=== PATIENT | male | born 1945 | race Caucasian/White ===

== ENCOUNTER 2016-07-16 05:24 | Inpatient (IN) | payer OTHER ==
[2016-06-21 13:25] VITALS: BMI 40.0
--- NOTE | 2016-06-21 13:57 | PAT Medication Instructions ---
Service Date Jun 21, 2016. Current Home Medication List Allopurinol (Zyloprim), 150 MG PO QAM Aspirin (Aspirin Ec), 81 MG PO QAM Aspirin Effervescent (Rossana-Jefferson), 1 TAB PO PRN Buspirone Hcl (Buspirone Hcl), 10 MG PO HS Hydrochlorothiazide (Hctz), 25 MG PO QAM Lisinopril (Zestril), 20 MG PO QAM Morphine Sulfate (Ms Contin), 30 MG PO Q8H Multivitamins/Minerals (Mvi With Minerals), 1 TAB PO QAM Oxycodone Ir (Roxicodone Ir), 5 MG PO Q6H PRN for Pain Prazosin Hcl (Prazosin), 2 MG PO HS Trazodone Hcl (Trazodone), 100 MG PO HS [Nystatin Powder], 1 DOSE TOP PRN Medication Instructions For Your Scheduled Surgery - Hold the following medications 7 days prior to surgery per surgeon's instructions: Aspirin (Aspirin Ec), 81 MG PO QAM - Hold the following medications 24 hours prior to surgery: [Nystatin Powder], 1 DOSE TOP PRN - Hold the following medications the morning of surgery: Hydrochlorothiazide (Hctz), 25 MG PO QAM Lisinopril (Zestril), 20 MG PO QAM Multivitamins/Minerals (Mvi With Minerals), 1 TAB PO QAM Aspirin Effervescent (Rossana-Jefferson), 1 TAB PO PRN - Take the following medications the morning of surgery with a sip of water OTHERWISE NOTHING TO EAT OR DRINK AFTER MIDNIGHT: Allopurinol (Zyloprim), 150 MG PO QAM Morphine Sulfate (Ms Contin), 30 MG PO Q8H (may take if needed up to 4 hours prior to surgery) Oxycodone Ir (Roxicodone Ir), 5 MG PO Q6H PRN for Pain (may take if needed up to 4 hours prior to surgery) - Take the following medications as scheduled the night before surgery: Buspirone Hcl (Buspirone Hcl), 10 MG PO HS Prazosin Hcl (Prazosin), 2 MG PO HS Trazodone Hcl (Trazodone), 100 MG PO HS Morphine Sulfate (Ms Contin), 30 MG PO Q8H Oxycodone Ir (Roxicodone Ir), 5 MG PO Q6H PRN for Pain If you have any questions please call us at [phone] or [phone] or [phone]
--- NOTE | 2016-06-21 14:38 | DIAGNOSTIC IMAGING REPORT ---
CHEST 2 VIEWS ROUTINE CLINICAL HISTORY: PAT preoperative evaluation COMPARISON STUDY: No previous studies for comparison. FINDINGS: Moderate cardiomegaly. Mild tortuosity thoracic aorta. Diaphragms smooth. Lungs are clear. IMPRESSION: No acute process. Electronically signed by: Skinny Gilbert M.D. 06/21/2016 2:37 PM Dictated Date/Time: 06/21/2016 2:36 PM
[2016-06-21 15:47] LABS: PARTIAL THROMBOPLASTIN RATIO 1.1; PROTHROMBIN TIME (PATIENT) 11.1 SECONDS (9.0-12.0)
--- NOTE | 2016-07-12 21:43 | HISTORY & PHYSICAL EXAMINATION ---
DATE OF ADMISSION: 07/16/2016 PREOPERATIVE HISTORY AND PHYSICAL SUBJECTIVE CHIEF COMPLAINT: Right knee pain. HISTORY OF PRESENT ILLNESS: The patient is a 71-year-old male who presents with right knee pain. He states that the pain has been getting progressively worse over time. He describes the pain as being aching, sharp and throbbing. It is now occurring continuously. He has tried conservative therapies such as cortisone injections, viscosupplementation, nonsteroidal anti-inflammatories and physical therapy without any relief. He would like to proceed with a right TKA. PAST MEDICAL HISTORY: Significant for hypertension, shortness of breath, GERD, and gout. PAST SURGICAL HISTORY: Left knee surgery in 1963 and tonsillectomy. SOCIAL HISTORY: Denies alcohol use, denies smoking or tobacco use. Denies IV drug use or illegal drug use. He lives in a 2-soni house. He is currently retired. FAMILY HISTORY: Noncontributory. MEDICATIONS: Multivitamin, aspirin 81 mg once a day, buspirone 10 mg once a day, prazosin 2 mg once a day, allopurinol 300 mg once a day, trazodone 50 mg at bedtime, lisinopril 20 mg once a day, hydrochlorothiazide 50 mg once a day and MS Contin 30 mg every 8 hours. ALLERGIES: No known drug allergies. REVIEW OF SYSTEMS: He denies fevers, chills, headaches, weight loss, double vision, blurry vision, sore throat, hearing loss, tremors, dizziness, numbness or tingling, tired, thirsty, hot and cold intolerance, abdominal pain, nausea, vomiting, diarrhea, heartburn, chest pain, swelling into the legs or feet, frequency, going to the bathroom, pain or burning with urination, wheezing, cough or shortness of breath, depression, thoughts to harm himself or harm others, nervousness or anxiousness. He is positive for joint pain, stiffness and swelling of the right knee. OBJECTIVE: GENERAL APPEARANCE: The patient is a 71-year-old male, who is sitting, in no acute distress. He is awake, alert and oriented x3. He is well-dressed, well-nourished. VITAL SIGNS: He is 5 foot 7 inches, 260 pounds. Blood pressure is 144/70. HEENT: Extraocular movements are intact. PERRLA. Mucosa was moist. No septal deviation. NECK: Supple, no lymphadenopathy, no JVD, no thyromegaly. HEART: Regular rate and rhythm with no murmurs or gallops. LUNGS: Clear to auscultation but distant. No wheezing or rhonchi is noticed. ABDOMEN: Soft, nontender, nondistended. Normal bowel sounds, no hepatosplenomegaly. EXTREMITIES: Paying particular attention to the right knee. He is able to extend actively to 0 degrees and actively flex to 90 degrees. He has medial joint line tenderness decreased range of motion. He has a negative Nithin's, negative valgus/varus stress test, negative anterior drawer and negative posterior drawer. IMPRESSION: Severe end-stage osteoarthritis of the right knee. PLAN: The patient is scheduled for a right TKA. The patient has failed conservative therapies including nonsteroidal anti-inflammatories, cortisone injections, Visco injections and physical therapy without relief. The patient wishes to proceed with a right TKA. Risks and benefits to surgery were discussed that were included but not limited to infection, DVT, pain, stiffness, need for revision surgeries, damage to blood vessels, damage to nerves, PE, and anesthesia risks were all discussed with the patient and he wishes to proceed. All questions were answered to his satisfaction. DVT prophylaxis will be aspirin 81 mg twice a day for 30 days MTDD
[~2016-07-16] VITALS: Ht 170.2 cm; Wt 117.8 kg
[2016-07-16] VITALS (8 sets, daily range): BP systolic 108–153; BP diastolic 55–93; PULSE 56–70; TEMP 36.4–36.9; O2SAT 95–98; Ht 170.2 cm; Wt 117.8 kg
[~2016-07-16 05:24] MED LIST: ALLO100T PO; ASPI81TA28 PO; ASPITAB71 PO; BUSP-8 PO; HYDR25TA4 PO; LISI-725 PO; METO25TA56 PO; MORP30TA23 PO; MULT-513 PO; NYSTATIN POWDER TOP; OXYC1TAB3 PO; PRAZ2CAP3 PO; TRAZ100T29 PO
[2016-07-16] MEDS ORDERED: ROPIVACAINE 5MG/ML 30 ML 150 MG, BUPIVACAINE/EPINEPHR 0.5% MPF 30 ML, KETOROLAC TROMETH... INFIL SCH ×7 (06:00)
[2016-07-16] MEDS ORDERED: GABAPENTIN 300 MG CAP PO SCH (06:00)
[2016-07-16] MEDS ORDERED: CEFAZOLIN 2000 MG/60 ML D5W 60 ML IV SCH (06:00)
[2016-07-16] MEDS ORDERED: FAMOTIDINE 20 MG TAB PO SCH (06:00)
[2016-07-16] MEDS ORDERED: METOCLOPRAMIDE HCL 10 MG TAB PO SCH (06:00)
[2016-07-16] MEDS ORDERED: ACETAMINOPHEN 500 MG TAB PO SCH (06:00)
[2016-07-16] MEDS ORDERED: DEXAMETHASONE 4 MG TAB PO SCH (06:00)
[2016-07-16] MEDS ORDERED: LACTATED RINGER'S 1000ML 1,000 ML IV SCH ×2 (06:00)
[2016-07-16] MEDS ORDERED: CeleBREX 200 MG CAP PO SCH (06:00)
[2016-07-16] MEDS ORDERED: LACTATED RINGER'S 1000ML IV SCH (06:00)
[2016-07-16] MEDS ORDERED: BUPIVACAINE 0.25% 30 ML VIAL ONE (06:16)
[2016-07-16] MEDS ORDERED: BUPIVACAINE 0.5 % 5 MG/1 ML PF 10ML VIAL ONE (06:16)
--- NOTE | 2016-07-16 06:55 | History & Physical Bridge Note ---
H&P Re-Evaluation Bridge Note: I have examined the patient, reviewed the History & Physical and in the interval since the performance of the History & Physical I have noted the following changes of clinical significance: No changes noted
[2016-07-16] MEDS ORDERED: PROPOFOL IV EMULSION 10 MG/ML 20 ML VIAL IV ONE (06:57)
[2016-07-16] MEDS ORDERED: LIDOCAINE 2% 20 MG/ML 5ML SYR ONE (06:57)
[2016-07-16] MEDS ORDERED: FENTANYL CITRATE INJ 50 MCG/1 ML 2 ML VIAL ONE (06:57)
[2016-07-16] MEDS ORDERED: MIDAZOLAM HCL 1 MG/ML 2ML VIAL ONE (06:57)
[2016-07-16] MEDS ORDERED: TRANEXAMIC ACID AMP 1,000 MG in NSS 100ML IV SCH ×2 (07:00→07:30)
[2016-07-16] MEDS ORDERED: NURSING VERBAL MED ORDER ONE (07:00)
[2016-07-16] MEDS ORDERED: BACITRACIN 50000 UNIT VIAL ONE (07:02)
[2016-07-16] MEDS ORDERED: ORTHO JOINT ANESTHETIC ONE (07:02)
[2016-07-16] MEDS ORDERED: POVIDONE-IODINE OP SOLN 30 ML BTL ONE (07:02)
[2016-07-16] MEDS ORDERED: PROMETHAZINE HCL INJ 12.5 MG in SODIUM CHLORIDE 0.9% 50ML 50 ML IV PRN (10:15)
[2016-07-16] MEDS ORDERED: ASPIRIN PO SCH (10:15)
[2016-07-16] MEDS ORDERED: MAGNESIUM HYDROXIDE SUSP 30 ML UDC PO PRN (10:15)
[2016-07-16] MEDS ORDERED: ALUMINUM/MAGNESIUM/SIMETH (MAALOX MAX) 30 ML UDC PO PRN (10:15)
[2016-07-16] MEDS ORDERED: BISACODYL 10 MG SUPP PR PRN (10:15)
[2016-07-16] MEDS ORDERED: FLUMAZENIL 0.1 MG/1 ML 10 ML VIAL IV PRN (10:15)
[2016-07-16] MEDS ORDERED: SODIUM BICARBONATE PO SCH (10:15)
[2016-07-16] MEDS ORDERED: EpHEDrine SULFATE INJ 50 MG/ML AMP IV PRN (10:15)
[2016-07-16] MEDS ORDERED: LABETALOL HCL IV 5 MG/ML 20ML IV PRN (10:15)
[2016-07-16] MEDS ORDERED: SOD PHOSPHATE/SOD BIPHOSPHATE ENEMA 132 ML BTL PR PRN (10:15)
[2016-07-16] MEDS ORDERED: ZOLPIDEM TARTRATE 5 MG TAB PO PRN (10:15)
[2016-07-16] MEDS ORDERED: ONDANSETRON INJ 2 MG/ML 2 ML VIAL IV PRN ×2 (10:15)
[2016-07-16] MEDS ORDERED: NALOXONE HCL 0.4 MG/1 ML VIAL/CARP IV PRN (10:15)
[2016-07-16] MEDS ORDERED: CITRIC ACID PO SCH (10:15)
[2016-07-16] MEDS ORDERED: ATROPINE SULFATE 0.1 MG/ML 5ML SYR IV PRN (10:15)
--- NOTE | 2016-07-16 10:47 | DIAGNOSTIC IMAGING REPORT ---
RIGHT KNEE 1 OR 2 VIEWS ROUTINE CLINICAL HISTORY: AP/LATERAL IN PACU RIGHT KNEE Right COMPARISON: None. DISCUSSION: Patient is status post total right knee replacement. There is good contact between prosthetic and underlying bone. Surgical drains are in position. Expected soft tissue postoperative change IMPRESSION: Anatomic alignment status post total right knee replacement Electronically signed by: Skinny Gilbert M.D. 07/16/2016 10:46 AM Dictated Date/Time: 07/16/2016 10:45 AM
--- NOTE | 2016-07-16 10:48 | Anesthesiology Progress Note ---
Anesthesia Post Op Note Date & Time Jul 16, 2016 at 10:48 Vital Signs Pain Intensity: 0 Vital Signs Past 12 Hours Date Time Temp Pulse Resp B/P Pulse Ox O2 Delivery O2 Flow Rate FiO2 07/16/16 10:40 70 16 148/78 100 Nasal Cannula 2 07/16/16 10:30 68 13 146/84 100 Mask 10 07/16/16 10:20 75 16 140/88 100 Mask 10 07/16/16 10:10 36.0 77 16 139/73 98 Mask 10 07/16/16 05:49 36.8 69 18 153/93 98 Room Air Notes Mental Status: alert / awake / arousable, participated in evaluation Pt Amnestic to Procedure: Yes Nausea / Vomiting: adequately controlled Pain: adequately controlled Airway Patency, RR, SpO2: stable & adequate BP & HR: stable & adequate Hydration State: stable & adequate Neuraxial Anesthesia: was administered, sensory block is resolving Anesthetic Complications: no major complications apparent
[2016-07-16] MEDS ORDERED: NYSTATIN POWDER 15GM BTL EXT PRN (11:15)
--- NOTE | 2016-07-16 12:06 | OPERATIVE REPORT ---
DATE OF OPERATION: 07/16/2016 PREOPERATIVE DIAGNOSIS: Right knee degenerative joint disease. POSTOPERATIVE DIAGNOSIS: Same. PROCEDURE: Right total knee arthroplasty. SURGEON: Dr. Gomez. APPIAN DEVELOPER: Moe Roberto PA-C, who was necessary for assistance of procedure with positioning, prepping, draping, retraction and closure. ANESTHESIA: Spinal with adductor canal block. SPECIMEN: Bone and tissue. ESTIMATED BLOOD LOSS: 20 mL. IMPLANTS: Travis \T\ Nephew Journey version 2, femur 5, tibia 5, poly 9, and patella 32 oval. DRAINS: Two Hemovac. COMPLICATIONS: None. INDICATIONS: The patient is a 71-year-old male with longstanding osteoarthritis of the right knee and bone on bone medial compartment. He is failing conservative measures including injection and anti-inflammatories. He wished to proceed with right total knee arthroplasty. Risks, benefits and alternatives to surgery including, but not limited to infection, DVT, pain, stiffness, need for urgent surgery, failure to relieve all symptoms, damage to blood vessels, damage to nerves, and risks of anesthesia were discussed with the patient and he wished to proceed. DESCRIPTION OF PROCEDURE: The patient was identified, laterality was confirmed and marked. He received a preoperative antibiotic as well as a spinal anesthetic and adductor canal block. The leg was prepped and draped in usual sterile manner with ChloraPrep. The limb was exsanguinated and tourniquet was inflated. I made a longitudinal incision in the anterior aspect of the knee, sharply incising the skin utilizing Bovie electrocautery to achieve hemostasis. I made a medial parapatellar arthrotomy. Next, I excised the anterior horns of the medial and lateral meniscus and elevated the deep MCL off the medial face of the tibia. I then pinned into place patient matched distal femoral cutting guide, made my distal femoral resection and pinned into place a size 5-in-1 cutting guide. I then made my anterior, posterior and chamfer cuts. I then pinned into place patient matched tibial cutting guide, made my tibial resection and then removed the remaining portions of the meniscus. I then positioned and pinned into place a size 5 tibia cut for the post. Posterior osteophytes were then removed off of the femur and the trial femur was placed into position. We reamed the trochlear component and placed the trochlear into position. I then placed a 9 poly, had good range of motion, good soft tissue balancing with a 9. I then prepared the patella with freehand cut, sized and drilled for a size 32 oval. Wound was thoroughly irrigated. Trial components were removed. Deep tissues were anesthetized with an ortho mix solution and then with Simplex HV with gent cement, cemented the definitive components. This was a size 5 femur, tibia 5, poly 9, and patella 32 oval. A Betadine soak was performed. The arthrotomy was then closed with interrupted #1 Vicryl suture after deep drain was placed. Subcutaneous tissue was closed with interrupted 2-0 Vicryl suture and skin with ksenia. Sterile dressing was applied and tourniquet was released. All needle and sponge counts were correct at the end of the procedure. The patient was transferred to the PACU in stable condition without apparent complication. I attest to the content of the Intraoperative Record and any orders documented therein. Any exceptio ns are noted below.
[2016-07-16] MEDS: D5W AND 1/2NSS + 20MEQ KCL 1,000 ML IV SCH ×2 (12:21→21:50)
[2016-07-16] MEDS: FERROUS GLUCONATE 324 MG TAB PO SCH ×2 (12:21→18:05)
[2016-07-16] MEDS: ACETAMINOPHEN 500 MG TAB PO SCH ×2 (13:51→21:52)
[2016-07-16] MEDS: OXYCODONE HCL IR 5 MG TAB (IMMEDIATE RELEASE) PO PRN ×3 (14:21→22:02)
[2016-07-16] MEDS: CEFAZOLIN IV 2,000 MG in DEXTROSE 5% 50ML 50 ML IV SCH ×2 (16:13→23:46)
[2016-07-16] MEDS: METOPROLOL TARTRATE 25 MG TAB PO SCH (21:00)
[2016-07-16] MEDS: TRAZODONE HCL 100 MG TAB PO SCH (21:50)
[2016-07-16] MEDS: SENNA 8.6 MG TAB PO SCH (21:51)
[2016-07-16] MEDS: OXYCODONE HCL 10 MG TABCR (OXYCONTIN) PO SCH (21:51)
[2016-07-16] MEDS: CeleBREX 200 MG CAP PO SCH (21:52)
[2016-07-16] MEDS: ASPIRIN 81 MG ECTAB PO SCH (21:52)
[2016-07-16] MEDS: DOCUSATE SODIUM 100 MG CAP PO SCH (21:53)
[2016-07-16] MEDS: PRAZOSIN HCL 1 MG CAP PO SCH (21:54)
[2016-07-17] VITALS (8 sets, daily range): BP systolic 101–153; BP diastolic 62–81; PULSE 55–82; TEMP 36.4–36.9; O2SAT 87–100
[2016-07-17] MEDS: ACETAMINOPHEN 500 MG TAB PO SCH ×3 (05:39→21:14)
[2016-07-17 05:49] LABS: HEMATOCRIT 32.9 % (42-52); MEAN CELL VOLUME 88.9 fL (80-100); MEAN CORPUSCULAR HEMOGLOBIN 30.3 pg (25-34); MEAN PLATELET VOLUME 9.1 fL (7.4-10.4); PLATELET COUNT 179 K/uL (130-400); WHITE BLOOD COUNT 11.29 K/uL (4.8-10.8)
[2016-07-17 05:57] LABS: INR 1.1 (0.9-1.1); PROTHROMBIN TIME (PATIENT) 11.6 SECONDS (9.0-12.0)
[2016-07-17 06:20] LABS: BUN/CREATININE RATIO 27.5 (10-20); CREATININE 1.8 mg/dl (0.60-1.40); POTASSIUM 4.8 mmol/L (3.5-5.1)
[2016-07-17] MEDS: OXYCODONE HCL IR 5 MG TAB (IMMEDIATE RELEASE) PO PRN ×3 (07:22→21:12)
[2016-07-17] MEDS: D5W AND 1/2NSS + 20MEQ KCL 1,000 ML IV SCH (07:23)
[2016-07-17] MEDS: OXYCODONE HCL 10 MG TABCR (OXYCONTIN) PO SCH ×2 (08:38→21:10)
[2016-07-17] MEDS: METOPROLOL TARTRATE 25 MG TAB PO SCH ×2 (08:39→21:00)
[2016-07-17] MEDS: FERROUS GLUCONATE 324 MG TAB PO SCH ×3 (08:39→15:56)
[2016-07-17] MEDS: LISINOPRIL 20 MG TAB PO SCH (08:39)
[2016-07-17] MEDS: MULTIVITAMIN TAB PO SCH (08:39)
[2016-07-17] MEDS: PANTOprazole SOD 40 MG TAB PO SCH (08:39)
[2016-07-17] MEDS: CeleBREX 200 MG CAP PO SCH ×2 (08:40→21:11)
[2016-07-17] MEDS: DOCUSATE SODIUM 100 MG CAP PO SCH ×2 (08:40→21:00)
[2016-07-17] MEDS: HYDROCHLOROTHIAZIDE 25 MG TAB PO SCH (08:40)
[2016-07-17] MEDS: ALLOPURINOL 100 MG TAB PO SCH (08:40)
[2016-07-17] MEDS: ASPIRIN 81 MG ECTAB PO SCH ×2 (08:40→21:10)
--- NOTE | 2016-07-17 10:12 | Orthopedic Progress Note ---
Orthopedic Progress Note Date of Service Jul 17, 2016. Subjective Post OP Day: 1 Reports: feeling well, pain controlled w PO medications, Denies: SOB, calf pain , chest pain, light headedness, nausea / vomiting Additional Notes: Would like to go home today if therapy goes well. Objective calves soft nontender, N/V intact, capillary refill less than 2 sec., dressing C /D/I, A&O x3, toes mobile, hemovac drainage (75 cc today.) Date Time Temp Pulse Resp B/P Pulse Ox O2 Delivery O2 Flow Rate FiO2 07/17/16 07:33 36.4 69 19 128/81 97 Room Air 07/17/16 07:20 Room Air 07/17/16 06:00 73 07/17/16 03:05 36.4 55 15 153/75 98 Room Air 07/16/16 23:35 Room Air 07/16/16 23:11 36.4 60 16 108/55 98 Room Air 07/16/16 20:22 36.7 70 16 133/80 97 Room Air 07/16/16 16:00 Nasal Cannula 2.0 07/16/16 15:30 36.4 61 16 139/81 95 Nasal Cannula 2.0 07/16/16 13:08 36.9 70 17 132/70 97 Nasal Cannula 2.0 07/16/16 12:06 36.6 56 20 132/77 98 Nasal Cannula 2.0 07/16/16 11:42 36.6 68 18 123/77 97 Nasal Cannula 2.0 07/16/16 11:10 98 Nasal Cannula 2.0 07/16/16 11:10 Nasal Cannula 07/16/16 11:10 36.6 69 18 121/68 98 Nasal Cannula 2.0 07/16/16 11:01 60 17 112/79 98 Nasal Cannula 2 07/16/16 10:50 36.7 66 16 146/80 98 Nasal Cannula 2 07/16/16 10:40 70 16 148/78 100 Nasal Cannula 2 07/16/16 10:30 68 13 146/84 100 Mask 10 07/16/16 10:20 75 16 140/88 100 Mask 10 Laboratory Results 24 Hours: Test 07/17/16 05:30 07/17/16 05:35 Hematocrit 32.9 % Hemoglobin 11.2 g/dL Prothromb Time International Ratio 1.1 Prothrombin Time 11.6 SECONDS Assessment & Plan Assessment: POD #1 s/p right TKA Plan: PT/OT Plan for d/c today after therapy. Inhouse Planning Pain Management: Celebrex, Oxycontin, PO Tylenol, Oxy IR DVT Prophylaxis: TEDs, ASA Discharge Planning Discharge Planning: home with home health Pain Management: Celebrex, Oxycontin, PO Tylenol, Oxy IR DVT Prophylaxis: TEDs, ASA
[2016-07-17] MEDS ORDERED: RXC5 PO (10:15)
[2016-07-17] MEDS ORDERED: ACET-1138 PO (10:15)
[2016-07-17] MEDS ORDERED: OXYSR10 PO (10:15)
[2016-07-17] MEDS ORDERED: ONDA8TAB6 PO (10:15)
[2016-07-17] MEDS ORDERED: ASPEC81 PO (10:15)
[2016-07-17] MEDS ORDERED: CLB200 PO (10:15)
--- NOTE | 2016-07-17 10:17 | Discharge Instructions ---
Discharge Instructions Date of Service Jul 17, 2016. Admission Reason for Admission: Right Knee Osteoarthritis Discharge Discharge Diagnosis / Problem: right knee osteoarthritis Discharge Goals Goal(s): Decrease discomfort, Improve function Activity Recommendations Activity Limitations: as noted below Lifting Limitations: until after follow-up appointment Exercise/Sports Limitations: until after follow-up appointment May Resume Sexual Activity: when tolerated Shower/Bathe: keep incision dry (Keep Silverlon dressing in place for 7 days.) Driving or Machine Use: When cleared by Dr. Gomez's clinic. Weightbearing Status: Right weightbearing (as tolerated) . Instructions / Follow-Up Instructions / Follow-Up ACTIVITY RECOMMENDATIONS: SELF CARE INSTRUCTIONS AFTER TOTAL KNEE REPLACEMENT A. You may need to continue a physical therapy program after discharge from the hospital. There are several options available to you. Your doctor will assist you in selecting the best one for you. 1. An out-patient facility 3 times a week for therapy. 2. Home therapy for 1 to 2 weeks with outpatient therapy to follow. 3. Continue working on all exercises taught by physical therapy three times a day for 20 minutes on non-therapy days. Your goals should be to increase the bending of your knee to 90 degrees and beyond and to fully straighten your knee. Ice and elevate knee after exercise. B. Weight as tolerated with a walker or as instructed by your physician. C. It is okay to shower if minimal to no drainage from incision. No Baths. Do not soak wound. D. Make walking a part of your daily routine. Be up as much as comfortable with rest periods throughout the day. Rest with leg elevation is very important. Use the ice wrap frequently for the first 3-4 weeks. E. There are no restrictions on activities. You may ride in a car, shop, participate in chief medical director and all social activities. F. Wear the long elastic stockings (STALIN hose) 20 hours a day for one month after surgery. They can be removed several times a day for laundering and when showering. G. Silverlon- This is a large adhesive bandage that contains silver ions. This helps your incision heal by fighting off bacteria and protecting it from the outside environment. You are permitted to shower with this dressing. This will remain on your incision for 7 days and then should be removed. Some visible blood or drainage through the dressing window is normal. If there is significant drainage or leaking noted before the 7 days notify your doctor's office immediately. Once removed, keep incision clean and dry. If there is any drainage or redness noted, please call your surgeon. SPECIAL CARE INSTRUCTIONS: VERY IMPORTANT TO READ AND REVIEW A. Take Coumadin, Xarelto, Aspirin or Lovenox (blood thinning medications) as directed by your doctor. If on Coumadin, have a pro-time (blood test) drawn according to your doctor's instructions. This will tell the doctor how well the Coumadin is thinning your blood. B. There are a few signs you need to watch for after you are home. Call [facility] if you notice any of the followin. Increased severe knee pain. Some pain is expected especially when you exercise. 2. Increased swelling in your leg or knee; pain or swelling of the calf muscle in either lower leg. 3. Any redness or fluid drainage from the incision. 4. Shortness of breath or chest pain. 5. A Temperature of 101 degrees F or greater. C. Please call [facility] at if you have any concerns or questions about your operation or recovery. The doctor or his nurse will return your call promptly. D. You must take antibiotics before dental work, bladder, bowel or other surgery. Your doctor will provide you with a permanent care to carry describing this precaution. FOLLOW UP VISIT: If appointment is not already scheduled: Please call [facility] to make a follow-up appointment for one month after your surgery at . Current Hospital Diet Patient's current hospital diet: Regular Diet Discharge Diet Recommended Diet: Regular Diet Procedures Procedures Performed: Right Total Knee Arthroplasty Cemented Pending Studies Studies pending at discharge: no Medical Emergencies . Who to Call and When: Medical Emergencies: If at any time you feel your situation is an emergency, please call [phone] immediately. . Non-Emergent Contact Non-Emergency issues call your: Surgeon Call Non-Emergent contact if: temperature is above 101, your pain is not controlled, your pain is worsening, wound has increased drainage, wound has increased redness, wound has increased pain . "Provider Documentation" section prepared by Dexter Altamirano. VTE Core Measure Inpt VTE Proph given/why not?: Other Anticoagulation (Aspirin 81 mg every 12 hours for 30 days.), T.E.D. Stockings
[2016-07-17] MEDS: SENNA 8.6 MG TAB PO SCH (21:00)
[2016-07-17] MEDS: TRAZODONE HCL 100 MG TAB PO SCH (21:10)
[2016-07-17] MEDS: PRAZOSIN HCL 1 MG CAP PO SCH (21:11)
[2016-07-18] MEDS: OXYCODONE HCL IR 5 MG TAB (IMMEDIATE RELEASE) PO PRN ×2 (01:59→10:12)
[2016-07-18] MEDS: ACETAMINOPHEN 500 MG TAB PO SCH (06:36)
[2016-07-18 07:36] VITALS: BP 144/75; PULSE 65; TEMP 36.5; O2SAT 96
--- NOTE | 2016-07-18 08:20 | Orthopedic Progress Note ---
Orthopedic Progress Note Date of Service Jul 18, 2016. Subjective Post OP Day: 2 Reports: complaints (Knee is sore today but states he had a ramp put in at his house so he won't have to do the steps into the house.), feeling well, pain controlled w PO medications, Denies: SOB, calf pain, chest pain, light headedness, nausea / vomiting Objective calves soft nontender, N/V intact, capillary refill less than 2 sec., dressing C /D/I, A&O x3, toes mobile Patient resting comfortably and was asleep in bed upon my arrival. Silverlon dressing in place. Date Time Temp Pulse Resp B/P Pulse Ox O2 Delivery O2 Flow Rate FiO2 07/18/16 07:36 36.5 65 19 144/75 96 Room Air 07/17/16 23:50 Room Air 07/17/16 23:23 36.6 71 20 138/78 97 Room Air 07/17/16 21:15 71 101/62 07/17/16 15:30 Room Air 07/17/16 14:59 36.6 77 16 110/68 98 Room Air 07/17/16 13:07 82 87 07/17/16 12:30 36.9 71 17 102/64 100 Room Air 07/17/16 11:10 36.4 69 19 97 Room Air Assessment & Plan Assessment: POD #2 s/p right TKA Plan: PT/OT Plan for d/c today after therapy. Inhouse Planning Pain Management: Celebrex, Oxycontin, PO Tylenol, Oxy IR DVT Prophylaxis: Navid ASA Discharge Planning Discharge Planning: home with home health Pain Management: Celebrex, Oxycontin, PO Tylenol, Oxy IR DVT Prophylaxis: TEDs ASA
[2016-07-18] MEDS: OXYCODONE HCL 10 MG TABCR (OXYCONTIN) PO SCH (08:22)
[2016-07-18] MEDS: ALLOPURINOL 100 MG TAB PO SCH (08:23)
[2016-07-18] MEDS: FERROUS GLUCONATE 324 MG TAB PO SCH (08:23)
[2016-07-18] MEDS: CeleBREX 200 MG CAP PO SCH (08:23)
[2016-07-18] MEDS: DOCUSATE SODIUM 100 MG CAP PO SCH ×2 (08:23→08:29)
[2016-07-18] MEDS: METOPROLOL TARTRATE 25 MG TAB PO SCH (08:24)
[2016-07-18] MEDS: ASPIRIN 81 MG ECTAB PO SCH (08:24)
[2016-07-18] MEDS: PANTOprazole SOD 40 MG TAB PO SCH (08:24)
[2016-07-18] MEDS: MULTIVITAMIN TAB PO SCH (08:24)
[2016-07-18] MEDS: LISINOPRIL 20 MG TAB PO SCH (08:25)
[2016-07-18] MEDS: HYDROCHLOROTHIAZIDE 25 MG TAB PO SCH (08:25)
--- NOTE | 2016-07-21 11:34 | DISCHARGE SUMMARY ---
ADMISSION DIAGNOSIS: Right knee osteoarthritis. DISCHARGE DIAGNOSIS: Status post right total knee arthroplasty. ADMITTING PHYSICIAN: Dr. Shaan Gomez. CONSULTS: None. PROCEDURE: On 07/16/2016 the patient had a right TKA. HISTORY OF PRESENT ILLNESS: The patient is a 71-year-old male who presented with right knee pain. He states that the pain is getting progressively worse over time. He described the pain as being aching, sharp and throbbing and now occurs continuously. He has tried conservative therapies including cortisone injections, Visco injections, nonsteroidal anti-inflammatories, and physical therapy without relief. He would like to proceed with a right TKA. Postop day 1 the patient reports feeling well. Pain was controlled with p.o. medications. He denied shortness of breath, calf pain, chest pain, lightheadedness, nausea or vomiting. His Hemovac drainage was 75 mL. His plan was to be discharged after therapy. Postop day 2 the patient complained of the knee feeling sore but his pain was controlled with p.o. medications. He denied shortness of breath, calf pain, chest pain, lightheadedness, nausea or vomiting. Silverlon dressing was intact. Plan was to be discharged after physical therapy. DISCHARGE CONDITION: Stable. DISPOSITION: Home with home health. MEDICATIONS: Acetaminophen 1000 mg by mouth every 8 hours, aspirin 81 mg twice a day for 30 days, Celebrex 200 mg by mouth twice daily, Zofran 8 mg by mouth every 8 hours as needed for nausea, Oxycotin 10 mg by mouth every 12 hours , oxycodone 5-10 mg by mouth every 4 hours as needed for pain, allopurinol 150 mg by mouth daily in the morning, buspirone 10 mg by mouth at bedtime, hydrochlorothiazide 25 mg by mouth daily in the morning, lisinopril 20 mg by mouth daily in the morning, Lopressor 25 mg by mouth twice daily taking one-half tablet twice daily, prazosin 2 mg by mouth at bedtime, trazadone 100 mg by mouth at bedtime. INSTRUCTIONS: The patient is allowed to weight bear on the right lower extremity as tolerated. He is to keep the incision dry and Silverlon dressing in place for 7 days. He is to start physical therapy 3 times a week. His goal is to reach 90 degrees of flexion and be able to fully straighten his knee. He is to no soak his wound or to bathe. He is allowed to take a shower and allow water to run over his incision as long as there is no drainage. He is to wear long elastic stockings 20 hours a day for 1 month after surgery. Silverlon dressing will be in place for 7 days. He is to call [facility] if he notices increase in knee pain, any swelling or drainage from the incision site, any shortness of breath or chest pain, or fever greater than 101 degrees. He is to follow up in 12-14 days after surgery with Dr. Gomez or his physician ob gyn physician assistant. JONAH
== END 2016-07-18 12:46 | disposition home health service (06) | DRG 470 ==
LOC: ENRESERVDT → ENRESERVTM → C.ACU 05:24 → C.3E 07:00
PROVIDERS: ADMIT Orthopaedic Surgery; ATTEND Orthopaedic Surgery
PROC: 0SRC0J9 Replacement of Right Knee Joint with Synthetic Substitute, Cemented, Open Approach (ICD-10-PCS; principal; 2016-07-16 07:45)
DX: M17.11 Unilateral primary osteoarthritis, right knee (principal); I10 Essential (primary) hypertension; K21.9 Gastro-esophageal reflux disease without esophagitis; M10.9 Gout, unspecified; Z79.82 Long term (current) use of aspirin; Z79.899 Other long term (current) drug therapy

== ENCOUNTER 2016-07-26 17:10 | Inpatient (IN) | payer OTHER ==
[~2016-07-26] VITALS: Ht 170.2 cm; Wt 130.0 kg
[~2016-07-26 17:10] MED LIST changes: +ACET-1138 PO; +ASPEC81 PO; -ASPI81TA28 PO; +CLB200 PO; -MORP30TA23 PO; +ONDA8TAB6 PO; +OXYSR10 PO; +RXC5 PO
[2016-07-26 18:30] VITALS: BP 103/56; PULSE 79; TEMP 36.8; O2SAT 98; Ht 170.2 cm; Wt 130.0 kg
[2016-07-26] MEDS: PATIENT'S HEIGHT AND/OR WEIGHT NEEDED SCH ×5 (19:00→20:22)
[2016-07-26] MEDS ORDERED: MoRPHine SULFATE 4 MG/ML 1 ML CARP\\VIAL IV PRN (19:00)
[2016-07-26] MEDS ORDERED: VANCOMYCIN CONSULT ACTIVE PRN (19:00)
[2016-07-26] MEDS ORDERED: OXYCODONE HCL IR 5 MG TAB (IMMEDIATE RELEASE) PO PRN (19:00)
[2016-07-26] MEDS ORDERED: MoRPHine SULFATE 2 MG/ML CARP IV PRN (19:00)
[2016-07-26] MEDS ORDERED: VANCOMYCIN INJ 2,750 MG in SODIUM CHLORIDE 0.9% 500ML 500 ML IV ONE (19:00)
--- NOTE | 2016-07-26 20:04 | HISTORY & PHYSICAL EXAMINATION ---
DATE OF ADMISSION: 07/26/2016 CHIEF COMPLAINT: Right leg pain. HISTORY OF PRESENT ILLNESS: The patient is a 71-year-old male who about a week and a half ago underwent right total knee arthroplasty. He did well postoperatively. He was on the commode earlier today was trying to get up, tripped and had a hyperflexion type injury to the knee. He had immediate pain and inability to bear weight. He was seen and evaluated at [facility]. X-rays demonstrated a spiral oblique fracture of the right femur. He was also found to have a popliteal clot and developing cellulitis along the tibia. He was also noted to have a significantly elevated D-dimer as well as elevated BUN and creatinine. He was placed in an immobilizer and transferred to [facility] for definitive care of the fracture. Currently, complaining of right leg pain. Denies numbness, tingling. Denies loss of consciousness. PAST MEDICAL HISTORY: Hypertension, shortness of breath, GERD, gout. PAST SURGICAL HISTORY: Right total knee arthroplasty, tonsillectomy, left knee surgery in 1963. SOCIAL HISTORY: Denies smoking, alcohol or drug use. FAMILY HISTORY: Noncontributory. MEDICATIONS: Multivitamin, aspirin 81 mg p.o. every day, buspirone 10 mg p.o. every day, prazosin 2 mg every day, allopurinol 300 mg every day, trazodone 50 mg at bedtime, lisinopril 20 mg p.o. every day, hydrochlorothiazide 50 mg p.o. every day, MS Contin 30 mg p.o. q. 8 hours, oxycodone. ALLERGIES: No known drug allergies. REVIEW OF SYSTEMS: As above. PHYSICAL EXAMINATION: GENERAL APPEARANCE: Alert and oriented x3, no acute distress. Mood and affect normal subsequent. HEENT: Atraumatic. CHEST: Clear. CARDIOVASCULAR: Regular rhythm. EXTREMITIES: Right lower extremity. He has anterior incision consistent with right total knee arthroplasty. The incision itself is clean, dry and intact. There is swelling distally with some erythema from about the proximal quarter of the tibia distally along the tibia extending out laterally. The incision itself does not have a whole lot of erythema, but he does have erythema distally. He also has blistering over the foot which is serous and some ecchymoses on the region of the heel. Light touch sensation is intact, distally he is able to move the toes. IMAGING DATA: X-ray from outside facility demonstrated a spiral oblique fracture of the distal femur. There is technique artifact on multiple images, the fracture itself is not visualized well on one single image, but the prosthesis appears to be intact with no evidence of loosening. Fracture does not appear to extend to the implant. LABORATORY DATA: White blood cell count is 11, hemoglobin 9.5. BUN and creatinine significantly elevated. D-dimer significantly elevated. ASSESSMENT: Right femur fracture one and half week status post right total knee arthroplasty. PLAN: We are going to check some new x-rays of the femur as I am unsatisfied with the quality of the images that we have currently. If does demonstrate displaced fracture, he will need open reduction internal fixation, but whether this is with intramedullary nail or with plate fixation would be more dictated by better x-rays. He has evidence of a clot in the leg on ultrasound. I would not like to put him on anticoagulation, given his femur fracture. Given the need to manipulate the leg to fixate the fracture, I will be consulting vascular surgery for evaluation for possible IVC filter placement. Will also consult medicine for preoperative clearance clearly given his elevated kidney function labs. He had a dose of Rocephin in the Emergency Room and I will continue him on IV vancomycin for treatment of cellulitis of lower extremity. This is likely a combination of little bit of cellulitis as well as some erythema and swelling just from his DVT. He is to be nonweightbearing in the right lower extremity. He will be n.p.o. after midnight. I do not know whether he will be cleared for surgery tomorrow or if will be able to get an IVC filter into him tomorrow, so I do not know whether we will be able to perform the ORIF tomorrow or not. He is tentatively on the schedule for this but will be pending both medical clearance as well as the resolution of the cellulitis as well as evaluation by vascular surgery for possible IVC filter.
--- NOTE | 2016-07-26 20:12 | DIAGNOSTIC IMAGING REPORT ---
RIGHT FEMUR 2 VIEWS ROUTINE CLINICAL HISTORY: Right femur pain. History of fracture. COMPARISON: Outside study dated 07/26/2016 DISCUSSION: There are postsurgical changes of a total knee arthroplasty. There is a comminuted displaced fracture of the distal femoral diaphysis. There is 16 degrees of angulation at the fracture site. There is 4 cm of anterior displacement of the major distal fragment. IMPRESSION: Angulated displaced comminuted fracture of the right femur at the junction of the middle and distal one third.. Electronically signed by: Roel Ruiz M.D. 07/26/2016 8:11 PM Dictated Date/Time: 07/26/2016 8:09 PM
--- NOTE | 2016-07-26 20:13 | Pharmacy Progress Note ---
Pharmacy Antibiotic Consult Date of Service: Jul 26, 2016. Pharmacy Dosing Scope Pharmacy is consulted to initiate vancomycin IV dosing therapy, order appropriate labs and adjust drug dose/frequency. Subjective The patient is a 71 year old male admitted on Jul 26, 2016 at 18:43 after he fell at home. He fractured his femur. He had a right TKA earlier in July. Objective Weight (Kilograms): 117.8 Lab Results (24hrs): Laboratory Tests Test 07/26/16 19:25 07/26/16 19:34 Creatinine 4.30 mg/dl Assessment & Plan Loading dose: vancomycin 2750 mg (23 mg/kg) IV X 1 dose then: Random level has been ordered for: . I believe that his JOHN may resolve overnight so I will order a random level tomorrow morning. Goal peak level estimate: between 35 - 40 mcg/mL. Goal trough level estimate: between 15 - 20 mcg/mL (indication: joint infection ). Pharmacy will continue to follow and will adjust dose/frequency as necessary. Thank you
[2016-07-26] MEDS: D5W AND 1/2NSS 1,000 ML IV SCH (20:49)
[2016-07-26] MEDS: OXYCODONE HCL 10 MG TABCR (OXYCONTIN) PO SCH (20:53)
[2016-07-26 21:00] LABS: BASO % 0.1 %; BASO ABS # 0.01 K/uL (0-0.2); EOS % 0.1 %; HEMATOCRIT 24.7 % (42-52); IG% 0.3 %; LYMPH % 10.1 %; LYMPH ABS # 0.78 K/uL (1.2-3.4); MEAN CELL VOLUME 89.5 fL (80-100); MEAN CORPUSCULAR HEMOGLOBIN 30.8 pg (25-34); MEAN CORPUSCULAR HGB CONC 34.4 g/dl (32-36); MEAN PLATELET VOLUME 8.3 fL (7.4-10.4); MONO % 7.4 %; PLATELET COUNT 232 K/uL (130-400); RED BLOOD COUNT 2.76 M/uL (4.7-6.1); WHITE BLOOD COUNT 7.72 K/uL (4.8-10.8)
[2016-07-26] MEDS ORDERED: TAMS0.4C38 PO (21:14)
[2016-07-26 21:30] LABS: BUN/CREATININE RATIO 28.1 (10-20); CALCIUM 7.7 mg/dl (8.5-10.1); CREATININE 4.2 mg/dl (0.60-1.40); MAGNESIUM 2.6 mg/dl (1.8-2.4); POTASSIUM 4.9 mmol/L (3.5-5.1)
[2016-07-26 21:36] LABS: COMPLETE YES
--- NOTE | 2016-07-26 22:12 | Medical Consult ---
Consultation Date of Consultation: Jul 26, 2016. Attending Physician: Shaan Gomez M.D. Reason for Consultation: Medical management History of Present Illness Patient seen and examined. 71 year old male with PMHx of HTN, GERD, and gout is seen in consultation for medical management at the request of Dr. Gomez. Patient had a RTKA on 07/16. Since then he was doing fairly well and discharged home with home PT and nursing care. 2 days ago patient began developing erythema , edema, and blisters to the RLLE. He went to [facility] ED yesterday and was apparently told this was a normal finding and discharged home. Today the patient was in the bathroom and when he stood up from the commode he fell onto his right side. He denies being able to get up and laid there until his home nurse arrived about a half hour later. He reported immediate pain to the RLLE. He denies any chest pain, lightheadedness, dizziness prior to the fall. He reports over the last few days he has had chills but denies fevers. He denies URI symptoms, chest pain, palpitations, nausea, vomiting, diarrhea, dysuria. He reports poor po intake. He reports significant tylenol use. He reports daily dilshad seltzer for GERD which contains aspirin. He takes Celebrex, otherwise he denies any additional NSAID use. Today patient was transported to [facility] by EMS. In the ED patient was hypotensive, he had leukocytosis, lactate was normal. He was diagnosed with cellulitis and received Rocephin. Patient also had a right femur fracture. Lab work also revealed, an elevated Ddimer, K+ of 5.8, and crea of 4.8. Doppler US showed right acute popliteal DVT. Patient received IVFs, pain control, and rocephin and was transferred to [facility] for further care. Past Medical/Surgical History Medical Problems: (1) GERD (gastroesophageal reflux disease) Status: Chronic (2) Gout Status: Chronic (3) HTN (hypertension) Status: Chronic Surgical Problems: (1) History of tonsillectomy Status: Chronic (2) History of total knee arthroplasty Status: Chronic Social History Smoking Status: Never Smoker Alcohol Use: none Housing Status: lives with family Occupation Status: retired Allergies Coded Allergies: No Known Allergies (Unverified , 06/21/16) Current Inpatient Medications Current Inpatient Medications Medications (Trade) Dose Ordered Sig/Dwight Route Start Time Stop Time Status Last Admin Dose Admin Oxycodone HCl (Roxicodone Immediate Rel Tab) 5 mg Q4H PRN PO 07/26/16 19:00 08/09/16 18:59 Oxycodone HCl (Oxycontin Tab) 10 mg Q12 PO 07/26/16 21:00 08/09/16 20:59 07/26/16 20:53 10 MG Ondansetron HCl 4 mg 4 mg Q4H PRN IV 07/26/16 19:00 08/25/16 18:59 Dextrose/Sodium Chloride (D5W And 1/2nss) 1,000 ml @ 75 mls/hr [id number] IV 07/26/16 19:00 08/25/16 18:59 07/26/16 20:49 75 MLS/HR Vancomycin HCl (Consult) 1 ea UD PRN N/A 07/26/16 19:00 08/25/16 18:59 Hydromorphone HCl (Dilaudid Inj) 1 mg Q3H PRN IV 07/26/16 22:00 08/09/16 21:59 UNV Allopurinol (Zyloprim Tab) 150 mg QAM PO 07/27/16 09:00 08/26/16 08:59 UNV Metoprolol Tartrate (Lopressor Tab) 12.5 mg BID PO 07/27/16 09:00 08/26/16 08:59 UNV Tamsulosin HCl (Flomax Cap) 0.4 mg DAILY PO 07/27/16 09:00 08/26/16 08:59 UNV Trazodone HCl (Desyrel Tab) 100 mg HS PO 07/27/16 21:00 08/26/16 20:59 UNV Non-Formulary Medication (Buspirone Hcl ) 10 mg HS PO 07/27/16 21:00 08/26/16 20:59 UNV Non-Formulary Medication (Prazosin Hcl (Prazosin)) 2 mg HS PO 07/27/16 21:00 08/26/16 20:59 UNV Review of Systems See above for pertinent positives & negatives. A total of 10 systems reviewed and were otherwise negative. Physical Exam Date Time Temp Pulse Resp B/P Pulse Ox O2 Delivery O2 Flow Rate FiO2 07/26/16 18:30 Room Air 07/26/16 18:30 36.8 79 16 103/56 Room Air 07/26/16 18:30 36.8 79 16 103/56 98 Room Air General- awake; alert; NAD Eyes- EOMI; no scleral icterus Neck- no stridor; trachea midline Lungs- CTA bilaterally anteriorly Heart- RRR; no m/r/g Abdomen- soft; NT; obese; nBS Extremities- RLE in immobilizer; 2+ edema of RLE; trace edema of LLE Neuro- no focal deficits Skin- erythema of RLE from foot to below the knee; ksenia c/d/i; minimal serous drainage from surgical sight . General Appearance: + pertinent finding (Pleasant WD/WN 71 year old male lying inbed in NAD with family at bedside ) Head: normocephalic, atraumatic Eyes: PERRL, EOMI, sclerae normal ENT: hearing grossly normal, pharynx normal Neck: supple, no JVD Respiratory/Chest: chest non-tender, lungs clear, normal breath sounds, no respiratory distress, no accessory muscle use Cardiovascular: regular rate, rhythm, no gallop, no JVD, no murmur, normal peripheral pulses Abdomen/GI: normal bowel sounds, non tender, soft Extremities/Musculoskelatal: + pertinent finding (Immobiler to right leg removed revealing, erythema to RLLE, with scattered blistering, RTKA incission without drainage or signs of infection, pulse intact, +1 pedal edema) Neurologic/Psych: alert, oriented x 3, + pertinent finding (no focal deficits on gross exam ) Skin: normal color Lymphatic: no adenopathy Laboratory Results Last 24 Hours Test 07/26/16 19:25 07/26/16 20:50 07/26/16 21:51 Creatinine 4.30 mg/dl 4.20 mg/dl Estimated GFR () 15.1 15.5 Estimated GFR (Non- 13.0 13.4 White Blood Count 7.72 K/uL Red Blood Count 2.76 M/uL Hemoglobin 8.5 g/dL Hematocrit 24.7 % Mean Corpuscular Volume 89.5 fL Mean Corpuscular Hemoglobin 30.8 pg Mean Corpuscular Hemoglobin Concent 34.4 g/dl Platelet Count 232 K/uL Mean Platelet Volume 8.3 fL Neutrophils (%) (Auto) 82.0 % Lymphocytes (%) (Auto) 10.1 % Monocytes (%) (Auto) 7.4 % Eosinophils (%) (Auto) 0.1 % Basophils (%) (Auto) 0.1 % Neutrophils # (Auto) 6.33 K/uL Lymphocytes # (Auto) 0.78 K/uL Monocytes # (Auto) 0.57 K/uL Eosinophils # (Auto) 0.01 K/uL Basophils # (Auto) 0.01 K/uL RDW Standard Deviation 49.7 fL RDW Coefficient of Variation 15.0 % Immature Granulocyte % (Auto) 0.3 % Immature Granulocyte # (Auto) 0.02 K/uL Red Blood Cell Morphology Unremarkable Sodium Level 144 mmol/L Potassium Level 4.9 mmol/L Chloride Level 113 mmol/L Carbon Dioxide Level 20 mmol/L Anion Gap 11.0 mmol/L Blood Urea Nitrogen 118 mg/dl Est Creatinine Clear Calc Drug Dose 20.1 ml/min BUN/Creatinine Ratio 28.1 Random Glucose 118 mg/dl Calcium Level 7.7 mg/dl Magnesium Level 2.6 mg/dl Total Bilirubin 0.4 mg/dl Direct Bilirubin 0.2 mg/dl Aspartate Amino Transf (AST/SGOT) 10 U/L Alanine Aminotransferase (ALT/SGPT) 10 U/L Alkaline Phosphatase 74 U/L Total Protein 5.3 gm/dl Albumin 2.3 gm/dl Assessment & Plan RIGHT FEMUR FRACTURE -transfer to tele for closer monitoring with significant comorbidities - ARF, acute DVT, cellulitis, anemia -Change morphine to Dilaudid for better renal clearance -obtain outpatient records - had preop clearance for surgery on 07/16 -additional management per ortho ACUTE RIGHT POPLITEAL DVT -per ortho can not have anticoagulation at this time -vascular surgery consulted for IVC filter -will monitor in tele ACUTE RENAL FAILURE -? cause, possibly multifactorial from recent surgery, NSAID use, poor po intake , infection, and other etiologies -4.3 today, was 1.8 9 days ago, obtain outpatient labs -gentle IVF hydration -hold NSAIDs, Diuretics -avoid other nephrotoxins as able -follow PRP HYPERKALEMIA -resolved, currently 4.9 -continue IVF hydration -repeat in AM HYPERMAGNESEMIA -repeat in AM RLE CELLULITIS -leukocytosis resolved, afebrile -blood cultures obtained at [facility] -continue Vancomycin, pharmacy consulted for dosing ANEMIA -hgb 8.5, possibly secondary to acute blood loss from recent TKA -no signs of active bleeding -check anemia profile -check blood type -cbc in AM HTN -soft BPs -monitor in tele -continue BB with parameters -hold HCTZ, Lisinopril for JOHN GOUT -continue allopurinol RECENT RTKA -management per ortho CODE STATUS: FULL CODE DISPO:per ortho Patient seen in collaboration with Dr. Del Rio Thank you for this consultation. We will follow the patient with you during their hospital stay. You can reach a member of the [facility] Hospitalist Team 29/11 via pager @ [phone]. I have seen, examined and discussed this patient with Pastora Das and I agree with the above note. Medicine consulted for medical comanagement. Vitals stable. See above for PE. Labs, imaging reviewed. JOHN: Likely multifactorial as outlined above. Hydration with IVF's. Check urinalysis. Hold HCTZ and lisinopril. Cellulitis: Blood cultures pending from [facility]. Agree with Vancomycin. Acute DVT: Anticoagulation contraindicated per Ortho. Vascular surgery consult for IVF filter. HTN: Continue metoprolol. Hold HCTZ and lisinopril as noted above. Anemia: Possibly from recent TKA. Check anemia labs. Agree with remainder of plan as outlined above.
[2016-07-26 22:20] VITALS: BP 103/56; PULSE 79; TEMP 36.8; O2SAT 98
[2016-07-26 22:30] VITALS: BP 113/55; PULSE 79; TEMP 36.8; O2SAT 97
[2016-07-26 23:59] VITALS: BP 115/48; PULSE 80; TEMP 36.6; O2SAT 96
[2016-07-27] VITALS (15 sets, daily range): BP systolic 100–155; BP diastolic 49–72; PULSE 65–96; TEMP 36.6–37.7; O2SAT 94–99
[2016-07-27 00:17] LABS: MANUAL MICROSCOPIC REQUIRED? NO; URINE APPEARANCE CLEAR (CLEAR); URINE BILIRUBIN NEG (NEG); URINE COLOR YELLOW; URINE NITRITE NEG (NEG); URINE SPECIFIC GRAVITY 1.025 (1.000-1.030); UROBILINOGEN NEG (NEG)
[2016-07-27 00:29] LABS: REVIEW REQ? NO
[2016-07-27 05:35] LABS: HEMATOCRIT 22.6 % (42-52); MEAN CORPUSCULAR HEMOGLOBIN 30.3 pg (25-34); MEAN CORPUSCULAR HGB CONC 33.6 g/dl (32-36); MEAN PLATELET VOLUME 8.4 fL (7.4-10.4); PLATELET COUNT 227 K/uL (130-400); RED BLOOD COUNT 2.51 M/uL (4.7-6.1); WHITE BLOOD COUNT 6.44 K/uL (4.8-10.8)
[2016-07-27 06:12] LABS: BUN/CREATININE RATIO 29.7 (10-20); CALCIUM 7.7 mg/dl (8.5-10.1); CREATININE 3.7 mg/dl (0.60-1.40); MAGNESIUM 2.9 mg/dl (1.8-2.4); POTASSIUM 4.6 mmol/L (3.5-5.1)
[2016-07-27 06:19] LABS: ESTIMATED AVERAGE GLUCOSE 117 mg/dl; HA1C FLAG Normal (Normal)
[2016-07-27] MEDS: HYDROmorphone INJ 1 MG/ML SYR IV PRN ×4 (06:33→17:18)
--- NOTE | 2016-07-27 06:52 | Surgery Consultation ---
Consultation Date of Service Jul 27, 2016. Chief Complaint Acute DVT right leg with femur fracture History of Present Illness The patient is a 71 year old male who was recovering from a total knee replacement when he feel and fractured his femur. He was found to have an acute DVT of his right popliteal vein and can not be anticoagulated. Consulted for filter placement Vitals Vital Signs Past 12 Hours Date Time Temp Pulse Resp B/P Pulse Ox O2 Delivery O2 Flow Rate FiO2 07/27/16 04:00 Room Air 07/27/16 04:00 37.4 80 15 113/49 95 Room Air 07/26/16 23:59 36.6 80 20 115/48 96 Room Air 07/26/16 23:59 Room Air 07/26/16 22:30 36.8 79 22 113/55 97 Room Air 07/26/16 22:20 36.8 79 16 98 Allergies Coded Allergies: No Known Allergies (Unverified , 06/21/16) Home Medications Scheduled Acetaminophen (Tylenol Extra Strength), 1,000 MG PO Q8H Allopurinol (Zyloprim), 150 MG PO QAM Aspirin (Aspirin EC Low Dose), 81 MG PO BID Aspirin Effervescent ([place]), 1 TAB PO PRN Buspirone Hcl (Buspirone Hcl), 10 MG PO HS Celecoxib (Celebrex), 200 MG PO BID Hydrochlorothiazide (Hctz), 25 MG PO QAM Lisinopril (Zestril), 20 MG PO QAM Metoprolol Tartrate (Lopressor) (Lopressor), 12.5 MG PO BID Multivitamins/Minerals (Mvi With Minerals), 1 TAB PO QAM Oxycodone HCl (Oxycontin), 10 MG PO Q12 Prazosin Hcl (Prazosin), 2 MG PO HS Tamsulosin Hcl (Flomax), 1 CAP PO DAILY Trazodone Hcl (Trazodone), 100 MG PO HS [Nystatin Powder], 1 DOSE TOP PRN Scheduled PRN Ondansetron Hcl (Zofran), 8 MG PO Q8 PRN for Nausea Oxycodone HCl (Oxycodone HCl), 5-10 MG PO Q4H PRN for Pain Oxycodone Ir (Roxicodone Ir), 5 MG PO Q6H PRN for Pain Problem List Medical Problems: (1) GERD (gastroesophageal reflux disease) (2) Gout (3) HTN (hypertension) (4) Right knee DJD Surgical Problems: (1) History of tonsillectomy (2) History of total knee arthroplasty Surgical / Medical History Hx Cardiac Surgery: No Hx Abdominal Surgery: No Hx Cancer Surgery: No Hx Thoracic Surgery: No Hx Orthopedic: Yes (left knee 1964 right knee July 2016) Hx Urinary Tract Surgery: No HX Other Surgery: Yes Past Medical/Surgical History: Hypertension, Reflux Social History Smoking Status: Never Smoker Hx Tobacco Use In Past Year?: No Hx Alcohol Use - Type & Amnt: No Hx Substance Use -Type & Amnt: No Review of Systems Constitutional: No chills, No diaphoresis, No fatigue, No fever, No malaise, No problem reported, No sweats, No weakness, No weight gain, No weight loss Respiratory: No OWEN, No PND, No cough, No cyanosis, No dyspnea, No hemoptysis, No orthopnea, No problem reported, No short of breath, No sputum production, No stridor, No wheezing Cardiovascular: No chest pain, No chest pressure, No chest tightness, No cyanosis, No diaphoresis, No edema, No intermittent claudication, No lightheadedness, No mumur, No orthopnea, No palpitations, No paroxysmal nocturnal dyspnea, No problem reported, No syncope Gastrointestinal: No abdominal pain, No anorexia, No appetite changes, No belching, No constipation, No diarrhea, No dysphagia, No flatulence, No food intolerance, No heartburn, No hematemesis, No hematochezia, No hemorrhoids, No indigestion, No nausea, No problem reported, No rectal bleeding, No stool changes, No vomiting Genitourinary - Male: No difficulty urinating, No hematuria, No impotence, No penile discharge, No penile itching, No problem reported, No rash, No testicular pain, No testicular swelling Musculoskeletal: + joint pain, No back pain, No gout, No joint swelling, No muscle pain, No muscle stiffness, No muscle weakness, No neck pain, No problem reported Neurologic: No LOC, No dizziness, No headache, No lethargy, No memory loss, No numbness, No paresthesia, No pre-existing deficit, No problem reported, No seizures, No tics, No tingling, No tremors, No vertigo, No weakness Psychiatric: No alcohol abuse, No anxiety, No auditory hallucinations, No depression, No drug abuse, No homicidal ideation, No mood changes, No problem reported, No suicidal ideation, No visual hallucinations Physical Exam Constitutional: General Apperance: heathly-appearing, well-nourished, well-developed Level of Distress: mild distress Ambulation: limited ambulation Psychiatric: Mental Status: active & alert, normal mood, normal affect Orientation: oriented except where noted, to time, to place, to person Memory: recent memory normal, remote memory normal ENMT: normal ENT inspection Neck: supple Lungs: Auscultation: breath sounds normal Cardiovascular: Heart Auscultation: RRR Peripheral Pulses: Radial Pulse: normal on the left, normal on the right Femoral Pulse: normal on the left, normal on the right Abdomen: Inspection & Palpation: soft Musculoskeletal: pertinent finding (fracture femur) Extremities: Upper Right: no cyanosis, no edema, no varicosities, no palpable cord, no clubbing, no ulcers, no mottling Upper Left: no cyanosis, no edema, no palpable cord, no clubbing, no ulcers , no mottling Lower Right: pertinent finding (fracture femur, recent total knee) Lower Left: no cyanosis, no edema, no varicosities, no palpable cord, no clubbing, no ulcers, no mottling Neurologic: Cranial Nerves: grossly intact Sensation: grossly intact Assessment and Plan Imp: Acute DVT Fracture right femur Plan: Would place IVC filter being the patient can not be anticoagulated due to his fracture and planned surgery today. We will place a removable filter and remove it in about 3 to 4 months from now. I have discussed the risks options and benefits of the procedure with the patient. The patient understands the risks options and benefits and agrees to the procedure. This will be done this am. Thank you very much for letting me participate in the care of this patient.
[2016-07-27] MEDS ORDERED: MIDAZOLAM HCL 1 MG/ML 2ML VIAL ONE (07:20)
[2016-07-27] MEDS ORDERED: FENTANYL CITRATE INJ 50 MCG/1 ML 2 ML VIAL ONE (07:20)
--- NOTE | 2016-07-27 07:28 | Procedure Note ---
Pre-Mod Sedation Assessment General Date of Moderate Sedation: Jul 27, 2016. Vital Signs: Vital Signs Past 12 Hours Date Time Temp Pulse Resp B/P Pulse Ox O2 Delivery O2 Flow Rate FiO2 07/27/16 07:08 37.1 79 16 106/51 97 07/27/16 04:00 Room Air 07/27/16 04:00 37.4 80 15 113/49 95 Room Air 07/26/16 23:59 36.6 80 20 115/48 96 Room Air 07/26/16 23:59 Room Air 07/26/16 22:30 36.8 79 22 113/55 97 Room Air 07/26/16 22:20 36.8 79 16 98 Pre-Sedation Airway Assessment Oral Cavity: Dentures Smoking Status: Never Smoker Mallampati Classification: Class I ASA Classification: Class II Notes The planned sedation has been discussed with the patient and consent obtained. I have identified the patient, determined the appropriateness of sedation and have assessed the patient immediately prior to the procedure. All medicine(s) and interventions are by my order.
[2016-07-27] MEDS ORDERED: FENTANYL CITRATE INJ 50 MCG/1 ML 2 ML VIAL IV ONE (07:48)
[2016-07-27] MEDS ORDERED: LIDOCAINE HCL 1% 20 ML VIAL INFIL ONE (08:00)
[2016-07-27] MEDS ORDERED: IODIXANOL (VISIPAQUE) 270 MG/ML 50ML IV ONE (08:00)
--- NOTE | 2016-07-27 08:10 | [facility] Post Operative Brief Note ---
Immediate Operative Summary Operative Date Jul 27, 2016. Pre-Operative Diagnosis Acute DVT Fracture right femur Post-Operative Diagnosis Same Procedure(s) Performed Insertion of Vena Cava Filter, Right Jugular Approach Ultrasound Localiation of Righ Internal Jugular Vein Insertion of Central Venous Catheter Fluoroscopy for Postioning Surgeon Edith Airways Control Specialist Surgeon(s) Frankie Estimated Blood Loss 3 Findings filter upright in IVC, no cava clot Specimens None Anesthesia Local Complication(s) None Disposition
--- NOTE | 2016-07-27 08:38 | DIAGNOSTIC IMAGING REPORT ---
DATE OF PROCEDURE: 07/27/2016 PREOPERATIVE DIAGNOSES: 1. Lower extremity deep vein thrombosis. 2. Need for intravenous access. POSTOPERATIVE DIAGNOSES: Same. PROCEDURE: 1. Ultrasound-guided right internal jugular access and placement of Cook Celect inferior vena cava filter. 2. Placement of right internal jugular triple lumen catheter. SURGEON: Dr. Harry Sharma. BURLAPPER: Dr. Ulises David. ANESTHESIA: Local plus fentanyl. COMPLICATIONS: None. ESTIMATED BLOOD LOSS: 3 mL INDICATIONS: This is a 71-year-old man with lower extremity DVT. Despite anticoagulation, his DVT has progressed. He is also receiving IV antibiotics for cellulitis. Filter was indicated for prevention of pulmonary embolism. Long-term venous access also needed to be established. The patient consented to the above procedure. He understood the risks, benefits, and alternatives, and agreed to proceed. PROCEDURE IN DETAIL: The patient was brought to the endovascular suite. The right neck was prepped and draped in the normal sterile fashion. Timeout was performed and all parties agreed to correct patient and procedure to be performed. The patient was currently on scheduled antibiotics including vancomycin. At the time of the procedure, he was also receiving a unit of blood. Under ultrasound guidance, the right internal jugular vein was accessed on the first attempt. A wire was threaded down to the level of the iliac bifurcation. The 5-Italian sheath was advanced over the wire under fluoroscopic guidance. It was placed at the level of the L4 vertebrae. Venogram performed at this point located the level of the renal veins. The filter was brought onto the field. It was deployed below the level of the renal veins. It was deployed without incident and appeared to be mostly upright. At this point, the wire was reinserted. The sheath was removed. A triple lumen catheter was brought onto the field. It was advanced over the wire into the right internal jugular vein under fluoroscopic guidance. The tip of the catheter was located at the level of the cavoatrial junction. At this point, the procedure was completed. All wires were removed. The 3 ports of the catheter were flushed with heparinized saline. It was sutured in place. The patient was awakened and transferred to the recovery room in satisfactory condition. [facility]PITALNayely
[2016-07-27] MEDS: D5W AND 1/2NSS 1,000 ML IV SCH ×2 (08:43→22:03)
[2016-07-27] MEDS: METOPROLOL TARTRATE 25 MG TAB PO SCH (08:46)
[2016-07-27] MEDS: OXYCODONE HCL 10 MG TABCR (OXYCONTIN) PO SCH (08:48)
[2016-07-27] MEDS ORDERED: ALLOPURINOL 100 MG TAB PO SCH (09:00)
[2016-07-27] MEDS ORDERED: TAMSULOSIN HCL 0.4 MG CAP PO SCH (09:00)
--- NOTE | 2016-07-27 09:41 | Progress Note ---
Internal Med Progress Note Date of Service: Jul 27, 2016. Provider Documentation: SUBJECTIVE: The patient was seen and examined Complains of some pain in right leg Denies any Chest pain,palpitation,SOB OBJECTIVE: Vital Signs-as noted below Exam: General-no distress at rest Eyes-normal ENT-normal Neck-supple Lungs-Decreased breath sound bilaterally Heart-Regular,no murmur appreciated Abdomen-Benign,no masses,bowel sound present Extremities-Bilateral leg swelling Right more than the left Right leg redness with increased local temperature A few blisters at the distal end of the foot Neuro-AAOx3 Lab data as noted below. ASSESSMENT & PLAN: RIGHT FEMUR FRACTURE S/P Fall ,likely mechanical -significant comorbidities - ARF, acute DVT, cellulitis, anemia -obtain outpatient records - had preop clearance for surgery on 07/16 -Management as per Ortho -Likely surgery today ACUTE RIGHT POPLITEAL DVT -per ortho can not have anticoagulation at this time due to acute fracture and anticipated surgery -vascular surgery consulted for IVC filter -s/p IVC filter placement 07/27/16 ACUTE RENAL FAILURE on Chronic Renal Impairment -possibly multifactorial from recent surgery, NSAID use, poor po intake, infection, and other etiologies -Creatinine 4.3 on admission was 1.8 on 07/17 -gentle IVF hydration due to Edema of the legs -hold NSAIDs, Diuretics -avoid other nephrotoxins as able -Creatinine is improving RLE CELLULITIS with Blisters on foot -leukocytosis resolved, afebrile -blood cultures obtained at [place] [facility] -continue Vancomycin, pharmacy consulted for dosing HYPERKALEMIA -resolved, currently 4.9 -continue IVF hydration -repeat in AM -3.6 on 07/27/16 HYPERMAGNESEMIA Remains elevated Acute Blood Loss ANEMIA -hgb 8.5, possibly secondary to acute blood loss from recent TKA -no signs of active bleeding -check anemia profile -has low Iron -Hb dropped <8.0 -getting 1 Unit of PRBC HTN -soft BPs -continue BB with parameters -hold HCTZ, Lisinopril for JOHN GOUT -continue allopurinol RECENT RTKA -management per ortho CODE STATUS: FULL CODE DISPO:per ortho Vital Signs: Date Time Temp Pulse Resp B/P Pulse Ox O2 Delivery O2 Flow Rate FiO2 07/27/16 07:32 36.8 84 16 105/60 98 07/27/16 07:24 37.0 82 16 114/56 98 Room Air 07/27/16 07:20 37.0 82 14 114/56 98 07/27/16 07:08 37.1 79 16 106/51 97 07/27/16 04:00 Room Air 07/27/16 04:00 37.4 80 15 113/49 95 Room Air 07/26/16 23:59 36.6 80 20 115/48 96 Room Air 07/26/16 23:59 Room Air 07/26/16 22:30 36.8 79 22 113/55 97 Room Air 07/26/16 22:20 36.8 79 16 98 07/26/16 18:30 Room Air 07/26/16 18:30 36.8 79 16 103/56 Room Air 07/26/16 18:30 36.8 79 16 103/56 98 Room Air Lab Results: Results Past 24 Hours Test 07/26/16 19:25 07/26/16 20:50 07/26/16 21:51 07/26/16 22:51 Range/Units Creatinine 4.30 4.20 0.60-1.40 mg/dl Estimated GFR () 15.1 15.5 Estimated GFR (Non- 13.0 13.4 White Blood Count 7.72 4.8-10.8 K/uL Red Blood Count 2.76 4.7-6.1 M/uL Hemoglobin 8.5 14.0-18.0 g/dL Hematocrit 24.7 42-52 % Mean Corpuscular Volume 89.5 80-100 fL Mean Corpuscular Hemoglobin 30.8 25-34 pg Mean Corpuscular Hemoglobin Concent 34.4 32-36 g/dl Platelet Count 232 130-400 K/uL Mean Platelet Volume 8.3 7.4-10.4 fL Neutrophils (%) (Auto) 82.0 % Lymphocytes (%) (Auto) 10.1 % Monocytes (%) (Auto) 7.4 % Eosinophils (%) (Auto) 0.1 % Basophils (%) (Auto) 0.1 % Neutrophils # (Auto) 6.33 1.4-6.5 K/uL Lymphocytes # (Auto) 0.78 1.2-3.4 K/uL Monocytes # (Auto) 0.57 0.11-0.59 K/uL Eosinophils # (Auto) 0.01 0-0.5 K/uL Basophils # (Auto) 0.01 0-0.2 K/uL RDW Standard Deviation 49.7 36.4-46.3 fL RDW Coefficient of Variation 15.0 11.5-14.5 % Immature Granulocyte % (Auto) 0.3 % Immature Granulocyte # (Auto) 0.02 0.00-0.02 K/uL Red Blood Cell Morphology Unremarkable Sodium Level 144 136-145 mmol/L Potassium Level 4.9 3.5-5.1 mmol/L Chloride Level 113 98-107 mmol/L Carbon Dioxide Level 20 21-32 mmol/L Anion Gap 11.0 3-11 mmol/L Blood Urea Nitrogen 118 7-18 mg/dl Est Creatinine Clear Calc Drug Dose 20.1 ml/min BUN/Creatinine Ratio 28.1 10-20 Random Glucose 118 70-99 mg/dl Estimated Average Glucose 117 mg/dl Hemoglobin A1c 5.7 4.5-5.6 % Calcium Level 7.7 8.5-10.1 mg/dl Magnesium Level 2.6 1.8-2.4 mg/dl Iron Level 21 35-175 mcg/dl Total Iron Binding Capacity 156 250-450 mcg/dl Transferrin 128 200-360 mg/dl Transferrin % Saturation 12 20-50 % Ferritin 228.0 8.0-388.0 ng/ml Total Bilirubin 0.4 0.2-1 mg/dl Direct Bilirubin 0.2 0-0.2 mg/dl Aspartate Amino Transf (AST/SGOT) 10 15-37 U/L Alanine Aminotransferase (ALT/SGPT) 10 12-78 U/L Alkaline Phosphatase 74 45-117 U/L Total Protein 5.3 6.4-8.2 gm/dl Albumin 2.3 3.4-5.0 gm/dl Acetaminophen Level 5 10-30 ug/ml Absolute Reticulocyte Count 0.02 0.02-0.10 10^6/uL Percent Reticulocyte Count 0.9 0.5-2.0 % Vitamin B12 Level 365 211-911 pg/mL Folate 9.96 >5.38 ng/mL Test 07/26/16 23:45 07/27/16 05:26 Range/Units Urine Color YELLOW Urine Appearance CLEAR CLEAR Urine pH 5.0 4.5-7.5 Urine Specific [place] 1.025 1.000-1.030 Urine Protein NEG NEG Urine Glucose (UA) NEG NEG Urine Ketones NEG NEG Urine Occult Blood NEG NEG Urine Nitrite NEG NEG Urine Bilirubin NEG NEG Urine Urobilinogen NEG NEG Urine Leukocyte Esterase NEG NEG White Blood Count 6.44 4.8-10.8 K/uL Red Blood Count 2.51 4.7-6.1 M/uL Hemoglobin 7.6 14.0-18.0 g/dL Hematocrit 22.6 42-52 % Mean Corpuscular Volume 90.0 80-100 fL Mean Corpuscular Hemoglobin 30.3 25-34 pg Mean Corpuscular Hemoglobin Concent 33.6 32-36 g/dl RDW Standard Deviation 49.5 36.4-46.3 fL RDW Coefficient of Variation 15.0 11.5-14.5 % Platelet Count 227 130-400 K/uL Mean Platelet Volume 8.4 7.4-10.4 fL Sodium Level 145 136-145 mmol/L Potassium Level 4.6 3.5-5.1 mmol/L Chloride Level 114 98-107 mmol/L Carbon Dioxide Level 22 21-32 mmol/L Anion Gap 9.0 3-11 mmol/L Blood Urea Nitrogen 110 7-18 mg/dl Creatinine 3.70 0.60-1.40 mg/dl Est Creatinine Clear Calc Drug Dose 22.8 ml/min Estimated GFR () 18.1 Estimated GFR (Non- 15.6 BUN/Creatinine Ratio 29.7 10-20 Random Glucose 98 70-99 mg/dl Calcium Level 7.7 8.5-10.1 mg/dl Magnesium Level 2.9 1.8-2.4 mg/dl Random Vancomycin Level 23.6 mcg/ml Microbiology Results 07/26/16 MRSA DNA Surveillance Screen - Final, Complete Specimen Negative for MRSA by DNA Probe
[2016-07-27 12:13] LABS: HEMATOCRIT 24.4 % (42-52)
[2016-07-27] MEDS ORDERED: VANCOMYCIN INJ 1,000 MG in SODIUM CHLORIDE 0.9% 250ML 250 ML IV ONE (14:00)
--- NOTE | 2016-07-27 14:01 | Pharmacy Progress Note ---
Pharmacy Progress Note Date of Service Jul 27, 2016. Progress Note VANCOMYCIN: Pharmacy is consulted to initiate vancomycin IV dosing therapy, order appropriate labs and adjust drug dose/frequency. Patient was given a vancomycin loading dose last night, with a f/u random level this morning. Renal function is beginning to improve, but level was still slightly too high to redose this morning. Item Value Date Time Random Vancomycin Level 23.6 mcg/ml 07/27/16 0526 Will give small supplemental dose of Vancomycin 1000mg x1 this afternoon and re- check random level with AM labs tomorrow. Will re-dose when level falls within therapeutic range. Once renal function is stable and nearing baseline, will work towards placing patient on normal maintenance dosing. Thank you for engaging the clinical pharmacy consult service in the care of this patient. Please let us know if we can be of further assistance.
--- NOTE | 2016-07-27 14:43 | Orthopedic Progress Note ---
Orthopedic Progress Note Date of Service Jul 27, 2016. Subjective Additional Notes: Pt seen today and essentially no complaints at the time of the visit. He was sleeping on arrival and I spoke with his daughter about the plans for surgery. Pt awoke and was in good spirits but disappointed about his accident. States that he is ready to have the surgery done. Pt underwent IVC Filter placement this AM with Dr Sharma. Pain control seems to be adequate. Objective N/V intact, A&O x3, toes mobile Pt with Knee Immobilizer on the RLE which is left in place. Right foot swollen with mild erythema noted. Small blisters noted near the toes from swelling. Date Time Temp Pulse Resp B/P Pulse Ox O2 Delivery O2 Flow Rate FiO2 07/27/16 13:00 36.8 80 14 111/62 94 07/27/16 12:42 36.8 65 16 100/54 97 07/27/16 12:00 Room Air 07/27/16 09:30 88 14 117/70 97 07/27/16 08:30 37.0 83 16 106/59 95 07/27/16 08:00 Room Air 07/27/16 07:32 36.8 84 16 105/60 98 07/27/16 07:24 37.0 82 16 114/56 98 Room Air 07/27/16 07:20 37.0 82 14 114/56 98 07/27/16 07:08 37.1 79 16 106/51 97 07/27/16 04:00 Room Air 07/27/16 04:00 37.4 80 15 113/49 95 Room Air 07/26/16 23:59 36.6 80 20 115/48 96 Room Air 07/26/16 23:59 Room Air 07/26/16 22:30 36.8 79 22 113/55 97 Room Air 07/26/16 22:20 36.8 79 16 98 07/26/16 18:30 Room Air 07/26/16 18:30 36.8 79 16 103/56 Room Air 07/26/16 18:30 36.8 79 16 103/56 98 Room Air Laboratory Results 24 Hours: Test 07/26/16 20:50 07/27/16 05:26 07/27/16 11:54 White Blood Count 7.72 K/uL Red Blood Count 2.76 M/uL Hemoglobin 8.5 g/dL 7.6 g/dL 8.2 g/dL Hematocrit 24.7 % 22.6 % 24.4 % Mean Corpuscular Volume 89.5 fL Mean Corpuscular Hemoglobin 30.8 pg Mean Corpuscular Hemoglobin Concent 34.4 g/dl Platelet Count 232 K/uL Mean Platelet Volume 8.3 fL Neutrophils (%) (Auto) 82.0 % Lymphocytes (%) (Auto) 10.1 % Monocytes (%) (Auto) 7.4 % Eosinophils (%) (Auto) 0.1 % Basophils (%) (Auto) 0.1 % Neutrophils # (Auto) 6.33 K/uL Lymphocytes # (Auto) 0.78 K/uL Monocytes # (Auto) 0.57 K/uL Eosinophils # (Auto) 0.01 K/uL Basophils # (Auto) 0.01 K/uL Assessment & Plan Assessment: Distal Right Femur Fracture s/p R TKA ACUTE RIGHT POPLITEAL DVT - IVC filter placed ACUTE RENAL FAILURE on Chronic Renal Impairment RLE CELLULITIS with Blisters on foot HYPERKALEMIA - resolved HYPERMAGNESEMIA Acute Blood Loss ANEMIA - being transfused HTN GOUT Plan: Surgery held today (multifactorial) As per Medicine Service / Anesthesia Service Plan for ORIF vs IM Retrograde Nailing of above noted fx when cleared by the above services Inhouse Planning Pain Management: Oxycontin, Dilaudid, Oxy IR DVT Prophylaxis: TEDs, SCDs, other (IVC filter)
--- NOTE | 2016-07-27 16:55 | Orthopedic Progress Note ---
Orthopedic Progress Note Date of Service Jul 27, 2016. Objective Date Time Temp Pulse Resp B/P Pulse Ox O2 Delivery O2 Flow Rate FiO2 07/27/16 16:00 Room Air 07/27/16 16:00 36.9 96 16 119/68 95 Room Air 07/27/16 13:00 36.8 80 14 111/62 94 07/27/16 12:42 36.8 65 16 100/54 97 07/27/16 12:00 Room Air 07/27/16 09:30 88 14 117/70 97 07/27/16 08:30 37.0 83 16 106/59 95 07/27/16 08:00 Room Air 07/27/16 07:32 36.8 84 16 105/60 98 07/27/16 07:24 37.0 82 16 114/56 98 Room Air 07/27/16 07:20 37.0 82 14 114/56 98 07/27/16 07:08 37.1 79 16 106/51 97 07/27/16 04:00 Room Air 07/27/16 04:00 37.4 80 15 113/49 95 Room Air 07/26/16 23:59 36.6 80 20 115/48 96 Room Air 07/26/16 23:59 Room Air 07/26/16 22:30 36.8 79 22 113/55 97 Room Air 07/26/16 22:20 36.8 79 16 98 07/26/16 18:30 Room Air 07/26/16 18:30 36.8 79 16 103/56 Room Air 07/26/16 18:30 36.8 79 16 103/56 98 Room Air Laboratory Results 24 Hours: Test 07/26/16 20:50 07/27/16 05:26 07/27/16 11:54 White Blood Count 7.72 K/uL Red Blood Count 2.76 M/uL Hemoglobin 8.5 g/dL 7.6 g/dL 8.2 g/dL Hematocrit 24.7 % 22.6 % 24.4 % Mean Corpuscular Volume 89.5 fL Mean Corpuscular Hemoglobin 30.8 pg Mean Corpuscular Hemoglobin Concent 34.4 g/dl Platelet Count 232 K/uL Mean Platelet Volume 8.3 fL Neutrophils (%) (Auto) 82.0 % Lymphocytes (%) (Auto) 10.1 % Monocytes (%) (Auto) 7.4 % Eosinophils (%) (Auto) 0.1 % Basophils (%) (Auto) 0.1 % Neutrophils # (Auto) 6.33 K/uL Lymphocytes # (Auto) 0.78 K/uL Monocytes # (Auto) 0.57 K/uL Eosinophils # (Auto) 0.01 K/uL Basophils # (Auto) 0.01 K/uL Assessment & Plan Assessment: Distal Right Femur Fracture s/p R TKA ACUTE RIGHT POPLITEAL DVT - IVC filter placed ACUTE RENAL FAILURE on Chronic Renal Impairment RLE CELLULITIS with Blisters on foot HYPERKALEMIA - resolved HYPERMAGNESEMIA Acute Blood Loss ANEMIA - being transfused HTN GOUT Plan: Surgery held today (multifactorial) As per Medicine Service / Anesthesia Service Plan for IM Retrograde Nailing when cleared, planning for as of now. Will allow time for renal function to improve, stabilize Hgb and allow cellulitis to improve prior to surgery through TKA Inhouse Planning Pain Management: Oxycontin, Dilaudid, Oxy IR DVT Prophylaxis: TEDs, SCDs, other (IVC filter)
[2016-07-27] MEDS: ONDANSETRON INJ 2 MG/ML 2 ML VIAL IV PRN ×2 (20:00→23:34)
[2016-07-27] MEDS ORDERED: TRAZODONE HCL 100 MG TAB PO SCH (21:00)
[2016-07-27] MEDS ORDERED: PRAZOSIN HCL 1 MG CAP PO SCH (21:00)
[2016-07-27 22:38] LABS: BASO % 0.1 %; BASO ABS # 0.01 K/uL (0-0.2); COMPLETE YES; EOS % 0.3 %; HEMATOCRIT 28.2 % (42-52); IG% 0.6 %; LYMPH % 8.4 %; LYMPH ABS # 0.61 K/uL (1.2-3.4); MEAN CELL VOLUME 89.2 fL (80-100); MEAN CORPUSCULAR HEMOGLOBIN 30.1 pg (25-34); MEAN CORPUSCULAR HGB CONC 33.7 g/dl (32-36); MEAN PLATELET VOLUME 8.5 fL (7.4-10.4); MONO % 7.4 %; NEUT % 83.2 %; PLATELET COUNT 225 K/uL (130-400); RED BLOOD COUNT 3.16 M/uL (4.7-6.1); WHITE BLOOD COUNT 7.25 K/uL (4.8-10.8)
[2016-07-27 23:02] LABS: BUN/CREATININE RATIO 33.9 (10-20); CALCIUM 8.3 mg/dl (8.5-10.1); CREATININE 2.7 mg/dl (0.60-1.40); MAGNESIUM 2.5 mg/dl (1.8-2.4); POTASSIUM 4.5 mmol/L (3.5-5.1)
--- NOTE | 2016-07-27 23:02 | DIAGNOSTIC IMAGING REPORT ---
KUB HISTORY: Nausea. Vomiting. COMPARISON: None. FINDINGS: Moderately distended gas-filled stomach. An IVC filter is noted. No dilated loops of large or small bowel. No renal calculi. No ureteral calculi. No pneumoperitoneum or pneumatosis. IMPRESSION: Moderately distended gas-filled stomach. No dilated loops of large or small bowel. Electronically signed by: Kevin Lane M.D. 07/27/2016 11:01 PM Dictated Date/Time: 07/27/2016 10:59 PM
[2016-07-27 23:07] LABS: ALB/GLOB RATIO 0.7 (0.9-2)
[2016-07-28] VITALS (7 sets, daily range): BP systolic 108–138; BP diastolic 53–85; PULSE 67–78; TEMP 36.6–38.5; O2SAT 92–97
[2016-07-28] MEDS ORDERED: PANTOprazole INJ 80 MG in DEXTROSE 5% 100ML IV STA (01:21)
[2016-07-28] MEDS ORDERED: LORAZEPAM INJ 0.5 MG in SYRINGE 0.25 ML IV PRN (01:30)
[2016-07-28] MEDS ORDERED: LORAZEPAM 2 MG/ML 1 ML VIAL IV PRN (01:30)
--- NOTE | 2016-07-28 01:52 | Progress Note ---
Progress Note Date of Service Jul 28, 2016. Progress Note Patient seen ~ 01:00 Developed nausea and vomiting this evening. Experiencing some abdominal discomfort. No bowel movement since surgery. Zofran not effective. Received 2 units pRBC's earlier in the day for Hgb of 7.6. Exam: General- appears to be uncomfortable Abd- moderately distended, quiet bowel sounds, soft, no rebound or guarding Emesis- watery with probable coffee-grounds Data: Last 24 Hours Test 07/27/16 05:26 07/27/16 11:54 07/27/16 20:52 07/27/16 22:01 White Blood Count 6.44 K/uL 7.25 K/uL Red Blood Count 2.51 M/uL 3.16 M/uL Hemoglobin 7.6 g/dL 8.2 g/dL 9.5 g/dL Hematocrit 22.6 % 24.4 % 28.2 % Mean Corpuscular Volume 90.0 fL 89.2 fL Mean Corpuscular Hemoglobin 30.3 pg 30.1 pg Mean Corpuscular Hemoglobin Concent 33.6 g/dl 33.7 g/dl RDW Standard Deviation 49.5 fL 48.6 fL RDW Coefficient of Variation 15.0 % 14.7 % Platelet Count 227 K/uL 225 K/uL Mean Platelet Volume 8.4 fL 8.5 fL Sodium Level 145 mmol/L 145 mmol/L Potassium Level 4.6 mmol/L 4.5 mmol/L Chloride Level 114 mmol/L 114 mmol/L Carbon Dioxide Level 22 mmol/L 23 mmol/L Anion Gap 9.0 mmol/L 8.0 mmol/L Blood Urea Nitrogen 110 mg/dl 92 mg/dl Creatinine 3.70 mg/dl 2.70 mg/dl Est Creatinine Clear Calc Drug Dose 22.8 ml/min 32.9 ml/min Estimated GFR () 18.1 26.5 Estimated GFR (Non- 15.6 22.8 BUN/Creatinine Ratio 29.7 33.9 Random Glucose 98 mg/dl 118 mg/dl Calcium Level 7.7 mg/dl 8.3 mg/dl Magnesium Level 2.9 mg/dl 2.5 mg/dl Random Vancomycin Level 23.6 mcg/ml Bedside Glucose 109 mg/dl Neutrophils (%) (Auto) 83.2 % Lymphocytes (%) (Auto) 8.4 % Monocytes (%) (Auto) 7.4 % Eosinophils (%) (Auto) 0.3 % Basophils (%) (Auto) 0.1 % Neutrophils # (Auto) 6.03 K/uL Lymphocytes # (Auto) 0.61 K/uL Monocytes # (Auto) 0.54 K/uL Eosinophils # (Auto) 0.02 K/uL Basophils # (Auto) 0.01 K/uL Immature Granulocyte % (Auto) 0.6 % Immature Granulocyte # (Auto) 0.04 K/uL Total Bilirubin 0.7 mg/dl Aspartate Amino Transf (AST/SGOT) 13 U/L Alanine Aminotransferase (ALT/SGPT) 12 U/L Alkaline Phosphatase 76 U/L Total Protein 5.7 gm/dl Albumin 2.4 gm/dl Globulin 3.3 gm/dl Albumin/Globulin Ratio 0.7 Amylase Level 19 U/L Lipase 58 U/L KUB- moderate gaseous distention of stomach EKG @ 21:56: baseline artifact, probable sinus rhythm with PAC's vs sinus arrhythmia no apparent ST or T-wave changes A/P: Postoperative nausea / vomiting, etiology uncertain. Moderate gastric distention. Apparent UGI bleed. Ondansetron not effective. Patient a bit confused earlier this evening, so best to avoid anticholinergic meds like promethazine. Try lorazepam for nausea. NGT--> low intermittent suction. IV pantoprazole. Consult GI. Hold PO meds; change metoprolol to IV until able to resume oral meds. .
[2016-07-28] MEDS: D5W AND 1/2NSS 1,000 ML IV SCH ×2 (02:09→16:04)
[2016-07-28] MEDS ORDERED: LORAZEPAM 2 MG/ML 1 ML VIAL IV STA (02:18)
[2016-07-28] MEDS: PANTOprazole INJ 40 MG in DEXTROSE 5% 100ML IV SCH ×4 (02:21→21:03)
[2016-07-28] MEDS ORDERED: LORAZEPAM INJ 0.5 MG in SYRINGE 0.25 ML IV ONE (02:30)
[2016-07-28 06:04] LABS: HEMATOCRIT 28.2 % (42-52); MEAN CORPUSCULAR HGB CONC 33.7 g/dl (32-36); MEAN PLATELET VOLUME 8.3 fL (7.4-10.4); PLATELET COUNT 217 K/uL (130-400); RED BLOOD COUNT 3.17 M/uL (4.7-6.1); WHITE BLOOD COUNT 8.79 K/uL (4.8-10.8)
[2016-07-28 06:35] LABS: BUN/CREATININE RATIO 29.5 (10-20); CALCIUM 8.1 mg/dl (8.5-10.1); CREATININE 2.5 mg/dl (0.60-1.40); MAGNESIUM 2.5 mg/dl (1.8-2.4); PHOSPHORUS 3.1 mg/dl (2.5-4.9); POTASSIUM 4.1 mmol/L (3.5-5.1)
--- NOTE | 2016-07-28 06:56 | Orthopedic Progress Note ---
Orthopedic Progress Note Date of Service Jul 28, 2016. Subjective Additional Notes: Patient was seen bedside. He was sleeping at time of examination. NG tube was inserted. Restraints were on. Talked with RN, states he was combative overnight. He was attempting to pull out his NG tube as well as his central line dressing. 600mL of coffee ground fluid was pulled out of NG tube since 1 am Objective incision C/D/I Patient was sleeping in no acute distress at time of examination. There were blisters noted on the right lower extremity at the distal end of the metatarsals. No visible grimace while attempting to remove brace to view the extremity. Mild erythema of the right knee joint. NG tube pulled off 600mL of coffee ground fluid. Date Time Temp Pulse Resp B/P Pulse Ox O2 Delivery O2 Flow Rate FiO2 07/28/16 04:00 Room Air 07/28/16 03:58 37.1 78 20 126/53 94 Room Air 07/28/16 00:00 Room Air 07/27/16 23:58 37.7 72 18 155/63 96 Room Air 07/27/16 20:00 36.6 67 21 126/65 95 Room Air 07/27/16 20:00 Room Air 07/27/16 16:00 Room Air 07/27/16 16:00 36.9 96 16 119/68 95 Room Air 07/27/16 15:15 73 16 101/72 98 07/27/16 14:15 88 16 117/55 96 07/27/16 13:15 70 16 122/57 99 07/27/16 13:00 36.8 80 14 111/62 94 07/27/16 12:42 36.8 65 16 100/54 97 07/27/16 12:00 Room Air 07/27/16 09:30 88 14 117/70 97 07/27/16 08:30 37.0 83 16 106/59 95 07/27/16 08:00 Room Air 07/27/16 07:32 36.8 84 16 105/60 98 07/27/16 07:24 37.0 82 16 114/56 98 Room Air 07/27/16 07:20 37.0 82 14 114/56 98 07/27/16 07:08 37.1 79 16 106/51 97 Laboratory Results 24 Hours: Test 07/27/16 11:54 07/27/16 22:01 07/28/16 05:50 Hematocrit 24.4 % 28.2 % 28.2 % Hemoglobin 8.2 g/dL 9.5 g/dL 9.5 g/dL White Blood Count 7.25 K/uL Red Blood Count 3.16 M/uL Mean Corpuscular Volume 89.2 fL Mean Corpuscular Hemoglobin 30.1 pg Mean Corpuscular Hemoglobin Concent 33.7 g/dl Platelet Count 225 K/uL Mean Platelet Volume 8.5 fL Neutrophils (%) (Auto) 83.2 % Lymphocytes (%) (Auto) 8.4 % Monocytes (%) (Auto) 7.4 % Eosinophils (%) (Auto) 0.3 % Basophils (%) (Auto) 0.1 % Neutrophils # (Auto) 6.03 K/uL Lymphocytes # (Auto) 0.61 K/uL Monocytes # (Auto) 0.54 K/uL Eosinophils # (Auto) 0.02 K/uL Basophils # (Auto) 0.01 K/uL Assessment & Plan Assessment: Distal Right Femur Fracture s/p R TKA ACUTE RIGHT POPLITEAL DVT - IVC filter placed ACUTE RENAL FAILURE on Chronic Renal Impairment - improving RLE CELLULITIS with Blisters on foot HYPERKALEMIA - resolved HYPERMAGNESEMIA Acute Blood Loss ANEMIA - Transfused 2 units HTN GOUT Plan: Surgery held till 07/29/16 pending continued improvement of patients renal status. As per Medicine Service / Anesthesia Service Plan for IM Retrograde Nailing when cleared, planning for as of now. NPO after midnight Renal function continues to improve BUN - 74 CREAT - 2.50 HGB has seemed to stabilize at 9.5 after transfusion. Inhouse Planning Pain Management: Oxycontin, Dilaudid, Oxy IR DVT Prophylaxis: TEDs, SCDs, other (IVC filter) Discharge Planning Discharge Planning: uncertain
[2016-07-28] MEDS: METOPROLOL TARTRATE 1 MG/ML VIAL IV. SCH ×3 (08:11→20:26)
--- NOTE | 2016-07-28 08:36 | DIAGNOSTIC IMAGING REPORT ---
KUB CLINICAL HISTORY: Postoperative nausea and vomiting. Enteric tube placement. FINDINGS: 2 AP supine abdominal radiographs are compared to study dated 07/27/2016. The examination is significantly degraded by large body habitus. An enteric tube projects just below the gastroesophageal junction. The side holes are likely above the diaphragm. An IVC filter is in place. There is no radiographic evidence of bowel obstruction. No evidence of intraperitoneal free air is seen on these supine images. The skeletal structures are osteopenic. Lumbosacral spondylosis is observed. The bony pelvis is grossly intact. IMPRESSION: 1. There is no radiographic evidence of bowel obstruction. 2. An enteric tube has been placed. The tip projects just below the diaphragm. This should be advanced. Electronically signed by: Venkat Ramirez M.D. 07/28/2016 8:35 AM Dictated Date/Time: 07/28/2016 8:33 AM
--- NOTE | 2016-07-28 08:43 | DIAGNOSTIC IMAGING REPORT ---
CHEST ONE VIEW PORTABLE CLINICAL HISTORY: postop nausea / vomiting pain COMPARISON STUDY: 07/26/2016 FINDINGS: Mild stable cardiomegaly. Nasogastric tube inferior to the diaphragm. Central catheters. Vena cava. Lungs are clear. IMPRESSION: Lungs are clear. Tube and line position as noted. Electronically signed by: Skinny Gilbert M.D. 07/28/2016 8:41 AM Dictated Date/Time: 07/28/2016 8:36 AM
[2016-07-28] MEDS: OXYCODONE HCL 10 MG TABCR (OXYCONTIN) PO SCH (09:00)
[2016-07-28] MEDS: METOPROLOL TARTRATE 25 MG TAB PO SCH (09:00)
[2016-07-28] MEDS ORDERED: BISACODYL 10 MG SUPP PR STA (09:10)
[2016-07-28] MEDS: ONDANSETRON INJ 2 MG/ML 2 ML VIAL IV PRN (09:40)
--- NOTE | 2016-07-28 10:13 | Gastrointestinal Consultation ---
Gastrointestinal Consultation Date of Consultation: Jul 28, 2016 Attending Physician: Dr. Gomez, Consult from Dr. Faulkner Consulting Physician: Dr. Quintanilla Reason for Consultation: UGI Bleed History of Present Illness Patient is a 71 year old male patient with a hx HTN, GERD, Gout who underwent RTKA on 07/16. Though he did well post operatively, on 07/26, he fell and sustained a femur fracture. He was admitted on 07/26 to undergo surgical repair. Yesterday, he experienced nausea, vomiting and an NG was inserted with 600cc of liquid with some coffee grounds. Currently, the NG drainage is bilious w/o any evidence of bleeding. Of note, he has some confusion and has pulled the NG out twice with it having been replaced both times. Regarding his anemia, on arrival , Hb was 8.5, BUN 118. He received 2 units of RBCs and Hb is now 9.5. Prior to admission, he was on aspirin 81mg daily but no other antiplatelets or anticoagulants. He has a marce filter in place but, according to his primary hospitalist it is anticipated that he will also be on an anticoagulant after the femur repair. GI is asked to complete an EGD to r/o UGI ulcers or other lesions that could cause GI blood loss during anticoagulation. Past Medical/Surgical History Past Medical History: 1. HTN 2. GERD 3. Gout 4. DJD Past Surgical History: 1. Right total knee replacement on 07/16. 2. Left knee surgery 1964 3. Tonsillectomy Social History Smoking Status: Never Smoker Housing Status: lives with family Occupation Status: retired Allergies Coded Allergies: No Known Allergies (Unverified , 06/21/16) Current Medications Home Meds and Scripts Medications Dose Route/Sig Max Daily Dose Days Date Category Flomax (Tamsulosin Hcl) 0.4 Mg Cap 1 Cap PO DAILY 30 07/26/16 Reported Zofran (Ondansetron HCl) 8 Mg Tab 8 Mg PO Q8 PRN 07/17/16 Rx Tylenol Extra Strength (Acetaminophen) 500 Mg Tab 1,000 Mg PO Q8H 07/17/16 Rx Celebrex (Celecoxib) 200 Mg Cap 200 Mg PO BID 07/17/16 Rx Oxycodone HCl 5 Mg Tab 5-10 Mg PO Q4H PRN 07/17/16 Rx Oxycontin (Oxycodone HCl) 10 Mg Tabcr 10 Mg PO Q12 07/17/16 Rx Aspirin EC Low Dose (Aspirin) 81 Mg Ectab 81 Mg PO BID 30 07/17/16 Rx Lopressor (Metoprolol Tartrate) 25 Mg Tab 12.5 Mg PO BID 07/15/16 Reported [place] (Aspirin Effervescent) 1 Tab Tab 1 Tab PO PRN 06/21/16 Reported Mvi With Minerals (Multivitamins/Minerals) Tab 1 Tab PO QAM 06/21/16 Reported Trazodone (Trazodone HCl) 100 Mg Tab 100 Mg PO HS 06/21/16 Reported Prazosin (Prazosin HCl) 2 Mg Cap 2 Mg PO HS 06/21/16 Reported Roxicodone Ir (Oxycodone HCl) 5 Mg Tab 5 Mg PO Q6H PRN 06/21/16 Reported [Nystatin Powder] 1 Dose TOP PRN 06/21/16 Reported Zestril (Lisinopril) 20 Mg Tab 20 Mg PO QAM 06/21/16 Reported Hctz (Hydrochlorothiazide) 25 Mg Tab 25 Mg PO QAM 06/21/16 Reported Buspirone Hcl 10 Mg Tab 10 Mg PO HS 06/21/16 Reported Zyloprim (Allopurinol) 100 Mg Tab 150 Mg PO QAM 06/21/16 Reported Review of Systems Constitutional: No chills, No fever, No sweats, No weakness, No weight loss Eyes: No eye pain, No redness ENT: No pain on swallowing, No sore throat, No trouble swallowing Respiratory: No cough, No dyspnea on exertion, No shortness of breath, No wheezing Cardiac: No chest pain, No edema, No palpitations Abdomen: + GI bleeding (coffee grounds on placement of NG), + nausea (yesterday ), + see HPI, + vomiting (yesterday), No pain Neuro: No balance problems, No memory loss, No numbness/tingling, No vertigo, No weakness Psych: No anxiety, No depression symptoms, No insomnia Heme: No abnormal bleeding/bruising, No night sweats Endo: No excessive thirst, No excessive urination Skin: No itch, No jaundice, No new/changing skin lesions, No rash Physical Exam Date Time Temp Pulse Resp B/P Pulse Ox O2 Delivery O2 Flow Rate FiO2 07/28/16 07:16 37.5 72 18 121/68 96 Room Air 07/28/16 04:00 Room Air 07/28/16 03:58 37.1 78 20 126/53 94 Room Air 07/28/16 00:00 Room Air 07/27/16 23:58 37.7 72 18 155/63 96 Room Air 07/27/16 20:00 36.6 67 21 126/65 95 Room Air 07/27/16 20:00 Room Air 07/27/16 16:00 Room Air 07/27/16 16:00 36.9 96 16 119/68 95 Room Air 07/27/16 15:15 73 16 101/72 98 07/27/16 14:15 88 16 117/55 96 07/27/16 13:15 70 16 122/57 99 07/27/16 13:00 36.8 80 14 111/62 94 07/27/16 12:42 36.8 65 16 100/54 97 07/27/16 12:00 Room Air 07/27/16 09:30 88 14 117/70 97 07/27/16 08:30 37.0 83 16 106/59 95 General Appearance: + mild distress (pt aggitated, restless) Eyes: normal inspection, EOMI Neck: supple, no adenopathy, thyroid normal, no JVD Respiratory/Chest: chest non-tender, lungs clear, normal breath sounds, no accessory muscle use Cardiovascular: regular rate, rhythm, no JVD, no murmur, + pertinent finding ( mild left lower leg edema, moderate right lower leg edema) Abdomen: normal bowel sounds, non tender, soft, no organomegaly Extremities: normal inspection, no pedal edema, normal capillary refill Neurologic/Psych: alert, + pertinent finding (tells me his name and denies abdominal pain but unable to tell me the date, where he is. He tells me that he "came here to see a [employer].") Skin: normal color, no jaundice, warm/dry, no rash Laboratory Results Last 24 Hours Test 07/27/16 11:54 07/27/16 20:52 07/27/16 22:01 07/28/16 05:30 Hemoglobin 8.2 g/dL 9.5 g/dL Hematocrit 24.4 % 28.2 % Bedside Glucose 109 mg/dl 165 mg/dl White Blood Count 7.25 K/uL Red Blood Count 3.16 M/uL Mean Corpuscular Volume 89.2 fL Mean Corpuscular Hemoglobin 30.1 pg Mean Corpuscular Hemoglobin Concent 33.7 g/dl Platelet Count 225 K/uL Mean Platelet Volume 8.5 fL Neutrophils (%) (Auto) 83.2 % Lymphocytes (%) (Auto) 8.4 % Monocytes (%) (Auto) 7.4 % Eosinophils (%) (Auto) 0.3 % Basophils (%) (Auto) 0.1 % Neutrophils # (Auto) 6.03 K/uL Lymphocytes # (Auto) 0.61 K/uL Monocytes # (Auto) 0.54 K/uL Eosinophils # (Auto) 0.02 K/uL Basophils # (Auto) 0.01 K/uL RDW Standard Deviation 48.6 fL RDW Coefficient of Variation 14.7 % Immature Granulocyte % (Auto) 0.6 % Immature Granulocyte # (Auto) 0.04 K/uL Sodium Level 145 mmol/L Potassium Level 4.5 mmol/L Chloride Level 114 mmol/L Carbon Dioxide Level 23 mmol/L Anion Gap 8.0 mmol/L Blood Urea Nitrogen 92 mg/dl Creatinine 2.70 mg/dl Est Creatinine Clear Calc Drug Dose 32.9 ml/min Estimated GFR () 26.5 Estimated GFR (Non- 22.8 BUN/Creatinine Ratio 33.9 Random Glucose 118 mg/dl Calcium Level 8.3 mg/dl Magnesium Level 2.5 mg/dl Total Bilirubin 0.7 mg/dl Aspartate Amino Transf (AST/SGOT) 13 U/L Alanine Aminotransferase (ALT/SGPT) 12 U/L Alkaline Phosphatase 76 U/L Total Protein 5.7 gm/dl Albumin 2.4 gm/dl Globulin 3.3 gm/dl Albumin/Globulin Ratio 0.7 Amylase Level 19 U/L Lipase 58 U/L Test 07/28/16 05:50 White Blood Count 8.79 K/uL Red Blood Count 3.17 M/uL Hemoglobin 9.5 g/dL Hematocrit 28.2 % Mean Corpuscular Volume 89.0 fL Mean Corpuscular Hemoglobin 30.0 pg Mean Corpuscular Hemoglobin Concent 33.7 g/dl RDW Standard Deviation 48.0 fL RDW Coefficient of Variation 14.6 % Platelet Count 217 K/uL Mean Platelet Volume 8.3 fL Sodium Level 147 mmol/L Potassium Level 4.1 mmol/L Chloride Level 114 mmol/L Carbon Dioxide Level 23 mmol/L Anion Gap 10.0 mmol/L Blood Urea Nitrogen 74 mg/dl Creatinine 2.50 mg/dl Est Creatinine Clear Calc Drug Dose 34.9 ml/min Estimated GFR () 29.1 Estimated GFR (Non- 25.1 BUN/Creatinine Ratio 29.5 Random Glucose 157 mg/dl Calcium Level 8.1 mg/dl Phosphorus Level 3.1 mg/dl Magnesium Level 2.5 mg/dl Random Vancomycin Level 20.8 mcg/ml Impression Patient is a 71 year old male patient with a femur fracture and recent acute blood loss anemia. There is documentation of some coffee ground NG aspirates but otherwise no gross GI bleeding. GI is asked to r/o UGI bleeding, potential bleeding lesion in anticipation of surgery and anticoagulation. Plan 1. Will contact POA for consent. 2. If consent obtained then will go forward with EGD. ATTESTATION: I have performed a history and physical examination of this patient and reviewed the electronic record. Specifically, on physical examination there is no abdominal tenderness. I have discussed the case with SUKHJINDER Bullard. The above note reflects my findings, conclusions, and recommendations. Mahendra Quintanilla MD
--- NOTE | 2016-07-28 11:14 | Pharmacy Progress Note ---
Pharmacy Antibiotic Prog Note Date of Service: Jul 28, 2016. Subjective: The patient is currently on day # 3 of vancomycin IV therapy for RLE cellulitis s/p R TKA on 07/16. Objective: Height (Feet): 5 Height (Inches): 7.00 Weight (Kilograms): 125.200 Levels: Item Value Date Time Random Vancomycin Level 23.6 mcg/ml 07/27/16 0526 Random Vancomycin Level 20.8 mcg/ml 07/28/16 0550 Lab Results (24hrs): Laboratory Tests Test 07/27/16 22:01 07/28/16 05:50 BUN/Creatinine Ratio 33.9 29.5 Blood Urea Nitrogen 92 mg/dl 74 mg/dl Creatinine 2.70 mg/dl 2.50 mg/dl White Blood Count 7.25 K/uL 8.79 K/uL Red Blood Count 3.16 M/uL Hemoglobin 9.5 g/dL Hematocrit 28.2 % Mean Corpuscular Volume 89.2 fL Mean Corpuscular Hemoglobin 30.1 pg Mean Corpuscular Hemoglobin Concent 33.7 g/dl Platelet Count 225 K/uL Mean Platelet Volume 8.5 fL Neutrophils (%) (Auto) 83.2 % Lymphocytes (%) (Auto) 8.4 % Monocytes (%) (Auto) 7.4 % Eosinophils (%) (Auto) 0.3 % Basophils (%) (Auto) 0.1 % Neutrophils # (Auto) 6.03 K/uL Lymphocytes # (Auto) 0.61 K/uL Monocytes # (Auto) 0.54 K/uL Eosinophils # (Auto) 0.02 K/uL Basophils # (Auto) 0.01 K/uL Micro Results: Item Value Date Time MRSA DNA Surveillance Screen - Final Complete 07/26/16 2245 Nasal Specimen Negative for MRSA by DNA Probe Recent Pertinent Medications: Item Value Date Time Vancomycin HCl 270 ml @ 125 mls/hr 07/27/16 1400 1000 mg/Sodium TODAY@1400 ONCE/IV 07/27/16 1421 Chloride Assessment & Plan: ASSESSMENT: * Random vancomycin level from this AM slightly supratherapeutic but SCr has improved further (4.3->3.7->2.5) so I anticipate patient needing another dose later today * Will not plan to provide a maintenance dose at this point since SCr changing daily PLAN: * Vancomycin 1 gm IV x 1 today at 1400 * Random level with AM labs on 07/29 * If SCr near baseline, will plan to initiate a maintenance dose Pharmacy will continue to follow and will adjust dose/frequency as necessary. Thank you
[2016-07-28] MEDS: HYDROmorphone INJ 1 MG/ML SYR IV PRN ×3 (12:05→18:32)
[2016-07-28 12:53] LABS: HEMATOCRIT 28.4 % (42-52)
[2016-07-28 13:00] LABS: INR 1.1 (0.9-1.1); PARTIAL THROMBOPLASTIN RATIO 1.2
[2016-07-28] MEDS ORDERED: VANCOMYCIN INJ 1,000 MG in SODIUM CHLORIDE 0.9% 250ML 250 ML IV ONE (14:00)
[2016-07-28] MEDS ORDERED: PROPOFOL IV EMULSION 10 MG/ML 20 ML VIAL IV ONE (14:38)
[2016-07-28] MEDS ORDERED: LIDOCAINE HCL 2% 2 ML VIAL (20MG/ML) ONE (14:38)
--- NOTE | 2016-07-28 15:12 | Anesthesiology Progress Note ---
Pre-OP Anesthesia Assessment Date of Note Jul 28, 2016. Review patient information reviewed, chart reviewed, labs reviewed, acceptable for surgery Notes 71 y.o. male had right TKA 07/16/16 under [facility] without problems. After discharge , pt fell and sustained fracture to right femur. ORIF is planned. While hospitalized, pt was diagnosed with acute DVT and had IVC filter placed. Also noted to have coffee grounds like emesis and is presently undergoing upper endoscopy. PMH is otherwise significant for obesity, HTN, GERD, renal insufficiency, anxiety, depression, migraines. I would anticipate spinal anesthesia for planned procedure. However, unable to discuss with pt at this time as he is sedated in endoscopy suite. Anesthesiologist will further evaluate pt, discuss anesthetic and obtain consent prior to surgery.
[2016-07-28] MEDS ORDERED: PHENYLEPHRINE 100MCG/ML 5ML SYR ONE (15:16)
--- NOTE | 2016-07-28 15:18 | GI REPORT ---
Procedure Date: 07/28/2016 2:42 PM Procedure: Upper GI endoscopy Indications: Coffee-ground emesis, Nausea with vomiting Medicines: Propofol per Anesthesia Complications: No immediate complications. Estimated blood loss: None. Estimated Blood Loss: Estimated blood loss: none. Procedure: Pre-Anesthesia Assessment: - Prior to the procedure, a History and Physical was performed, and patient medications, allergies and sensitivities were reviewed. The patient's tolerance of previous anesthesia was reviewed. - ASA Grade Assessment: III - A patient with severe systemic disease. After obtaining informed consent, the endoscope was passed under direct vision. Throughout the procedure, the patient's blood pressure, pulse, and oxygen saturations were monitored continuously. The scope was introduced through the mouth, and advanced to the third part of duodenum. The upper GI endoscopy was accomplished with ease. The patient tolerated the procedure well. Findings: LA Grade D (one or more mucosal breaks involving at least 75% of esophageal circumference) esophagitis with no bleeding was found in the lower third of the esophagus. Diffuse mild inflammation characterized by congestion (edema) and erythema was found in the entire examined stomach. Biopsies were taken with a cold forceps for Helicobacter pylori testing. Two non-bleeding cratered duodenal ulcers were found in the distal bulb in the first part of the duodenum. There is a flat hemorrhagic spot in the larger ulceration. The largest lesion was 9 mm in largest dimension. Impression: - LA Grade D reflux esophagitis. - Gastritis. Biopsied. - Multiple non-bleeding duodenal ulcers with red spot. Recommendation: - [facility] for [facility] care. Mahendra Quintanilla M.D. Mahendra Quintanilla MD 07/28/2016 3:18:18 PM This report has been signed electronically. Note Initiated On: 07/28/2016 2:42 PM I attest to the content of the Intraoperative Record and orders documented therein, exceptions below
--- NOTE | 2016-07-28 15:36 | Anesthesiology Progress Note ---
Anesthesia Post Op Note Date & Time Jul 28, 2016 at 15:36 Vital Signs Pain Intensity: 8.0 Vital Signs Past 12 Hours Date Time Temp Pulse Resp B/P Pulse Ox O2 Delivery O2 Flow Rate FiO2 07/28/16 15:27 81 20 125/109 98 Room Air 07/28/16 15:12 62 20 119/100 98 Room Air 07/28/16 13:58 36.6 76 20 131/85 97 07/28/16 13:16 37.4 75 20 129/63 95 Room Air 07/28/16 12:00 Room Air 07/28/16 11:05 36.7 67 18 108/58 92 Room Air 07/28/16 08:11 67 07/28/16 08:00 Room Air 07/28/16 07:16 37.5 72 18 121/68 96 Room Air 07/28/16 04:00 Room Air 07/28/16 03:58 37.1 78 20 126/53 94 Room Air Notes Mental Status: alert / awake / arousable, participated in evaluation Pt Amnestic to Procedure: Yes Nausea / Vomiting: adequately controlled Pain: adequately controlled Airway Patency, RR, SpO2: stable & adequate BP & HR: stable & adequate Hydration State: stable & adequate Anesthetic Complications: no major complications apparent
[2016-07-28] MEDS ORDERED: NURSING VERBAL MED ORDER ONE (16:30)
--- NOTE | 2016-07-28 17:56 | Progress Note ---
Internal Med Progress Note Date of Service: Jul 28, 2016. Provider Documentation: SUBJECTIVE: The patient was seen and examined Has has acute confusion last night with abdominal pain and nausea Reported Coffee ground vomiting NGT was put in and GI consulted Much better this AM OBJECTIVE: Vital Signs-as noted below Exam: General-no distress at rest Eyes-normal ENT-normal Neck-supple Lungs-Decreased breath sound bilaterally Heart-Regular,no murmur appreciated Abdomen-Benign,no masses,bowel sound present Extremities-Bilateral leg swelling Right more than the left Right leg redness with increased local temperature A few blisters at the distal end of the foot Neuro-AAOx3 Lab data as noted below. ASSESSMENT & PLAN: Coffee ground Vomiting with abdominal pain Appreciate GI input EGD::Multiple Duodenal Ulcers with red spots Esophagitis and gastritis No active bleeding No anticoagulation for 3 weeks PPI Can go for surgery tomorrow Repeat EGD in 3 weeks before starting any Anticoagulation and or Aspirin Acute Delirium -completely resolved Received Ativan last night Condition got worse Likely has intolerance to Ativan Use Haldol instead of Ativan for any issue RIGHT FEMUR FRACTURE S/P Fall ,likely mechanical -significant comorbidities - ARF, acute DVT, cellulitis, anemia -obtain outpatient records - had preop clearance for surgery on 07/16 -Management as per Ortho -Likely surgery tomorrow ACUTE RIGHT POPLITEAL DVT -per ortho can not have anticoagulation at this time due to acute fracture and anticipated surgery -vascular surgery consulted for IVC filter -s/p IVC filter placement 07/27/16 ACUTE RENAL FAILURE on Chronic Renal Impairment -possibly multifactorial from recent surgery, NSAID use, poor po intake, infection, and other etiologies -Creatinine 4.3 on admission was 1.8 on 07/17 -gentle IVF hydration due to Edema of the legs -hold NSAIDs, Diuretics -avoid other nephrotoxins as able -Creatinine is improving RLE CELLULITIS with Blisters on foot -leukocytosis resolved, afebrile -blood cultures obtained at [facility] -continue Vancomycin, pharmacy consulted for dosing HYPERKALEMIA -resolved, currently 4.9 -continue IVF hydration -repeat in AM -3.6 on 07/27/16 HYPERMAGNESEMIA Remains elevated Acute Blood Loss ANEMIA -hgb 8.5, possibly secondary to acute blood loss from recent TKA -no signs of active bleeding -check anemia profile -has low Iron -Hb dropped <8.0 -getting 1 Unit of PRBC HTN -soft BPs -continue BB with parameters -hold HCTZ, Lisinopril for JOHN GOUT -continue allopurinol RECENT RTKA -management per ortho CODE STATUS: FULL CODE DISPO:per ortho Vital Signs: Date Time Temp Pulse Resp B/P Pulse Ox O2 Delivery O2 Flow Rate FiO2 07/28/16 16:07 37.9 77 24 138/73 96 Room Air 07/28/16 16:04 79 07/28/16 16:00 Room Air 07/28/16 15:42 72 20 128/86 98 Room Air 07/28/16 15:27 81 20 125/109 98 Room Air 07/28/16 15:12 62 20 119/100 98 Room Air 07/28/16 13:58 36.6 76 20 131/85 97 07/28/16 13:16 37.4 75 20 129/63 95 Room Air 07/28/16 12:00 Room Air 07/28/16 11:05 36.7 67 18 108/58 92 Room Air 07/28/16 08:11 67 07/28/16 08:00 Room Air 07/28/16 07:16 37.5 72 18 121/68 96 Room Air 07/28/16 04:00 Room Air 07/28/16 03:58 37.1 78 20 126/53 94 Room Air 07/28/16 00:00 Room Air 07/27/16 23:58 37.7 72 18 155/63 96 Room Air 07/27/16 20:00 36.6 67 21 126/65 95 Room Air 07/27/16 20:00 Room Air Lab Results: Results Past 24 Hours Test 07/27/16 20:52 07/27/16 22:01 07/28/16 05:30 07/28/16 05:50 Range/Units Bedside Glucose 109 165 70-99 mg/dl White Blood Count 7.25 8.79 4.8-10.8 K/uL Red Blood Count 3.16 3. 4.7-6.1 M/uL Hemoglobin 9.5 9.5 14.0-18.0 g/dL Hematocrit 28.2 28.2 42-52 % Mean Corpuscular Volume 89.2 89.0 80-100 fL Mean Corpuscular Hemoglobin 30.1 30.0 25-34 pg Mean Corpuscular Hemoglobin Concent 33.7 33.7 32-36 g/dl Platelet Count 225 217 130-400 K/uL Mean Platelet Volume 8.5 8.3 7.4-10.4 fL Neutrophils (%) (Auto) 83.2 % Lymphocytes (%) (Auto) 8.4 % Monocytes (%) (Auto) 7.4 % Eosinophils (%) (Auto) 0.3 % Basophils (%) (Auto) 0.1 % Neutrophils # (Auto) 6.03 1.4-6.5 K/uL Lymphocytes # (Auto) 0.61 1.2-3.4 K/uL Monocytes # (Auto) 0.54 0.11-0.59 K/uL Eosinophils # (Auto) 0.02 0-0.5 K/uL Basophils # (Auto) 0.01 0-0.2 K/uL RDW Standard Deviation 48.6 48.0 36.4-46.3 fL RDW Coefficient of Variation 14.7 14.6 11.5-14.5 % Immature Granulocyte % (Auto) 0.6 % Immature Granulocyte # (Auto) 0.04 0.00-0.02 K/uL Sodium Level 145 147 136-145 mmol/L Potassium Level 4.5 4.1 3.5-5.1 mmol/L Chloride Level 114 114 98-107 mmol/L Carbon Dioxide Level 23 23 21-32 mmol/L Anion Gap 8.0 10.0 3-11 mmol/L Blood Urea Nitrogen 92 74 7-18 mg/dl Creatinine 2.70 2.50 0.60-1.40 mg/dl Est Creatinine Clear Calc Drug Dose 32.9 34.9 ml/min Estimated GFR () 26.5 29.1 Estimated GFR (Non- 22.8 25.1 BUN/Creatinine Ratio 33.9 29.5 10-20 Random Glucose 118 157 70-99 mg/dl Calcium Level 8.3 8.1 8.5-10.1 mg/dl Magnesium Level 2.5 2.5 1.8-2.4 mg/dl Total Bilirubin 0.7 0.2-1 mg/dl Aspartate Amino Transf (AST/SGOT) 13 15-37 U/L Alanine Aminotransferase (ALT/SGPT) 12 12-78 U/L Alkaline Phosphatase 76 45-117 U/L Total Protein 5.7 6.4-8.2 gm/dl Albumin 2.4 3.4-5.0 gm/dl Globulin 3.3 2.5-4.0 gm/dl Albumin/Globulin Ratio 0.7 0.9-2 Amylase Level 19 25-115 U/L Lipase 58 73-393 U/L Phosphorus Level 3.1 2.5-4.9 mg/dl Random Vancomycin Level 20.8 mcg/ml Test 07/28/16 12:39 07/28/16 16:50 Range/Units Hemoglobin 9.6 14.0-18.0 g/dL Hematocrit 28.4 42-52 % Prothrombin Time 12.0 9.0-12.0 SECONDS Prothromb Time International Ratio 1.1 0.9-1.1 Activated Partial Thromboplast Time 30.7 21.0-31.0 SECONDS Partial Thromboplastin Ratio 1.2 Stool Occult Blood NEGATIVE NEGATIVE
[2016-07-28] MEDS ORDERED: PIPERACILL/TAZOBAC IV 4.5 GM in DEXTROSE 5% 100ML 100 ML IV STA (23:45)
[2016-07-29] VITALS (10 sets, daily range): BP systolic 123–154; BP diastolic 63–83; PULSE 58–120; TEMP 36.8–37.9; O2SAT 95–98
[2016-07-29 00:29] LABS: HEMATOCRIT 27.2 % (42-52); MEAN CELL VOLUME 87.5 fL (80-100); MEAN CORPUSCULAR HEMOGLOBIN 29.9 pg (25-34); MEAN CORPUSCULAR HGB CONC 34.2 g/dl (32-36); MEAN PLATELET VOLUME 8.1 fL (7.4-10.4); PLATELET COUNT 200 K/uL (130-400); RED BLOOD COUNT 3.11 M/uL (4.7-6.1); WHITE BLOOD COUNT 12.07 K/uL (4.8-10.8)
[2016-07-29] MEDS ORDERED: ACETAMINOPHEN 500 MG TAB PO STA (00:31)
[2016-07-29] MEDS ORDERED: PIPERACILL/TAZOBAC CONSULT ACTIVE PRN (00:45)
[2016-07-29] MEDS: PANTOprazole INJ 40 MG in DEXTROSE 5% 100ML IV SCH ×5 (01:24→21:19)
[2016-07-29] MEDS: METOPROLOL TARTRATE 1 MG/ML VIAL IV. SCH ×4 (03:01→19:59)
[2016-07-29] MEDS: PIPERACILL/TAZOBAC IV 4.5 GM in DEXTROSE 5% 100ML IV SCH ×3 (06:06→21:24)
--- NOTE | 2016-07-29 06:45 | DIAGNOSTIC IMAGING REPORT ---
CHEST ONE VIEW PORTABLE CLINICAL HISTORY: fever dyspnea COMPARISON STUDY: 07/28/2016 0730 hours Findings mild cardiomegaly. Interval removal of the nasogastric tube. The catheter remains this. Vena cava. Diaphragms are smooth. No evidence pneumothorax. IMPRESSION: Interval removal of the nasogastric tube. Lungs remain clear. Mild stable cardiomegaly. Electronically signed by: Skinny Gilbert M.D. 07/29/2016 6:44 AM Dictated Date/Time: 07/29/2016 6:43 AM
[2016-07-29 07:26] LABS: HEMATOCRIT 26.4 % (42-52); MEAN CELL VOLUME 87.4 fL (80-100); MEAN CORPUSCULAR HEMOGLOBIN 30.1 pg (25-34); MEAN CORPUSCULAR HGB CONC 34.5 g/dl (32-36); MEAN PLATELET VOLUME 7.8 fL (7.4-10.4); PLATELET COUNT 183 K/uL (130-400); RED BLOOD COUNT 3.02 M/uL (4.7-6.1); WHITE BLOOD COUNT 12.62 K/uL (4.8-10.8)
[2016-07-29] MEDS: ACETAMINOPHEN 650 MG SUPP PR PRN ×2 (07:39→13:48)
[2016-07-29] MEDS ORDERED: ONDANSETRON INJ 2 MG/ML 2 ML VIAL IV PRN (08:00)
[2016-07-29] MEDS ORDERED: EpHEDrine SULFATE INJ 50 MG/ML AMP IV PRN (08:00)
[2016-07-29] MEDS ORDERED: ATROPINE SULFATE 0.1 MG/ML 5ML SYR IV PRN (08:00)
[2016-07-29] MEDS ORDERED: FENTANYL CITRATE INJ 50 MCG/1 ML 2 ML VIAL IV PRN (08:00)
[2016-07-29 08:37] LABS: BUN/CREATININE RATIO 25.5 (10-20); CREATININE 1.9 mg/dl (0.60-1.40); POTASSIUM 3.9 mmol/L (3.5-5.1)
[2016-07-29 09:25] LABS: URINE APPEARANCE CLEAR (CLEAR); URINE BILIRUBIN NEG (NEG); URINE COLOR YELLOW; URINE NITRITE NEG (NEG); URINE PH 5.5 (4.5-7.5); UROBILINOGEN NEG (NEG); ZZUR CULT IF INDIC CLEAN CATCH NO
[2016-07-29 09:44] LABS: MANUAL MICROSCOPIC REQUIRED? NO; REVIEW REQ? NO
--- NOTE | 2016-07-29 10:17 | Pharmacy Progress Note ---
Pharmacy Antibiotic Prog Note Date of Service: Jul 29, 2016. Subjective: The patient is currently on day # 4 of vancomycin IV therapy for RLE cellulitis s/p R TKA on 07/16/16. Zosyn added last night for elevated WBC count, fevers - IJ catheter tip now being cultured. Objective: Height (Feet): 5 Height (Inches): 7.00 Weight (Kilograms): 123.800 (BMI = 42.7) Levels: Item Value Date Time Random Vancomycin Level 17.7 mcg/ml 07/29/16 0713 Lab Results (24hrs): Laboratory Tests Test 07/29/16 00:22 07/29/16 07:13 White Blood Count 12.07 K/uL 12.62 K/uL BUN/Creatinine Ratio 25.5 Blood Urea Nitrogen 48 mg/dl Creatinine 1.90 mg/dl Micro Results: Item Value Date Time Catheter Tip Culture Received 07/29/16 0125 Catheter Tip Central Venous Pressure Line Pending Blood Culture Received 07/29/16 0018 Blood Pending Blood Culture Received 07/29/16 0010 Blood Pending MRSA DNA Surveillance Screen - Final Complete 07/26/16 2245 Nasal Specimen Negative for MRSA by DNA Probe Recent Pertinent Medications: Item Value Date Time Piperacillin Sod/ 120 ml @ 30 mls/hr 07/29/16 0600 Tazobactam Sod Q8H/IV 07/29/16 0606 4.5 gm/Dextrose Vancomycin HCl 270 ml @ 125 mls/hr 07/28/16 1400 1000 mg/Sodium TODAY@1400 ONCE/IV 07/28/16 1604 Chloride Assessment & Plan: ASSESSMENT: * Random level this AM indicates a need to re-dose * SCr now near baseline so I will plan to initiate a maintenance dose * Est PK parameters based upon current SCr: Vd ~ 0.5-0.6 L/kg (elevated BMI), Rodrigo ~ 0.042 hr-1, t1/2 16.5 hrs PLAN: * Vancomycin 1500 mg (12.7 mg/kg) IV q20h to start now * Goal trough 15-20 * Will plan to obtain a trough level prior to the 3rd dose - will NOT be at steady state but need to closely follow with elevated BMI and combination of Zosyn and vanc on board now Pharmacy will continue to follow and will adjust dose/frequency as necessary. Thank you
[2016-07-29] MEDS: D5W AND 1/2NSS 1,000 ML IV SCH (11:11)
[2016-07-29] MEDS: VANCOMYCIN INJ 1,500 MG in SODIUM CHLORIDE 0.9% 500ML 500 ML IV SCH (11:27)
--- NOTE | 2016-07-29 12:44 | Gastroenterology Progress Note ---
Progress Note Date of Service: Jul 29, 2016 Subjective Pt evaluation today including: conversation w/ patient, physical exam, chart review, lab review, review of studies, review of inpatient medication list is a 71 yr old male who is here for fall with plans for femur fracture repair who experienced nausea/vomiting with some coffee grounds on NG insertion. EGD yesterday with large duodenal ulcer. Today, has been NPO with plans for surgery. Review of Systems Constitutional: No fever ENT: + hearing loss (chronic) Respiratory: No cough Cardiac: No chest pain Abdomen: + GI bleeding, + diarrhea, + see HPI, No nausea, No pain, No vomiting Male : No dysuria Psych: No depression symptoms Skin: No jaundice, No rash Medications Current Inpatient Medications Medications (Trade) Dose Ordered Sig/Dwight Route Start Time Stop Time Status Last Admin Dose Admin Oxycodone HCl (Roxicodone Immediate Rel Tab) 5 mg Q4H PRN PO 07/26/16 19:00 08/09/16 18:59 Future Hold Oxycodone HCl (Oxycontin Tab) 10 mg Q12 PO 07/26/16 21:00 08/09/16 20:59 Future Hold 07/27/16 08:48 10 MG Ondansetron HCl 4 mg 4 mg Q4H PRN IV 07/26/16 19:00 08/25/16 18:59 07/28/16 09:40 4 MG Dextrose/Sodium Chloride (D5W And 1/2nss) 1,000 ml @ 75 mls/hr [id number] IV 07/26/16 19:00 08/25/16 18:59 07/29/16 11:11 75 MLS/HR Vancomycin HCl (Consult) 1 ea UD PRN N/A 07/26/16 19:00 08/25/16 18:59 Hydromorphone HCl (Dilaudid Inj) 1 mg Q3H PRN IV 07/26/16 22:00 08/09/16 21:59 07/28/16 18:32 1 MG Allopurinol (Zyloprim Tab) 150 mg QAM PO 07/27/16 09:00 08/26/16 08:59 Future Hold 07/27/16 08:45 150 MG Metoprolol Tartrate (Lopressor Tab) 12.5 mg BID PO 07/27/16 09:00 08/26/16 08:59 Future Hold 07/27/16 08:46 12.5 MG Tamsulosin HCl (Flomax Cap) 0.4 mg DAILY PO 07/27/16 09:00 08/26/16 08:59 Future Hold 07/27/16 08:45 0.4 MG Trazodone HCl (Desyrel Tab) 100 mg HS PO 07/27/16 21:00 08/26/16 20:59 Future Hold Buspirone HCl (Buspar Tab) 10 mg HS PO 07/27/16 21:00 08/26/16 20:59 Future Hold Prazosin HCl 2 mg 2 mg HS PO 07/27/16 21:00 08/26/16 20:59 Future Hold Pantoprazole Sodium/Dextrose (Protonix Inj/D5 100ml) 100 ml @ 20 mls/hr Q5H IV 07/28/16 01:45 08/27/16 01:44 07/29/16 11:11 20 MLS/HR Metoprolol Tartrate (Lopressor Iv) 2.5 mg Q6H IV. 07/28/16 02:00 08/27/16 01:59 07/29/16 07:39 2.5 MG Acetaminophen (Tylenol Supp) 650 mg Q4H PRN NC 07/28/16 23:45 08/27/16 23:44 07/29/16 07:39 650 MG Heparin Sodium (Porcine) 5 ml 5 ml PRN PRN FLUSH 07/29/16 00:30 08/28/16 00:29 Piperacillin Sod/ Tazobactam Sod/ Dextrose (Zosyn Iv/D5 100ml) 120 ml @ 30 mls/hr Q8H IV 07/29/16 06:00 07/31/16 05:59 07/29/16 06:06 30 MLS/HR Piperacillin Sod/ Tazobactam Sod (Consult) 1 ea UD PRN N/A 07/29/16 00:45 08/28/16 00:44 Fentanyl Citrate (Fentanyl Inj) 25 mcg Q5M PRN IV 07/29/16 08:00 07/29/16 13:00 Ondansetron HCl (Zofran Inj) 4 mg ONE PRN IV 07/29/16 08:00 07/29/16 13:00 Ephedrine Sulfate (EpHEDrine SULFATE INJ) 5 mg Q5M PRN IV 07/29/16 08:00 07/29/16 13:00 Atropine Sulfate 0.5 mg 0.5 mg Q1M PRN IV 07/29/16 08:00 07/29/16 13:00 Vancomycin HCl/ Sodium Chloride (Vancomycin Inj/ Nss 500ml) 530 ml @ 200 mls/hr Q20H IV 07/29/16 12:00 08/06/16 11:59 07/29/16 11:27 200 MLS/HR Objective Vital Signs Date Time Temp Pulse Resp B/P Pulse Ox O2 Delivery O2 Flow Rate FiO2 07/29/16 11:45 Room Air 07/29/16 08:00 Room Air 07/29/16 07:39 84 07/29/16 07:15 37.6 67 18 145/69 96 Room Air 07/29/16 04:00 Room Air 07/29/16 03:01 74 136/63 07/29/16 02:59 37.0 58 18 140/71 95 Room Air 07/29/16 02:39 37.7 74 18 136/63 98 Room Air 07/29/16 02:15 37.9 73 18 142/73 97 Room Air 07/29/16 01:43 37.3 120 18 149/71 96 Room Air 07/29/16 01:18 37.3 67 20 132/67 95 Room Air 07/29/16 00:00 Room Air 07/28/16 23:20 38.5 71 22 125/55 97 Room Air 07/28/16 20:26 69 134/70 07/28/16 20:00 Room Air 07/28/16 18:54 37.2 69 20 134/70 95 Room Air 07/28/16 16:07 37.9 77 24 138/73 96 Room Air 07/28/16 16:04 79 07/28/16 16:00 Room Air 07/28/16 15:42 72 20 128/86 98 Room Air 07/28/16 15:27 81 20 125/109 98 Room Air 07/28/16 15:12 62 20 119/100 98 Room Air 07/28/16 13:58 36.6 76 20 131/85 97 07/28/16 13:16 37.4 75 20 129/63 95 Room Air Physical Exam General Appearance: no apparent distress ENT: pharynx normal Neck: thyroid normal, no JVD Respiratory/Chest: lungs clear Cardiovascular: regular rate, rhythm, no JVD, no murmur Abdomen: non tender, soft Neurologic/Psych: + disoriented (reorients easily; not aggitated today) Skin: no jaundice Laboratory Results Last 24 Hours Test 07/28/16 12:39 07/28/16 16:50 07/29/16 00:22 07/29/16 07:13 Hemoglobin 9.6 g/dL 9.3 g/dL 9.1 g/dL Hematocrit 28.4 % 27.2 % 26.4 % Prothrombin Time 12.0 SECONDS Prothromb Time International Ratio 1.1 Activated Partial Thromboplast Time 30.7 SECONDS Partial Thromboplastin Ratio 1.2 Stool Occult Blood NEGATIVE White Blood Count 12.07 K/uL 12.62 K/uL Red Blood Count 3.11 M/uL 3.02 M/uL Mean Corpuscular Volume 87.5 fL 87.4 fL Mean Corpuscular Hemoglobin 29.9 pg 30.1 pg Mean Corpuscular Hemoglobin Concent 34.2 g/dl 34.5 g/dl RDW Standard Deviation 46.4 fL 46.3 fL RDW Coefficient of Variation 14.4 % 14.3 % Platelet Count 200 K/uL 183 K/uL Mean Platelet Volume 8.1 fL 7.8 fL Sodium Level 146 mmol/L Potassium Level 3.9 mmol/L Chloride Level 113 mmol/L Carbon Dioxide Level 23 mmol/L Anion Gap 10.0 mmol/L Blood Urea Nitrogen 48 mg/dl Creatinine 1.90 mg/dl Est Creatinine Clear Calc Drug Dose 45.6 ml/min Estimated GFR () 40.5 Estimated GFR (Non- 34.9 BUN/Creatinine Ratio 25.5 Random Glucose 108 mg/dl Calcium Level 8.0 mg/dl Random Vancomycin Level 17.7 mcg/ml Test 07/29/16 09:00 Urine Color YELLOW Urine Appearance CLEAR Urine pH 5.5 Urine Specific [place] 1.020 Urine Protein 1+ Urine Glucose (UA) NEG Urine Ketones NEG Urine Occult Blood 3+ Urine Nitrite NEG Urine Bilirubin NEG Urine Urobilinogen NEG Urine Leukocyte Esterase TRACE Urine WBC (Auto) 5-10 /hpf Urine RBC (Auto) >30 /hpf Urine Hyaline Casts (Auto) 1-5 /lpf Urine Epithelial Cells (Auto) 5-10 /lpf Urine Bacteria (Auto) NEG Assessment and Plan Mr. Colbert is a 71 yr old male with a duodenal ulcer in the setting of recent knee replacement and femur fracture awaiting surgical repair. Plan: 1. Protonix drip x 48 more hrs then BID for 2 months then daily residential. 2. Could be on a soft diet from a GI perspective but will defer to primary hospitalist services. 3. From a GI perspective, best if no anticoagulation x 2 weeks. 4. GI will watch peripherally. ATTESTATION: I have performed a history and physical examination of this patient and reviewed the electronic record. Specifically, on physical examination there is no abdominal tenderness. Nausea and abdominal discomfort have resolved. I have discussed the case with SUKHJINDER Bullard. The above note reflects my findings, conclusions, and recommendations. Mahendra Quintanilla MD
[2016-07-29] MEDS: HYDROmorphone INJ 1 MG/ML SYR IV PRN (14:39)
--- NOTE | 2016-07-29 14:46 | ORTHOPEDIC PROGRESS NOTE ---
DATE: 07/29/2016 SUBJECTIVE: The patient is lying in bed and is awake and alert. He is oriented to person and place. He does have a PRODUCT SAF[employer]Y TEST ENGINEER with him as a one on one and apparently yesterday evening, the patient became quite confused and ended up pulling out his one IV and had a troublesome night. Later that night, he had developed a temperature of 38.5 and was noted to be also 37.9 around 2:00 in the morning. This started to drift down to 37 at one point and then came back at 37.8 at noon today. At that point in time, apparently his central line was removed and sent for culture of the tip. Blood cultures had been sent around midnight and the patient's surgery was then canceled for today by Dr. Segura. The patient was allowed to eat. Currently, he is much more alert and oriented than he was last night and remembers some of the things of the night. He does have some complaints about how rough some of the staff was who treated him last night; however, he is just hoping to get his femur fixed as soon as possible. He has no complaints of the femur and pain control is adequate unless they have to move the femur and then it becomes somewhat painful. His daughter is present and we are discussing the plans for hopeful ORIF tomorrow by Dr. Gomez pending medical clearance. OBJECTIVE: Currently were 37.8, pulse 56, BP was 123/83. He was 97% pulse oximetry on room air. I took the immobilizer off his right lower extremity and looked at his knee incision as well as his lower extremity. The cellulitis is clearing quite well and his daughter who was present states that it looks much, much better than it was before. He has some slight erythema at the distal portion of his incision and there is some slight erythema noted around the ankle; however, the rest of his lower extremity does look benign. He still does have some edema noted but he is nontender on palpation of the lower extremity but does have some slight tenderness noted on palpation of the ankle over the erythema itself. He continues to have the skin blisters noted over some of the initial toes of his right foot and then these are left intact. The immobilizer was then slid up to proper position with PRODUCT SAF[employer]Y TEST ENGINEER and myself and was put back on with minimal difficulty. The patient did experience some pain during this but was tolerating well. He does have sensation in his toes, but he is able to move his toes at this time actively. LABORATORY DATA: His hemoglobin is 9.1 today and BUN and creatinine are to continue to come down and are at 48 and 1.9. Sodium is 146 and potassium is 3.9. Magnesium remains at 2.5. ASSESSMENT: Distal right femur fracture status post right total knee arthroplasty. Acute right popliteal deep venous thrombosis, acute on chronic renal impairment, right lower extremity cellulitis, hypokalemia, hypomagnesemia, acute blood loss anemia, hypertension, and history of gout. PLAN: With the cancellation of surgery, we will go ahead and make him n.p.o. after midnight and await to hear from medicine service tomorrow to see if the patient will be cleared for surgery tomorrow with Dr. Gomez. He had an IVC filter placed for his acute right popliteal DVT. His right lower extremity cellulitis is resolving nicely. We appreciate medical coverage with the [facility] and the [facility] Gastroenterology team.
[2016-07-29] MEDS: ONDANSETRON INJ 2 MG/ML 2 ML VIAL IV PRN (14:51)
--- NOTE | 2016-07-29 17:02 | Progress Note ---
Internal Med Progress Note Date of Service: Jul 29, 2016. Provider Documentation: SUBJECTIVE: The patient was seen and examined No more confusion and nausea and or vomiting Has had fever last night PICC is out and tip sent for C/S Zosyn started Elliot better this morning OBJECTIVE: Vital Signs-as noted below Exam: General-no distress at rest Eyes-normal ENT-normal Neck-supple Lungs-Decreased breath sound bilaterally Heart-Regular,no murmur appreciated Abdomen-Benign,no masses,bowel sound present Extremities-Bilateral leg swelling Right more than the left Right leg redness with increased local temperature A few blisters at the distal end of the foot Neuro-AAOx3 Lab data as noted below. ASSESSMENT & PLAN: Febrile episode last night Temp >38 Blood cultures were taken and Zosyn added Catheter tip sent for C/S Clinically better this AM Surgery held for today Coffee ground Vomiting with abdominal pain Appreciate GI input EGD::Multiple Duodenal Ulcers with red spots Esophagitis and gastritis No active bleeding No anticoagulation for 3 weeks PPI Can go for surgery tomorrow Repeat EGD in 3 weeks before starting any Anticoagulation and or Aspirin Acute Delirium -completely resolved Received Ativan last night Condition got worse Likely has intolerance to Ativan Use Haldol instead of Ativan for any issue RIGHT FEMUR FRACTURE S/P Fall ,likely mechanical -significant comorbidities - ARF, acute DVT, cellulitis, anemia -obtain outpatient records - had preop clearance for surgery on 07/16 -Management as per Ortho -Likely surgery tomorrow ACUTE RIGHT POPLITEAL DVT -per ortho can not have anticoagulation at this time due to acute fracture and anticipated surgery -vascular surgery consulted for IVC filter -s/p IVC filter placement 07/27/16 ACUTE RENAL FAILURE on Chronic Renal Impairment -possibly multifactorial from recent surgery, NSAID use, poor po intake, infection, and other etiologies -Creatinine 4.3 on admission was 1.8 on 07/17 -gentle IVF hydration due to Edema of the legs -hold NSAIDs, Diuretics -avoid other nephrotoxins as able -Creatinine is improving RLE CELLULITIS with Blisters on foot -leukocytosis resolved, afebrile -blood cultures obtained at [place] [facility] -continue Vancomycin, pharmacy consulted for dosing HYPERKALEMIA -resolved, currently 4.9 -continue IVF hydration -repeat in AM -3.6 on 07/27/16 HYPERMAGNESEMIA Remains elevated Acute Blood Loss ANEMIA -hgb 8.5, possibly secondary to acute blood loss from recent TKA -no signs of active bleeding -check anemia profile -has low Iron -Hb dropped <8.0 -getting 1 Unit of PRBC HTN -soft BPs -continue BB with parameters -hold HCTZ, Lisinopril for JOHN GOUT -continue allopurinol RECENT RTKA -management per ortho CODE STATUS: FULL CODE DISPO:per ortho Vital Signs: Date Time Temp Pulse Resp B/P Pulse Ox O2 Delivery O2 Flow Rate FiO2 07/29/16 15:49 Room Air 07/29/16 15:05 36.8 07/29/16 13:43 56 07/29/16 12:58 37.8 66 18 123/83 97 Room Air 07/29/16 11:45 Room Air 07/29/16 08:00 Room Air 07/29/16 07:39 84 07/29/16 07:15 37.6 67 18 145/69 96 Room Air 07/29/16 04:00 Room Air 07/29/16 03:01 74 136/63 07/29/16 02:59 37.0 58 18 140/71 95 Room Air 07/29/16 02:39 37.7 74 18 136/63 98 Room Air 07/29/16 02:15 37.9 73 18 142/73 97 Room Air 07/29/16 01:43 37.3 120 18 149/71 96 Room Air 07/29/16 01:18 37.3 67 20 132/67 95 Room Air 07/29/16 00:00 Room Air 07/28/16 23:20 38.5 71 22 125/55 97 Room Air 07/28/16 20:26 69 134/70 07/28/16 20:00 Room Air 07/28/16 18:54 37.2 69 20 134/70 95 Room Air Lab Results: Results Past 24 Hours Test 07/29/16 00:22 07/29/16 07:13 07/29/16 09:00 Range/Units White Blood Count 12.07 12.62 4.8-10.8 K/uL Red Blood Count 3.11 3.02 4.7-6.1 M/uL Hemoglobin 9.3 9.1 14.0-18.0 g/dL Hematocrit 27.2 26.4 42-52 % Mean Corpuscular Volume 87.5 87.4 80-100 fL Mean Corpuscular Hemoglobin 29.9 30.1 25-34 pg Mean Corpuscular Hemoglobin Concent 34.2 34.5 32-36 g/dl RDW Standard Deviation 46.4 46.3 36.4-46.3 fL RDW Coefficient of Variation 14.4 14.3 11.5-14.5 % Platelet Count 200 183 130-400 K/uL Mean Platelet Volume 8.1 7.8 7.4-10.4 fL Sodium Level 146 136-145 mmol/L Potassium Level 3.9 3.5-5.1 mmol/L Chloride Level 113 98-107 mmol/L Carbon Dioxide Level 23 21-32 mmol/L Anion Gap 10.0 3-11 mmol/L Blood Urea Nitrogen 48 7-18 mg/dl Creatinine 1.90 0.60-1.40 mg/dl Est Creatinine Clear Calc Drug Dose 45.6 ml/min Estimated GFR () 40.5 Estimated GFR (Non- 34.9 BUN/Creatinine Ratio 25.5 10-20 Random Glucose 108 70-99 mg/dl Calcium Level 8.0 8.5-10.1 mg/dl Random Vancomycin Level 17.7 mcg/ml Urine Color YELLOW Urine Appearance CLEAR CLEAR Urine pH 5.5 4.5-7.5 Urine Specific [place] 1.020 1.000-1.030 Urine Protein 1+ NEG Urine Glucose (UA) NEG NEG Urine Ketones NEG NEG Urine Occult Blood 3+ NEG Urine Nitrite NEG NEG Urine Bilirubin NEG NEG Urine Urobilinogen NEG NEG Urine Leukocyte Esterase TRACE NEG Urine WBC (Auto) 5-10 0-5 /hpf Urine RBC (Auto) >30 0-4 /hpf Urine Hyaline Casts (Auto) 1-5 0-5 /lpf Urine Epithelial Cells (Auto) 5-10 0-5 /lpf Urine Bacteria (Auto) NEG NEG Microbiology Results 07/29/16 Blood Culture, Received Pending 07/29/16 Blood Culture, Received Pending 07/29/16 Catheter Tip Culture, Received Pending
[2016-07-30] VITALS (7 sets, daily range): BP systolic 137–160; BP diastolic 63–87; PULSE 52–67; TEMP 37.1–37.7; O2SAT 95–98
[2016-07-30] MEDS: METOPROLOL TARTRATE 1 MG/ML VIAL IV. SCH ×2 (01:43→07:55)
[2016-07-30] MEDS: PANTOprazole INJ 40 MG in DEXTROSE 5% 100ML IV SCH ×5 (02:36→23:21)
[2016-07-30] MEDS ORDERED: ALUMINUM/MAGNESIUM/SIMETH (MAALOX MAX) 30 ML UDC PO STA (04:31)
[2016-07-30 05:36] LABS: HEMATOCRIT 27.5 % (42-52); MEAN CELL VOLUME 89.3 fL (80-100); MEAN CORPUSCULAR HEMOGLOBIN 30.2 pg (25-34); MEAN CORPUSCULAR HGB CONC 33.8 g/dl (32-36); MEAN PLATELET VOLUME 8.3 fL (7.4-10.4); PLATELET COUNT 205 K/uL (130-400); RED BLOOD COUNT 3.08 M/uL (4.7-6.1); WHITE BLOOD COUNT 10.73 K/uL (4.8-10.8)
[2016-07-30] MEDS: PIPERACILL/TAZOBAC IV 4.5 GM in DEXTROSE 5% 100ML IV SCH ×3 (05:47→22:16)
[2016-07-30] MEDS: D5W AND 1/2NSS 1,000 ML IV SCH ×2 (05:47→18:41)
[2016-07-30 06:03] LABS: CALCIUM 7.8 mg/dl (8.5-10.1); CREATININE 1.7 mg/dl (0.60-1.40); POTASSIUM 3.7 mmol/L (3.5-5.1)
[2016-07-30] MEDS: HYDROmorphone INJ 1 MG/ML SYR IV PRN ×3 (07:54→23:36)
[2016-07-30] MEDS: VANCOMYCIN INJ 1,500 MG in SODIUM CHLORIDE 0.9% 500ML 500 ML IV SCH (07:54)
[2016-07-30] MEDS: ONDANSETRON INJ 2 MG/ML 2 ML VIAL IV PRN ×2 (08:01→19:01)
--- NOTE | 2016-07-30 12:13 | Progress Note ---
Internal Med Progress Note Date of Service: Jul 30, 2016. Provider Documentation: SUBJECTIVE: The patient was seen and examined No more confusion and nausea and or vomiting OBJECTIVE: Vital Signs-as noted below Exam: General-no distress at rest Eyes-normal ENT-normal Neck-supple Lungs-Decreased breath sound bilaterally Heart-Regular,no murmur appreciated Abdomen-Benign,no masses,bowel sound present Extremities-Bilateral leg swelling Right more than the left Right leg redness with increased local temperature A few blisters at the distal end of the foot Neuro-AAOx3 Lab data as noted below. ASSESSMENT & PLAN: Febrile episode last night Temp >38 Blood cultures-negative Zosyn added Catheter tip sent for C/S-pending Clinically better now Can have Surgery today Coffee ground Vomiting with abdominal pain Appreciate GI input EGD::Multiple Duodenal Ulcers with red spots Esophagitis and gastritis No active bleeding No anticoagulation for 3 weeks PPI Can go for surgery tomorrow Repeat EGD in 3 weeks before starting any Anticoagulation and or Aspirin No more episodes Acute Delirium -completely resolved Received Ativan last night Condition got worse Likely has intolerance to Ativan Use Haldol instead of Ativan for any issue RIGHT FEMUR FRACTURE S/P Fall ,likely mechanical -significant comorbidities - ARF, acute DVT, cellulitis, anemia -obtain outpatient records - had preop clearance for surgery on 07/16 -Management as per Ortho -Likely surgery today ACUTE RIGHT POPLITEAL DVT -per ortho can not have anticoagulation at this time due to acute fracture and anticipated surgery -vascular surgery consulted for IVC filter -s/p IVC filter placement 07/27/16 ACUTE RENAL FAILURE on Chronic Renal Impairment -possibly multifactorial from recent surgery, NSAID use, poor po intake, infection, and other etiologies -Creatinine 4.3 on admission was 1.8 on 07/17 -gentle IVF hydration due to Edema of the legs -hold NSAIDs, Diuretics -avoid other nephrotoxins as able -Creatinine is improving RLE CELLULITIS with Blisters on foot -leukocytosis resolved, afebrile -blood cultures obtained at [place] [facility] -continue Vancomycin, pharmacy consulted for dosing HYPERKALEMIA -resolved, currently 4.9 -continue IVF hydration -repeat in AM -3.6 on 07/27/16 HYPERMAGNESEMIA Remains elevated Acute Blood Loss ANEMIA -hgb 8.5, possibly secondary to acute blood loss from recent TKA -no signs of active bleeding -check anemia profile -has low Iron -Hb dropped <8.0 -received 2 units of PRBC -Hb >9 HTN -soft BPs -continue BB with parameters -hold HCTZ, Lisinopril for JOHN GOUT -continue allopurinol RECENT RTKA -management per ortho CODE STATUS: FULL CODE DISPO:per ortho Vital Signs: Date Time Temp Pulse Resp B/P Pulse Ox O2 Delivery O2 Flow Rate FiO2 07/30/16 08:11 37.4 58 19 154/68 95 Room Air 07/30/16 07:55 60 159/66 07/30/16 04:32 37.7 60 18 159/66 96 07/30/16 04:00 Room Air 07/30/16 00:01 97 Room Air 07/29/16 23:43 37.3 58 16 154/76 97 Room Air 07/29/16 20:00 Room Air 07/29/16 19:26 37.5 64 20 132/65 95 Room Air 07/29/16 15:49 Room Air 07/29/16 15:05 36.8 07/29/16 13:43 56 07/29/16 12:58 37.8 66 18 123/83 97 Room Air Lab Results: Results Past 24 Hours Test 07/30/16 05:16 Range/Units White Blood Count 10.73 4.8-10.8 K/uL Red Blood Count 3.08 4.7-6.1 M/uL Hemoglobin 9.3 14.0-18.0 g/dL Hematocrit 27.5 42-52 % Mean Corpuscular Volume 89.3 80-100 fL Mean Corpuscular Hemoglobin 30.2 25-34 pg Mean Corpuscular Hemoglobin Concent 33.8 32-36 g/dl RDW Standard Deviation 46.9 36.4-46.3 fL RDW Coefficient of Variation 14.2 11.5-14.5 % Platelet Count 205 130-400 K/uL Mean Platelet Volume 8.3 7.4-10.4 fL Sodium Level 145 136-145 mmol/L Potassium Level 3.7 3.5-5.1 mmol/L Chloride Level 113 98-107 mmol/L Carbon Dioxide Level 24 21-32 mmol/L Anion Gap 8.0 3-11 mmol/L Blood Urea Nitrogen 32 7-18 mg/dl Creatinine 1.70 0.60-1.40 mg/dl Est Creatinine Clear Calc Drug Dose 51.0 ml/min Estimated GFR () 46.3 Estimated GFR (Non- 40.0 BUN/Creatinine Ratio 19.0 10-20 Random Glucose 115 70-99 mg/dl Calcium Level 7.8 8.5-10.1 mg/dl
--- NOTE | 2016-07-30 12:30 | Orthopedic Progress Note ---
Orthopedic Progress Note Date of Service Jul 30, 2016. Subjective Additional Notes: Pt sleeping upon entering room but easily awoken. No new complaints today. Anxious to have surgery on his femur. Objective N/V intact, A&O x3, toes mobile Immobilizer on RLE. Date Time Temp Pulse Resp B/P Pulse Ox O2 Delivery O2 Flow Rate FiO2 07/30/16 08:11 37.4 58 19 154/68 95 Room Air 07/30/16 07:55 60 159/66 07/30/16 04:32 37.7 60 18 159/66 96 07/30/16 04:00 Room Air 07/30/16 00:01 97 Room Air 07/29/16 23:43 37.3 58 16 154/76 97 Room Air 07/29/16 20:00 Room Air 07/29/16 19:26 37.5 64 20 132/65 95 Room Air 07/29/16 15:49 Room Air 07/29/16 15:05 36.8 07/29/16 13:43 56 07/29/16 12:58 37.8 66 18 123/83 97 Room Air Laboratory Results 24 Hours: Test 07/30/16 05:16 Hematocrit 27.5 % Hemoglobin 9.3 g/dL Assessment & Plan Assessment: Distal Right Femur Fracture s/p R TKA ACUTE RIGHT POPLITEAL DVT - IVC filter placed ACUTE RENAL FAILURE on Chronic Renal Impairment - improving RLE CELLULITIS with Blisters on foot HYPERKALEMIA - resolved HYPERMAGNESEMIA Acute Blood Loss ANEMIA - Transfused 2 units HTN GOUT Plan: CLEARED FOR OR TODAY PER DR TERESA Inhouse Planning Pain Management: Oxycontin, Dilaudid, Oxy IR DVT Prophylaxis: TEDs, SCDs, other (IVC filter) Discharge Planning Discharge Planning: uncertain
[2016-07-30] MEDS ORDERED: POTASSIUM CHLR 10 MEQ / WTR 10 MEQ in PREMIXED WATER 100 ML IV ONE (13:30)
[2016-07-30] MEDS ORDERED: HydrALAZINE HCL 20 MG/ML VIAL IV. PRN (13:45)
--- NOTE | 2016-07-30 15:12 | CARDIOLOGY CONSULTATION ---
DATE OF CONSULTATION: 07/30/2016 DATE OF CONSULTATION: 07/30/2016. REASON FOR CONSULTATION: Bradycardia. HISTORY OF PRESENT ILLNESS: This is a 71-year-old male patient who has had a complex recent medical history. He has no significant cardiac history. He was treated for mild essential hypertension and GERD by his primary care physician. Recently he had a total knee replacement on the right. Prior to that surgery the patient states he underwent a stress test. He thinks it may have been at the [facility]. Although the stress test was negative and he was cleared for surgery he states he was placed on a new medicine which I believe may be metoprolol. The patient had his surgery on 07/16/2016 and was discharged home. He was receiving home physical therapy and nursing care. Approximately 2 days prior to admission, he noted some erythema and blisters on the right lower extremity. He went to the Emergency Department where he was evaluated and discharged. On the day of admission, he was in the bathroom and stood up. He fell onto his right side. He had immediate pain in his right lower extremity. The patient has a spiral fracture of the right femur. He also has a cellulitis of the right lower extremity. He was transported from [facility] for definitive care of his fracture. After arrival here, he was noted to have a DVT in the popliteal area of his lower extremity. He was not a candidate for anticoagulation due to the fracture and vascular surgery on 07/27/2016 placed IVC filter. The patient was to have surgery today but noted on the telemetry that he was in bradycardia. He has no complaints. He denies dizziness or lightheadedness. He has had no chest pain or shortness of breath. In reviewing the telemetry, he has had no heart block. His heart rhythm is a consistent sinus bradycardia which is most likely due to the metoprolol. That medication was discontinued. Other ongoing medical problems include acute on chronic renal failure with a creatinine of 4.3 and a persistent anemia with his last hemoglobin being 8.5. Despite all the above as mentioned, he is asymptomatic and in good spirits. He has no cardiac complaints currently. ALLERGIES: LORAZEPAM. PAST MEDICAL HISTORY: As outlined in history of chief complaint. In addition, the patient in the past has been treated for gout as well as GERD. SOCIAL HISTORY: He is a lifelong nonsmoker. FAMILY MEDICAL HISTORY: Noncontributory. REVIEW OF SYSTEMS: A 10-point review of systems is negative except for the history of chief complaint. PHYSICAL EXAMINATION: GENERAL: He is alert and oriented in no acute distress. VITAL SIGNS: Blood pressure is 160/75, pulse is regular at 58 beats per minute. He is afebrile. HEAD, EYES, EARS, NOSE, AND THROAT: He is normocephalic. Pupils are equal and reactive to light. Extraocular muscles are intact bilaterally. NECK: The neck veins are flat. Carotids have good upstrokes bilaterally without bruits. Thyroid is nonpalpable. RESPIRATORY: Breath sounds equal bilaterally and clear to auscultation. CARDIOVASCULAR: Heart has a regular rhythm. Normal S1, S2. No S3, S4. No cardiac rubs or murmurs. GASTROINTESTINAL: Abdomen is soft, nontender without organomegaly. EXTREMITIES: Free of edema, digit clubbing, or cyanosis. NEUROLOGIC: Grossly intact. SKIN: Warm to touch. LYMPH NODES: Negative to palpation. LABORATORY DATA: Hemoglobin today is 9.3. Potassium is 3.7, creatinine is 1.7. These have all improved since admission. IMPRESSION: 1. Bradycardia due to beta mercedes. 2. Fracture of the right femur. 3. Recent right total knee replacement. 4. Cellulitis and deep venous thrombosis of the right lower extremity status post IVC filter. 5. Acute on chronic renal failure, improving. 6. Anemia which is also improving. RECOMMENDATIONS: As outlined above, I believe that his bradycardia is due to the metoprolol which may have been started recently. It has already been discontinued and I suspect we will need no other treatment. The patient as mentioned above, had a stress test prior to his surgery and I will try to obtain those results.
[2016-07-30 15:47] LABS: LYME DISEASE AB IGG NEG (NEG); LYME DISEASE AB IGM NEG (NEG)
--- NOTE | 2016-07-30 18:17 | Anesthesiology Progress Note ---
Pre-OP Anesthesia Assessment Date of Note Jul 30, 2016. Review patient information reviewed, chart reviewed, labs reviewed, acceptable for surgery Notes Pt had sinus bradycardia today attributed to metoprolol. It is noted that on 07/14 he had dobutamine stress echo negative for ischemia at 100% MPHR. Renal function has significantly improved. I see no contraindications to proceeding with ORIF of right femur fracture. Pt is scheduled NPO after midnight tonight for tomorrow morning surgery. Would check CBC in AM and type and cross 2 units PRBCs. Discussed plan for SAB with pt who expressed understanding and signed informed consent.
[2016-07-31] VITALS (8 sets, daily range): BP systolic 117–162; BP diastolic 61–87; PULSE 54–77; TEMP 36.3–37.7; O2SAT 95–97
[2016-07-31] MEDS ORDERED: VANCOMYCIN TROUGH SCH (03:30)
[2016-07-31 04:03] LABS: HEMATOCRIT 27.3 % (42-52); MEAN CELL VOLUME 88.9 fL (80-100); MEAN CORPUSCULAR HEMOGLOBIN 30.3 pg (25-34); MEAN CORPUSCULAR HGB CONC 34.1 g/dl (32-36); MEAN PLATELET VOLUME 8.7 fL (7.4-10.4); PLATELET COUNT 215 K/uL (130-400); RED BLOOD COUNT 3.07 M/uL (4.7-6.1); WHITE BLOOD COUNT 11.39 K/uL (4.8-10.8)
[2016-07-31 04:24] LABS: BUN/CREATININE RATIO 17.3 (10-20); CALCIUM 7.8 mg/dl (8.5-10.1); CREATININE 1.5 mg/dl (0.60-1.40); POTASSIUM 3.7 mmol/L (3.5-5.1)
[2016-07-31] MEDS: HYDROmorphone INJ 1 MG/ML SYR IV PRN ×2 (04:40→14:10)
[2016-07-31] MEDS: VANCOMYCIN INJ 1,500 MG in SODIUM CHLORIDE 0.9% 500ML 500 ML IV SCH ×2 (04:41→23:59)
[2016-07-31] MEDS: PANTOprazole INJ 40 MG in DEXTROSE 5% 100ML IV SCH ×4 (04:41→19:45)
[2016-07-31] MEDS: PIPERACILL/TAZOBAC IV 4.5 GM in DEXTROSE 5% 100ML IV SCH ×3 (06:58→21:44)
[2016-07-31] MEDS ORDERED: ALBUMIN HUMAN 5% 12.5 GM/250 ML VIAL IV ONE (07:05)
[2016-07-31] MEDS ORDERED: BUPIVACAINE 0.5 % 5 MG/1 ML PF 10ML VIAL ONE (07:26)
[2016-07-31] MEDS ORDERED: LIDOCAINE HCL 2% 2 ML VIAL (20MG/ML) ONE (07:28)
[2016-07-31] MEDS ORDERED: PROPOFOL IV EMULSION 10 MG/ML 20 ML VIAL IV ONE ×2 (07:28→12:10)
[2016-07-31] MEDS ORDERED: FENTANYL CITRATE INJ 50 MCG/1 ML 2 ML VIAL ONE ×4 (07:28→12:35)
[2016-07-31] MEDS ORDERED: MIDAZOLAM HCL 1 MG/ML 2ML VIAL ONE ×2 (07:29)
[2016-07-31] MEDS ORDERED: BUPIVACAINE/EPINEPHRINE 0.5% MPF 1:200,000 30 ML VIAL ONE (07:51)
[2016-07-31] MEDS ORDERED: KETAMINE HCL INJ 50 MG/ML 10 ML VIAL ONE (08:05)
[2016-07-31] MEDS ORDERED: GLYCOPYRROLATE INJ 0.2 MG/ML VIAL ONE (09:28)
[2016-07-31] MEDS ORDERED: CALCIUM CHLORIDE 10% 10 ML SYR ONE (09:54)
[2016-07-31] MEDS ORDERED: POVIDONE-IODINE OP SOLN 30 ML BTL ONE (10:42)
[2016-07-31] MEDS ORDERED: BACITRACIN 50,000 UNITS IR ONE (11:00)
--- NOTE | 2016-07-31 11:23 | [facility] Post Operative Brief Note ---
Immediate Operative Summary Operative Date Jul 31, 2016. Pre-Operative Diagnosis Distal Right Femur Fracture status post Right Total Knee Arthroplasty Post-Operative Diagnosis Distal Right Femur Fracture status post Right Total Knee Arthroplasty Procedure(s) Performed Intramedullary Gera right femur Surgeon Dr. Shaan Gomez Senior Internet Sales Consultant Surgeon(s) Maria Elena Bryant PA-C Estimated Blood Loss 300mL Findings above Specimens A. Explanted hardware Drains 0 Anesthesia spinal Complication(s) None Disposition Recovery Room / PACU
[2016-07-31] MEDS ORDERED: ONDANSETRON INJ 2 MG/ML 2 ML VIAL IV PRN ×2 (11:30→12:30)
[2016-07-31] MEDS ORDERED: MAGNESIUM HYDROXIDE SUSP 30 ML UDC PO PRN (11:30)
[2016-07-31] MEDS ORDERED: METOCLOPRAMIDE HCL INJ 5 MG/ML 2 ML VIAL IV PRN (11:30)
--- NOTE | 2016-07-31 11:34 | DIAGNOSTIC IMAGING REPORT ---
INTRAOPERATIVE RADIOGRAPHS CLINICAL HISTORY: Open reduction and internal fixation of the right femur. Fluoroscopy time: 205 seconds. FINDINGS: 6 spot fluoroscopic views of the right femur are compared to radiographs dated 07/26/2016. An intramedullary nail has been placed in the right femur, transfixing a distracted and comminuted fracture of the distal femoral metadiaphysis. Alignment is improved, with persistent offset of the largest fragments. Small distracted fragments are noted. There are 2 cortical lag screws transfixing the proximal end of the nail and 2 cortical lag screw transfixing the distal end of the nail. A right knee arthroplasty is noted. IMPRESSION: Intraoperative images from open reduction and internal fixation of a distal right femoral fracture as above. Electronically signed by: Venkat Ramirez M.D. 07/31/2016 11:33 AM Dictated Date/Time: 07/31/2016 11:31 AM
[2016-07-31] MEDS ORDERED: EpHEDrine SULFATE INJ 50 MG/ML AMP ONE (12:10)
[2016-07-31] MEDS ORDERED: PHENYLEPHRINE HCL INJ 10 MG/ML VIAL ONE (12:10)
[2016-07-31] MEDS ORDERED: FENTANYL CITRATE INJ 50 MCG/1 ML 2 ML VIAL IV PRN (12:30)
[2016-07-31] MEDS ORDERED: LABETALOL HCL IV 5 MG/ML 20ML IV PRN (12:30)
[2016-07-31] MEDS ORDERED: ATROPINE SULFATE 0.1 MG/ML 5ML SYR IV PRN (12:30)
[2016-07-31] MEDS ORDERED: MEPERIDINE HCL 25 MG/ML CARP IV PRN (12:30)
[2016-07-31] MEDS ORDERED: EpHEDrine SULFATE INJ 50 MG/ML AMP IV PRN (12:30)
[2016-07-31] MEDS ORDERED: HYDROmorphone INJ 1 MG/ML SYR IV PRN (12:30)
[2016-07-31] MEDS ORDERED: HYDROmorphone INJ 2 MG/ML SYR/VIAL ONE (12:53)
--- NOTE | 2016-07-31 13:16 | OPERATIVE REPORT ---
DATE OF OPERATION: 07/31/2016 PREOPERATIVE DIAGNOSIS: Right knee periprosthetic femur fracture. POSTOPERATIVE DIAGNOSIS: Same. PROCEDURE: Open reduction and internal fixation right periprosthetic midshaft femur fracture with intramedullary nail. SURGEON: Dr. Gomez. SUPPORT SERVICES COORDINATOR: Maria Elena Bryant PA-C who was necessary for assistance of procedure with positioning, prepping, draping, retraction and closure. ANESTHESIA: Spinal. SPECIMENS: None. COMPLICATIONS: None. ESTIMATED BLOOD LOSS: 300 mL. INDICATIONS: The patient is a 71-year-old male who underwent an uncomplicated right total knee arthroplasty approximately 2 weeks ago. One week after his total knee, he was at home getting off the toilet, the leg got caught up underneath him and he fell. He sustained a mid to distal third femur fracture. The total knee was intact. Fracture did extend into the total knee. Upon presentation he had some cellulitis along the lower aspect of the tibia. The knee itself appeared to be okay. He also was found to have a DVT in that leg. An IVC filter was placed. He was in renal failure upon presentation. We allowed his kidney function to improve. He subsequently developed coffee-ground emesis and was suctioned approximately 600 mL of coffee-ground emesis from his stomach. He then following day started developing fevers, a triple lumen catheter that had been placed was removed, once his fevers resolved we planned for again trying to take him to the OR. We attempted to try to take him on Tuesday after he fractured on Tuesday, his kidney function was not amenable. Then had coffee-ground emesis on Tuesday and , was having temperatures and then we tried to perform this procedure on Tuesday and he developed arrhythmias. Currently, he has been stabilized, the arrhythmias seem to be more of a sinus bradycardia than anything but anesthesia felt comfortable proceeding with surgery. Risks, benefits, and alternatives of surgery including but not limited to infection, DVT, pain, stiffness, need for revision surgery, failure to relieve all symptoms, PE, , damage to blood vessels, damage to nerves, risks of anesthesia were discussed with the patient and he wished to proceed. DESCRIPTION OF PROCEDURE: The patient was identified, laterality was confirmed and marked. He received preoperative antibiotic as well as a spinal anesthetic. He was transferred to the operating room, placed in the supine position. The right lower extremity was prepped and draped in a sterile manner after the surgical ksenia from his total knee had been removed. I reopened his total knee incision, area appeared to be clean, no evidence of infection. He has some resolving hematoma that was to be expected at this stage postoperatively. I removed his previous polyethylene liner and then utilized a guide dandy to position dandy into the intramedullary canal of the femur. Then under fluoroscopic guidance we positioned the guide dandy across the fracture and pulled the leg out to length and this was sequentially reamed up to a size 14 and then measured and then placed a Synthes retrograde intramedullary nail. This was a 13 mm x 320 mm intramedullary nail. We impacted it to ensure that we are deep to the box so that the polyethylene post from his PS knee would not impinge and then placed 2 bicortical screws distally. We confirmed reduction in AP and lateral fluoroscopy views, had acceptable reduction of the fracture. I then made a longitudinal incision proximally over the tip of the nail, sharply incised the skin and bluntly dissected down to bone and then under fluoroscopic guidance placed 2 interlocking screws proximally. We confirmed screw length, the proximal screws were too long and were exchanged for shorter screws. The distal screw length was good. All the wounds were thoroughly irrigated. The knee incision Betadine soak was performed, then stab incisions laterally for the screws were closed with ksenia, proximal incision was closed with interrupted 2-0 Vicryl suture and ksenia. The arthrotomy of the total knee incision was closed with interrupted #1 Vicryl suture, subcutaneous tissues 2-0 Vicryl suture and skin with ksenia. Sterile dressing was applied. All needle and sponge counts were correct at the end of the procedure. The patient was transferred to the PACU in stable condition without apparent complication. I attest to the content of the Intraoperative Record and any orders documented therein. Any exceptio ns are noted below.
--- NOTE | 2016-07-31 13:18 | Anesthesiology Progress Note ---
Anesthesia Post Op Note Date & Time Jul 31, 2016 at 13:19 Vital Signs Pain Intensity: 8.0 Vital Signs Past 12 Hours Date Time Temp Pulse Resp B/P Pulse Ox O2 Delivery O2 Flow Rate FiO2 07/31/16 13:00 81 16 121/57 96 Nasal Cannula 2 07/31/16 12:50 86 18 132/81 98 Nasal Cannula 2 07/31/16 12:40 71 21 116/60 98 Nasal Cannula 2 07/31/16 12:30 64 16 132/62 100 Mask 10 07/31/16 12:20 71 20 123/68 99 Mask 10 07/31/16 12:10 59 12 138/57 100 Mask 10 07/31/16 12:04 36.4 70 20 135/68 100 Mask 10 07/31/16 07:54 36.9 54 18 162/87 95 Room Air 07/31/16 04:00 Room Air 07/31/16 03:58 36.9 55 22 133/61 97 Room Air Notes Mental Status: alert / awake / arousable, participated in evaluation Pt Amnestic to Procedure: Yes Nausea / Vomiting: adequately controlled Pain: adequately controlled Airway Patency, RR, SpO2: stable & adequate BP & HR: stable & adequate Hydration State: stable & adequate Neuraxial Anesthesia: was administered, sensory block is resolving Anesthetic Complications: no major complications apparent
--- NOTE | 2016-07-31 14:44 | Pharmacy Progress Note ---
Pharmacy Antibiotic Prog Note Date of Service: Jul 31, 2016. Subjective: The patient is currently receiving Vancomycin 1500mg IV q20h. The patient is currently on day #6 of IV therapy. Objective: Height (Feet): 5 Height (Inches): 7.00 Weight (Kilograms): 126.300 Levels: Item Value Date Time Random Vancomycin Level 23.6 mcg/ml 07/27/16 0526 Random Vancomycin Level 20.8 mcg/ml 07/28/16 0550 Random Vancomycin Level 17.7 mcg/ml 07/29/16 0713 Vancomycin Level Trough 18.9 mcg/ml 07/31/16 0335 Lab Results (24hrs): Laboratory Tests Test 07/31/16 03:35 BUN/Creatinine Ratio 17.3 Blood Urea Nitrogen 26 mg/dl Creatinine 1.50 mg/dl White Blood Count 11.39 K/uL Micro Results: Item Value Date Time MRSA DNA Surveillance Screen - Final Complete 07/26/16 2245 Nasal Specimen Negative for MRSA by DNA Probe Blood Culture - Preliminary Resulted 07/29/16 0010 Blood NO GROWTH TO DATE. Blood Culture - Preliminary Resulted 07/29/16 0018 Blood NO GROWTH TO DATE. Catheter Tip Culture - Final Complete 07/29/16 0125 Catheter Tip Central Venous Pressure Line NO GROWTH Recent Pertinent Medications: Item Value Date Time Vancomycin HCl 555 ml @ 200 mls/hr 07/26/16 1900 2750 mg/Sodium NOW ONCE/IV 07/26/16 2048 Chloride Vancomycin HCl 270 ml @ 125 mls/hr 07/27/16 1400 1000 mg/Sodium TODAY@1400 ONCE/IV 07/27/16 1421 Chloride Vancomycin HCl 270 ml @ 125 mls/hr 07/28/16 1400 1000 mg/Sodium TODAY@1400 ONCE/IV 07/28/16 1604 Chloride Vancomycin HCl 530 ml @ 200 mls/hr 07/29/16 1200 1500 mg/Sodium Q20H/IV 07/31/16 0441 Chloride Item Value Date Time Piperacillin Sod/ 120 ml @ 200 mls/hr 07/28/16 2345 Tazobactam Sod NOW STAT/IV 07/29/16 0028 4.5 gm/Dextrose Piperacillin Sod/ 120 ml @ 30 mls/hr 07/29/16 0600 Tazobactam Sod Q8H/IV 07/31/16 0658 4.5 gm/Dextrose Assessment & Plan: Vancomycin * 71 yo M admitted for R femur fracture s/p fall, RLE cellulitis s/p R TKA on 02/22 * Goal trough level: 15-20mcg/mL * Trough level drawn: 18.9mcg/mL --> Therapeutic * Continue: Vancomycin 1500mg IV q20h * Trough level recheck ordered for: 08/02/16 1600 dose Pharmacy will continue to follow and will adjust dose/frequency as necessary. Thank you
[2016-07-31] MEDS: D5W AND 1/2NSS 1,000 ML IV SCH ×2 (15:02→19:00)
[2016-07-31] MEDS ORDERED: NALOXONE HCL 0.4 MG/1 ML VIAL/CARP IV PRN (16:00)
[2016-07-31] MEDS: HYDROmorphone HCL 0.5MG/ML 50 ML CASSETTE IV PRN (16:39)
[2016-07-31] MEDS: SODIUM CHLORIDE 0.9% 1000ML 1,000 ML IV SCH (16:42)
--- NOTE | 2016-07-31 16:47 | Progress Note ---
Internal Med Progress Note Date of Service: Jul 31, 2016. Provider Documentation: SUBJECTIVE: The patient was seen and examined No more confusion and nausea and or vomiting Has had bradyarrhythmia with pauses 07/30/16 S/p Internal fixation of right femur 07/31/16 OBJECTIVE: Vital Signs-as noted below Exam: General-no distress at rest Eyes-normal ENT-normal Neck-supple Lungs-Decreased breath sound bilaterally Heart-Regular,no murmur appreciated Abdomen-Benign,no masses,bowel sound present Extremities-Bilateral leg swelling Right more than the left Right leg redness with increased local temperature A few blisters at the distal end of the foot Neuro-AAOx3 Lab data as noted below. ASSESSMENT & PLAN: RIGHT FEMUR FRACTURE S/P Fall ,likely mechanical -significant comorbidities - ARF, acute DVT, cellulitis, anemia -obtain outpatient records - had preop clearance for surgery on 07/16 -Management as per Ortho -S/P internal fixation of the right femur 07/31/16 -management as per ortho Bradyarrhythmia with Pauses Secondary to BB Appreciate Cardiology input No more episode Febrile episode Temp >38 Blood cultures-negative Zosyn added Catheter tip sent for C/S-negative Clinically better now No more fever -WCC niormalized Coffee ground Vomiting with abdominal pain Appreciate GI input EGD::Multiple Duodenal Ulcers with red spots Esophagitis and gastritis No active bleeding No anticoagulation for 3 weeks PPI Can go for surgery tomorrow Repeat EGD in 3 weeks before starting any Anticoagulation and or Aspirin No more episodes Acute Delirium -completely resolved Received Ativan last night Condition got worse Likely has intolerance to Ativan Use Haldol instead of Ativan for any issue ACUTE RIGHT POPLITEAL DVT -per ortho can not have anticoagulation at this time due to acute fracture and anticipated surgery -vascular surgery consulted for IVC filter -s/p IVC filter placement 07/27/16 ACUTE RENAL FAILURE on Chronic Renal Impairment -possibly multifactorial from recent surgery, NSAID use, poor po intake, infection, and other etiologies -Creatinine 4.3 on admission was 1.8 on 07/17 -gentle IVF hydration due to Edema of the legs -hold NSAIDs, Diuretics -avoid other nephrotoxins as able -Creatinine is improving RLE CELLULITIS with Blisters on foot -leukocytosis resolved, afebrile -blood cultures obtained at [place] [facility] -continue Vancomycin, pharmacy consulted for dosing HYPERKALEMIA -resolved, currently 4.9 -continue IVF hydration -repeat in AM -3.6 on 07/27/16 HYPERMAGNESEMIA Remains elevated Acute Blood Loss ANEMIA -hgb 8.5, possibly secondary to acute blood loss from recent TKA -no signs of active bleeding -check anemia profile -has low Iron -Hb dropped <8.0 -received 2 units of PRBC -Hb >9 HTN -soft BPs -continue BB with parameters -hold HCTZ, Lisinopril for JOHN GOUT -continue allopurinol RECENT RTKA -management per ortho CODE STATUS: FULL CODE DISPO:per ortho Vital Signs: Date Time Temp Pulse Resp B/P Pulse Ox O2 Delivery O2 Flow Rate FiO2 07/31/16 14:10 Room Air 07/31/16 13:30 36.8 71 20 116/60 95 Nasal Cannula 2 07/31/16 13:20 78 18 125/69 97 Nasal Cannula 2 07/31/16 13:10 65 15 120/68 97 Nasal Cannula 2 07/31/16 13:00 81 16 121/57 96 Nasal Cannula 2 07/31/16 12:50 86 18 132/81 98 Nasal Cannula 2 07/31/16 12:40 71 21 116/60 98 Nasal Cannula 2 07/31/16 12:30 64 16 132/62 100 Mask 10 07/31/16 12:20 71 20 123/68 99 Mask 10 07/31/16 12:10 59 12 138/57 100 Mask 10 07/31/16 12:04 36.4 70 20 135/68 100 Mask 10 07/31/16 07:54 36.9 54 18 162/87 95 Room Air 07/31/16 04:00 Room Air 07/31/16 03:58 36.9 55 22 133/61 97 Room Air 07/30/16 23:59 Room Air 07/30/16 22:45 37.4 53 20 137/63 97 Room Air 07/30/16 20:00 Room Air 07/30/16 19:27 37.1 63 20 145/75 98 Room Air Lab Results: Results Past 24 Hours Test 07/31/16 03:35 Range/Units White Blood Count 11.39 4.8-10.8 K/uL Red Blood Count 3.07 4.7-6.1 M/uL Hemoglobin 9.3 14.0-18.0 g/dL Hematocrit 27.3 42-52 % Mean Corpuscular Volume 88.9 80-100 fL Mean Corpuscular Hemoglobin 30.3 25-34 pg Mean Corpuscular Hemoglobin Concent 34.1 32-36 g/dl RDW Standard Deviation 46.0 36.4-46.3 fL RDW Coefficient of Variation 14.2 11.5-14.5 % Platelet Count 215 130-400 K/uL Mean Platelet Volume 8.7 7.4-10.4 fL Sodium Level 143 136-145 mmol/L Potassium Level 3.7 3.5-5.1 mmol/L Chloride Level 109 98-107 mmol/L Carbon Dioxide Level 25 21-32 mmol/L Anion Gap 9.0 3-11 mmol/L Blood Urea Nitrogen 26 7-18 mg/dl Creatinine 1.50 0.60-1.40 mg/dl Est Creatinine Clear Calc Drug Dose 58.2 ml/min Estimated GFR () 53.9 Estimated GFR (Non- 46.5 BUN/Creatinine Ratio 17.3 10-20 Random Glucose 103 70-99 mg/dl Calcium Level 7.8 8.5-10.1 mg/dl Vancomycin Level Trough 18.9 SEE COMMENT mcg/ml
[2016-07-31] MEDS: ACETAMINOPHEN 325 MG TAB PO PRN (21:45)
[2016-07-31] MEDS ORDERED: FUROSEMIDE INJ 40 MG in SYRINGE 0 ML IV STA (22:03)
[2016-07-31] MEDS ORDERED: POTASSIUM CHLORIDE 10 MEQ TABCR PO STA (22:03)
[2016-07-31] MEDS: LIDOCAINE HCL 2% JELLY 30 ML TUBE EXT PRN (23:16)
[2016-08-01] VITALS (10 sets, daily range): BP systolic 98–149; BP diastolic 61–87; PULSE 60–75; TEMP 36.6–37.6; O2SAT 94–98
[2016-08-01] MEDS: PANTOprazole INJ 40 MG in DEXTROSE 5% 100ML IV SCH ×2 (00:07→05:34)
[2016-08-01] MEDS: D5W AND 1/2NSS 1,000 ML IV SCH ×2 (05:05→19:24)
[2016-08-01] MEDS: PIPERACILL/TAZOBAC IV 4.5 GM in DEXTROSE 5% 100ML IV SCH (05:34)
[2016-08-01 06:14] LABS: HEMATOCRIT 27.9 % (42-52); MEAN CELL VOLUME 85.8 fL (80-100); MEAN CORPUSCULAR HEMOGLOBIN 29.8 pg (25-34); MEAN CORPUSCULAR HGB CONC 34.8 g/dl (32-36); MEAN PLATELET VOLUME 8.3 fL (7.4-10.4); PLATELET COUNT 190 K/uL (130-400); RED BLOOD COUNT 3.25 M/uL (4.7-6.1); WHITE BLOOD COUNT 12.82 K/uL (4.8-10.8)
[2016-08-01 06:51] LABS: BUN/CREATININE RATIO 15.1 (10-20); CALCIUM 7.7 mg/dl (8.5-10.1); CREATININE 1.7 mg/dl (0.60-1.40); POTASSIUM 3.7 mmol/L (3.5-5.1)
[2016-08-01] MEDS: MULTIVITAMIN TAB PO SCH (08:27)
--- NOTE | 2016-08-01 08:47 | Orthopedic Progress Note ---
Orthopedic Progress Note Date of Service Aug 01, 2016. Subjective Post OP Day: 1 Reports: feeling well, Denies: SOB, calf pain, chest pain, light headedness, nausea / vomiting Objective calves soft nontender, N/V intact, dressing C/D/I (prevena), A&O x3, toes mobile , hemovac drainage (100/50cc per shift) Date Time Temp Pulse Resp B/P Pulse Ox O2 Delivery O2 Flow Rate FiO2 08/01/16 07:15 36.7 63 18 116/69 98 08/01/16 04:00 95 Room Air 08/01/16 03:30 36.7 63 20 116/71 98 Room Air 08/01/16 00:00 95 Room Air 08/01/16 00:00 37.6 75 16 149/80 95 Room Air 95 07/31/16 19:59 37.7 61 18 117/70 96 Nasal Cannula 2.0 07/31/16 19:57 Room Air 07/31/16 16:10 37.3 77 20 143/71 97 Room Air 07/31/16 15:19 68 20 143/71 97 07/31/16 14:49 36.4 68 20 120/66 96 07/31/16 14:20 36.3 73 18 118/66 97 07/31/16 14:10 37.0 68 18 118/79 96 Room Air 07/31/16 14:10 Room Air 07/31/16 13:30 36.8 71 20 116/60 95 Nasal Cannula 2 07/31/16 13:20 78 18 125/69 97 Nasal Cannula 2 07/31/16 13:10 65 15 120/68 97 Nasal Cannula 2 07/31/16 13:00 81 16 121/57 96 Nasal Cannula 2 07/31/16 12:50 86 18 132/81 98 Nasal Cannula 2 07/31/16 12:40 71 21 116/60 98 Nasal Cannula 2 07/31/16 12:30 64 16 132/62 100 Mask 10 07/31/16 12:20 71 20 123/68 99 Mask 10 07/31/16 12:10 59 12 138/57 100 Mask 10 07/31/16 12:04 36.4 70 20 135/68 100 Mask 10 Laboratory Results 24 Hours: Test 08/01/16 05:45 Hematocrit 27.9 % Hemoglobin 9.7 g/dL Assessment & Plan Assessment: POD#1 sp ORIF right femur w retrograde nail/poly exchange ACUTE RIGHT POPLITEAL DVT - IVC filter placed ACUTE RENAL FAILURE on Chronic Renal Impairment - improving RLE CELLULITIS with Blisters on foot HYPERKALEMIA - resolved HYPERMAGNESEMIA Acute Blood Loss ANEMIA - Transfused 2 units HTN GOUT Plan: DC DRESSING/DRAIN TUESDAY PREVENA X 7 DAYS TTWB WITH [facility]- TYLENOL. WILL ADD DEVIN PRN. DVT PROPH. - CURRENTLY ON HEPARIN Inhouse Planning Pain Management: Oxycontin, Dilaudid, Oxy IR DVT Prophylaxis: TEDs, SCDs, other (IVC filter) Discharge Planning Discharge Planning: uncertain
--- NOTE | 2016-08-01 10:31 | Progress Note ---
Internal Med Progress Note Date of Service: Aug 01, 2016. Provider Documentation: SUBJECTIVE: The patient was seen and examined No more confusion and nausea and or vomiting Has had bradyarrhythmia with pauses 07/30/16 S/p Internal fixation of right femur 07/31/16 Has had some issue with catheter last night-resolved OBJECTIVE: Vital Signs-as noted below Exam: General-no distress at rest Eyes-normal ENT-normal Neck-supple Lungs-Decreased breath sound bilaterally Heart-Regular,no murmur appreciated Abdomen-Benign,no masses,bowel sound present Extremities-Bilateral leg swelling Right more than the left Right leg redness with increased local temperature A few blisters at the distal end of the foot Neuro-AAOx3 Lab data as noted below. ASSESSMENT & PLAN: RIGHT FEMUR FRACTURE S/P Fall ,likely mechanical -significant comorbidities - ARF, acute DVT, cellulitis, anemia -obtain outpatient records - had preop clearance for surgery on 07/16 -Management as per Ortho -S/P internal fixation of the right femur 07/31/16 -management as per ortho Bradyarrhythmia with Pauses Secondary to BB Appreciate Cardiology input No more episode and denies any symptoms Febrile episode Temp >38 Blood cultures-negative Zosyn added Catheter tip sent for C/S-negative Clinically better now No more fever -WCC niormalized Will discontinue Zosyn Coffee ground Vomiting with abdominal pain Appreciate GI input EGD::Multiple Duodenal Ulcers with red spots Esophagitis and gastritis No active bleeding No anticoagulation for 3 weeks PPI Can go for surgery tomorrow Repeat EGD in 3 weeks before starting any Anticoagulation and or Aspirin No more episodes Acute Delirium -completely resolved Received Ativan last night Condition got worse Likely has intolerance to Ativan Use Haldol instead of Ativan for any issue ACUTE RIGHT POPLITEAL DVT -per ortho can not have anticoagulation at this time due to acute fracture and anticipated surgery -vascular surgery consulted for IVC filter -s/p IVC filter placement 07/27/16 -no anticoagulation for 3 weeks ACUTE RENAL FAILURE on Chronic Renal Impairment -possibly multifactorial from recent surgery, NSAID use, poor po intake, infection, and other etiologies -Creatinine 4.3 on admission was 1.8 on 07/17 -gentle IVF hydration due to Edema of the legs -hold NSAIDs, Diuretics -avoid other nephrotoxins as able -Creatinine is improving and stable RLE CELLULITIS with Blisters on foot -leukocytosis resolved, afebrile -blood cultures obtained at [facility] -continue Vancomycin, pharmacy consulted for dosing HYPERKALEMIA -resolved, currently 4.9 -continue IVF hydration -repeat in AM -3.6 on 07/27/16 HYPERMAGNESEMIA Remains elevated Acute Blood Loss ANEMIA -hgb 8.5, possibly secondary to acute blood loss from recent TKA -no signs of active bleeding -check anemia profile -has low Iron -Hb dropped <8.0 -received 2 units of PRBC -Hb >9 HTN -soft BPs -continue BB with parameters -hold HCTZ, Lisinopril for JOHN GOUT -continue allopurinol RECENT RTKA -management per ortho CODE STATUS: FULL CODE DISPO:per ortho Will transfer to [place] Vital Signs: Date Time Temp Pulse Resp B/P Pulse Ox O2 Delivery O2 Flow Rate FiO2 08/01/16 07:15 36.7 63 18 116/69 98 08/01/16 04:00 95 Room Air 08/01/16 03:30 36.7 63 20 116/71 98 Room Air 08/01/16 00:00 95 Room Air 08/01/16 00:00 37.6 75 16 149/80 95 Room Air 95 07/31/16 19:59 37.7 61 18 117/70 96 Nasal Cannula 2.0 07/31/16 19:57 Room Air 07/31/16 16:10 37.3 77 20 143/71 97 Room Air 07/31/16 15:19 68 20 143/71 97 07/31/16 14:49 36.4 68 20 120/66 96 07/31/16 14:20 36.3 73 18 118/66 97 07/31/16 14:10 37.0 68 18 118/79 96 Room Air 07/31/16 14:10 Room Air 07/31/16 13:30 36.8 71 20 116/60 95 Nasal Cannula 2 07/31/16 13:20 78 18 125/69 97 Nasal Cannula 2 07/31/16 13:10 65 15 120/68 97 Nasal Cannula 2 07/31/16 13:00 81 16 121/57 96 Nasal Cannula 2 07/31/16 12:50 86 18 132/81 98 Nasal Cannula 2 07/31/16 12:40 71 21 116/60 98 Nasal Cannula 2 07/31/16 12:30 64 16 132/62 100 Mask 10 07/31/16 12:20 71 20 123/68 99 Mask 10 07/31/16 12:10 59 12 138/57 100 Mask 10 07/31/16 12:04 36.4 70 20 135/68 100 Mask 10 Lab Results: Results Past 24 Hours Test 08/01/16 05:45 Range/Units White Blood Count 12.82 4.8-10.8 K/uL Red Blood Count 3.25 4.7-6.1 M/uL Hemoglobin 9.7 14.0-18.0 g/dL Hematocrit 27.9 42-52 % Mean Corpuscular Volume 85.8 80-100 fL Mean Corpuscular Hemoglobin 29.8 25-34 pg Mean Corpuscular Hemoglobin Concent 34.8 32-36 g/dl RDW Standard Deviation 46.6 36.4-46.3 fL RDW Coefficient of Variation 14.9 11.5-14.5 % Platelet Count 190 130-400 K/uL Mean Platelet Volume 8.3 7.4-10.4 fL Sodium Level 141 136-145 mmol/L Potassium Level 3.7 3.5-5.1 mmol/L Chloride Level 107 98-107 mmol/L Carbon Dioxide Level 24 21-32 mmol/L Anion Gap 10.0 3-11 mmol/L Blood Urea Nitrogen 26 7-18 mg/dl Creatinine 1.70 0.60-1.40 mg/dl Est Creatinine Clear Calc Drug Dose 52.4 ml/min Estimated GFR () 46.3 Estimated GFR (Non- 40.0 BUN/Creatinine Ratio 15.1 10-20 Random Glucose 148 70-99 mg/dl Calcium Level 7.7 8.5-10.1 mg/dl
[2016-08-01] MEDS: HYDROmorphone HCL 0.5MG/ML 50 ML CASSETTE IV PRN ×2 (13:30→15:07)
[2016-08-01] MEDS: SODIUM CHLORIDE 0.9% 1000ML 1,000 ML IV SCH (14:58)
[2016-08-01] MEDS: VANCOMYCIN INJ 1,500 MG in SODIUM CHLORIDE 0.9% 500ML 500 ML IV SCH (20:26)
[2016-08-01] MEDS: PANTOprazole SOD 40 MG TAB PO SCH (20:35)
[2016-08-02] VITALS (7 sets, daily range): BP systolic 121–155; BP diastolic 67–77; PULSE 58–83; TEMP 36.9–37.8; O2SAT 96–97
[2016-08-02] MEDS: HYDROmorphone HCL 0.5MG/ML 50 ML CASSETTE IV PRN ×5 (01:42→22:51)
[2016-08-02 05:55] LABS: HEMATOCRIT 25.5 % (42-52); MEAN CELL VOLUME 84.2 fL (80-100); MEAN CORPUSCULAR HGB CONC 34.5 g/dl (32-36); MEAN PLATELET VOLUME 8.6 fL (7.4-10.4); PLATELET COUNT 177 K/uL (130-400); RED BLOOD COUNT 3.03 M/uL (4.7-6.1)
[2016-08-02 06:22] LABS: BUN/CREATININE RATIO 14.7 (10-20); CALCIUM 7.3 mg/dl (8.5-10.1); CREATININE 1.5 mg/dl (0.60-1.40); POTASSIUM 3.6 mmol/L (3.5-5.1)
--- NOTE | 2016-08-02 07:19 | Orthopedic Progress Note ---
Orthopedic Progress Note Date of Service Aug 02, 2016. Subjective Post OP Day: 2 Reports: feeling well, pain controlled w PO medications, Denies: SOB, calf pain , chest pain, complaints, light headedness, nausea / vomiting Additional Notes: Patient is feeling well and he has minimal pain at his knee. His only complaint is that of feeling bladder fullness and not able to urinate. He will get extreme pressure and have to call the nurse to urinate. Objective Date Time Temp Pulse Resp B/P Pulse Ox O2 Delivery O2 Flow Rate FiO2 08/02/16 03:09 37.2 64 18 155/77 96 Room Air 08/01/16 23:50 Room Air 08/01/16 23:02 36.7 64 18 117/87 98 Room Air 08/01/16 19:37 36.6 66 16 125/61 98 Room Air 08/01/16 17:00 Room Air 08/01/16 15:27 36.9 60 16 121/70 95 Room Air 08/01/16 13:30 37.0 75 17 123/70 97 Room Air 08/01/16 13:25 Room Air 08/01/16 12:21 37.0 63 18 98/66 94 Room Air 08/01/16 12:14 36.7 63 18 98 2.0 08/01/16 12:00 Room Air 08/01/16 08:30 Room Air Laboratory Results 24 Hours: Test 08/02/16 05:15 Hematocrit 25.5 % Hemoglobin 8.8 g/dL Assessment & Plan Assessment: POD#2 sp ORIF right femur w retrograde nail/poly exchange ACUTE RIGHT POPLITEAL DVT - IVC filter placed ACUTE RENAL FAILURE on Chronic Renal Impairment - improving RLE CELLULITIS with Blisters on foot HYPERKALEMIA - resolved HYPERMAGNESEMIA Acute Blood Loss ANEMIA - Transfused 2 units - H/H today of 8.8 and 25.5 HTN GOUT urinary retention Plan: DC DRESSING/DRAIN TUESDAY PREVENA X 7 DAYS TTWB WITH [facility]- TYLENOL. WILL ADD DEVIN PRN. DVT PROPH. - CURRENTLY ON HEPARIN Inhouse Planning Pain Management: Oxycontin, Dilaudid, Oxy IR DVT Prophylaxis: TEDs, SCDs, other (IVC filter) Discharge Planning Discharge Planning: uncertain
[2016-08-02] MEDS: PANTOprazole SOD 40 MG TAB PO SCH ×2 (09:04→20:55)
[2016-08-02] MEDS: MULTIVITAMIN TAB PO SCH (09:04)
[2016-08-02] MEDS: D5W AND 1/2NSS 1,000 ML IV SCH ×2 (09:04→23:30)
[2016-08-02] MEDS: ACETAMINOPHEN 325 MG TAB PO PRN ×2 (10:07→23:29)
--- NOTE | 2016-08-02 10:34 | Urology Consultation ---
History General Date of Service: Aug 02, 2016. Primary Care Physician: Malcom Yarbrough D.O. Pt seen a urologist before?: No History of Present Illness 71 year old male with urinary retention s/p TKA and POD#2 ORIF right femur. He underwent the RTKA on 07/16 and was doing well, unfortunately a week later he fell while getting off the toilet when trying to using the toilet paper morfin for assistance. Denies lightheadedness or dizziness then or now. Reviewed chart. Over his hospital stay he has been transfused with 2 units PRBCs, had right DVT with IVC filter placed, nephrotoxic meds held d/t acute renal failure- creatinines have trended downward. . He has had 2 stokes's placed for retention this stay. Urology is consulted for this issues. Pt reports his baseline urinary status prior to surgeries has been fine. Stream okay, no hesitancy, urgency or frequency. It is unclear why his flomax was held with last dose on 07/27. Imaging Imaging: [facility] Laboratory Last 24 Hours Test 08/02/16 05:15 White Blood Count 12.40 K/uL Red Blood Count 3.03 M/uL Hemoglobin 8.8 g/dL Hematocrit 25.5 % Mean Corpuscular Volume 84.2 fL Mean Corpuscular Hemoglobin 29.0 pg Mean Corpuscular Hemoglobin Concent 34.5 g/dl RDW Standard Deviation 45.3 fL RDW Coefficient of Variation 14.9 % Platelet Count 177 K/uL Mean Platelet Volume 8.6 fL Sodium Level 141 mmol/L Potassium Level 3.6 mmol/L Chloride Level 108 mmol/L Carbon Dioxide Level 24 mmol/L Anion Gap 9.0 mmol/L Blood Urea Nitrogen 22 mg/dl Creatinine 1.50 mg/dl Est Creatinine Clear Calc Drug Dose 59.4 ml/min Estimated GFR () 53.9 Estimated GFR (Non- 46.5 BUN/Creatinine Ratio 14.7 Random Glucose 102 mg/dl Calcium Level 7.3 mg/dl Current Inpatient Medications Medications (Trade) Dose Ordered Sig/Dwight Route Start Time Stop Time Status Last Admin Dose Admin Oxycodone HCl (Oxycontin Tab) 10 mg Q12 PO 07/26/16 21:00 08/09/16 20:59 Future Hold 07/27/16 08:48 10 MG Ondansetron HCl 4 mg 4 mg Q4H PRN IV 07/26/16 19:00 08/25/16 18:59 07/30/16 19:01 4 MG Dextrose/Sodium Chloride (D5W And 1/2nss) 1,000 ml @ 75 mls/hr [id number] IV 07/26/16 19:00 08/25/16 18:59 08/02/16 09:04 75 MLS/HR Vancomycin HCl (Consult) 1 ea UD PRN N/A 07/26/16 19:00 08/25/16 18:59 Allopurinol (Zyloprim Tab) 150 mg QAM PO 07/27/16 09:00 08/26/16 08:59 Future Hold 07/27/16 08:45 150 MG Metoprolol Tartrate (Lopressor Tab) 12.5 mg BID PO 07/27/16 09:00 08/26/16 08:59 Future Hold 07/27/16 08:46 12.5 MG Tamsulosin HCl (Flomax Cap) 0.4 mg DAILY PO 07/27/16 09:00 08/26/16 08:59 Future Hold 07/27/16 08:45 0.4 MG Trazodone HCl (Desyrel Tab) 100 mg HS PO 07/27/16 21:00 08/26/16 20:59 Future Hold Buspirone HCl (Buspar Tab) 10 mg HS PO 07/27/16 21:00 08/26/16 20:59 Future Hold Prazosin HCl (Prazosin) 2 mg HS PO 07/27/16 21:00 08/26/16 20:59 Future Hold Metoprolol Tartrate (Lopressor Iv) 2.5 mg Q6H IV. 07/28/16 02:00 08/27/16 01:59 Future Hold 07/30/16 07:55 2.5 MG Heparin Sodium (Porcine) 5 ml 5 ml PRN PRN FLUSH 07/29/16 00:30 08/28/16 00:29 Vancomycin HCl/ Sodium Chloride (Vancomycin Inj/ Nss 500ml) 530 ml @ 200 mls/hr Q20H IV 07/29/16 12:00 08/06/16 11:59 08/01/16 20:26 200 MLS/HR Hydralazine HCl (HydrALAZINE INJ) 10 mg Q6H PRN IV. 07/30/16 13:45 08/29/16 13:44 Magnesium Hydroxide (Milk Of Magnesia Susp) 30 ml Q6H PRN PO 07/31/16 11:30 08/30/16 11:29 Multivitamins (Multivitamin Tab) 1 tab QAM PO 08/01/16 09:00 08/31/16 08:59 08/02/16 09:04 1 TAB Ondansetron HCl (Zofran Inj) 4 mg Q6H PRN IV 07/31/16 11:30 08/30/16 11:29 Metoclopramide HCl (Reglan Inj) 10 mg Q6H PRN IV 07/31/16 11:30 08/30/16 11:29 Naloxone HCl (Narcan Inj) 0.1 mg Q5M PRN IV 07/31/16 16:00 08/30/16 15:59 Hydromorphone HCl 25 mg 25 mg PRN PRN IV 07/31/16 16:00 08/14/16 15:59 08/02/16 08:21 25 MG Sodium Chloride (Nss 1000ml) 1,000 ml @ 15 mls/hr Q24H IV 07/31/16 15:50 08/30/16 15:49 07/31/16 16:42 15 MLS/HR Acetaminophen (Tylenol Tab) 650 mg Q6H PRN PO 07/31/16 21:30 08/30/16 21:29 07/31/16 21:45 650 MG Lidocaine HCl (Xylocaine Jelly 2%) 1 ml Q4H PRN EXT 07/31/16 22:45 08/30/16 22:44 07/31/16 23:16 1 ML Oxycodone HCl (Roxicodone Immediate Rel Tab) 5 mg Q4 PRN PO 08/01/16 09:00 08/15/16 08:59 Pantoprazole Sodium (Protonix Tab) 40 mg BID PO 08/01/16 21:00 08/31/16 20:59 08/02/16 09:04 40 MG Labs were reviewed and are within normal limits unless listed below. Labs are available in the chart and at [facility] Past History GERD, gout, hypertension Past Surgical History: orthopedic surgery (ORIF right femur), TKR, tonsillectomy Social History Hx Tobacco Use In Past Year?: No Occupation status: retired Allergies Coded Allergies: Lorazepam (Verified Adverse Reaction, Severe, hallucinations/uncontrolable , 07/28/16) Medications Home Medications: Home Meds and Scripts Medications Dose Route/Sig Max Daily Dose Days Date Category Flomax (Tamsulosin Hcl) 0.4 Mg Cap 1 Cap PO DAILY 30 07/26/16 Reported Zofran (Ondansetron HCl) 8 Mg Tab 8 Mg PO Q8 PRN 07/17/16 Rx Tylenol Extra Strength (Acetaminophen) 500 Mg Tab 1,000 Mg PO Q8H 07/17/16 Rx Celebrex (Celecoxib) 200 Mg Cap 200 Mg PO BID 07/17/16 Rx Oxycodone HCl 5 Mg Tab 5-10 Mg PO Q4H PRN 07/17/16 Rx Oxycontin (Oxycodone HCl) 10 Mg Tabcr 10 Mg PO Q12 07/17/16 Rx Aspirin EC Low Dose (Aspirin) 81 Mg Ectab 81 Mg PO BID 30 07/17/16 Rx Lopressor (Metoprolol Tartrate) 25 Mg Tab 12.5 Mg PO BID 07/15/16 Reported [place] (Aspirin Effervescent) 1 Tab Tab 1 Tab PO PRN 06/21/16 Reported Mvi With Minerals (Multivitamins/Minerals) Tab 1 Tab PO QAM 06/21/16 Reported Trazodone (Trazodone HCl) 100 Mg Tab 100 Mg PO HS 06/21/16 Reported Prazosin (Prazosin HCl) 2 Mg Cap 2 Mg PO HS 06/21/16 Reported Roxicodone Ir (Oxycodone HCl) 5 Mg Tab 5 Mg PO Q6H PRN 06/21/16 Reported [Nystatin Powder] 1 Dose TOP PRN 06/21/16 Reported Zestril (Lisinopril) 20 Mg Tab 20 Mg PO QAM 06/21/16 Reported Hctz (Hydrochlorothiazide) 25 Mg Tab 25 Mg PO QAM 06/21/16 Reported Buspirone Hcl 10 Mg Tab 10 Mg PO HS 06/21/16 Reported Zyloprim (Allopurinol) 100 Mg Tab 150 Mg PO QAM 06/21/16 Reported Inpatient Medications: Current Inpatient Medications Medications (Trade) Dose Ordered Sig/Dwight Route Start Time Stop Time Status Last Admin Dose Admin Oxycodone HCl (Oxycontin Tab) 10 mg Q12 PO 07/26/16 21:00 08/09/16 20:59 Future Hold 07/27/16 08:48 10 MG Ondansetron HCl 4 mg 4 mg Q4H PRN IV 07/26/16 19:00 08/25/16 18:59 07/30/16 19:01 4 MG Dextrose/Sodium Chloride (D5W And 1/2nss) 1,000 ml @ 75 mls/hr [id number] IV 07/26/16 19:00 08/25/16 18:59 08/02/16 09:04 75 MLS/HR Vancomycin HCl (Consult) 1 ea UD PRN N/A 07/26/16 19:00 08/25/16 18:59 Allopurinol (Zyloprim Tab) 150 mg QAM PO 07/27/16 09:00 08/26/16 08:59 Future Hold 07/27/16 08:45 150 MG Metoprolol Tartrate (Lopressor Tab) 12.5 mg BID PO 07/27/16 09:00 08/26/16 08:59 Future Hold 07/27/16 08:46 12.5 MG Tamsulosin HCl (Flomax Cap) 0.4 mg DAILY PO 07/27/16 09:00 08/26/16 08:59 Future Hold 07/27/16 08:45 0.4 MG Trazodone HCl (Desyrel Tab) 100 mg HS PO 07/27/16 21:00 08/26/16 20:59 Future Hold Buspirone HCl (Buspar Tab) 10 mg HS PO 07/27/16 21:00 08/26/16 20:59 Future Hold Prazosin HCl (Prazosin) 2 mg HS PO 07/27/16 21:00 08/26/16 20:59 Future Hold Metoprolol Tartrate (Lopressor Iv) 2.5 mg Q6H IV. 07/28/16 02:00 08/27/16 01:59 Future Hold 07/30/16 07:55 2.5 MG Heparin Sodium (Porcine) 5 ml 5 ml PRN PRN FLUSH 07/29/16 00:30 08/28/16 00:29 Vancomycin HCl/ Sodium Chloride (Vancomycin Inj/ Nss 500ml) 530 ml @ 200 mls/hr Q20H IV 07/29/16 12:00 08/06/16 11:59 08/01/16 20:26 200 MLS/HR Hydralazine HCl (HydrALAZINE INJ) 10 mg Q6H PRN IV. 07/30/16 13:45 08/29/16 13:44 Magnesium Hydroxide (Milk Of Magnesia Susp) 30 ml Q6H PRN PO 07/31/16 11:30 08/30/16 11:29 Multivitamins (Multivitamin Tab) 1 tab QAM PO 08/01/16 09:00 08/31/16 08:59 08/02/16 09:04 1 TAB Ondansetron HCl (Zofran Inj) 4 mg Q6H PRN IV 07/31/16 11:30 08/30/16 11:29 Metoclopramide HCl (Reglan Inj) 10 mg Q6H PRN IV 07/31/16 11:30 08/30/16 11:29 Naloxone HCl (Narcan Inj) 0.1 mg Q5M PRN IV 07/31/16 16:00 08/30/16 15:59 Hydromorphone HCl 25 mg 25 mg PRN PRN IV 07/31/16 16:00 08/14/16 15:59 08/02/16 08:21 25 MG Sodium Chloride (Nss 1000ml) 1,000 ml @ 15 mls/hr Q24H IV 07/31/16 15:50 08/30/16 15:49 07/31/16 16:42 15 MLS/HR Acetaminophen (Tylenol Tab) 650 mg Q6H PRN PO 07/31/16 21:30 08/30/16 21:29 07/31/16 21:45 650 MG Lidocaine HCl (Xylocaine Jelly 2%) 1 ml Q4H PRN EXT 07/31/16 22:45 08/30/16 22:44 07/31/16 23:16 1 ML Oxycodone HCl (Roxicodone Immediate Rel Tab) 5 mg Q4 PRN PO 08/01/16 09:00 08/15/16 08:59 Pantoprazole Sodium (Protonix Tab) 40 mg BID PO 08/01/16 21:00 08/31/16 20:59 08/02/16 09:04 40 MG Review of Systems Review of Systems Constitutional: No chills, No fever, No frequent headaches Eyes: No blurred vision Neurological: No dizzy, No passing out Endocrine: No excessive thirst Gastrointestinal: No abdominal pain, No nausea, No vomiting Cardiovascular: No angina, No chest pain Respiratory: No shortness of breath, No wheezing Musculoskeletal: + see HPI Blood / Lymphatic: No bleed easily Male : + see HPI Physical Exam Vital Signs: Vital Signs Past 12 Hours Date Time Temp Pulse Resp B/P Pulse Ox O2 Delivery O2 Flow Rate FiO2 08/02/16 07:55 Room Air 08/02/16 07:48 37.8 69 16 142/74 96 Room Air 08/02/16 03:09 37.2 64 18 155/77 96 Room Air 08/01/16 23:50 Room Air 08/01/16 23:02 36.7 64 18 117/87 98 Room Air Physical Exam: General Appearance: WD/WN, no apparent distress ENT: hearing grossly normal Neck: no JVD Respiratory/Chest: no respiratory distress, no accessory muscle use Neurologic/Psychiatric: alert, normal mood/affect, oriented x 3 Skin: normal color, warm/dry Assessment & Plan Assessment & Plan Urinary retention Hx of BPH and 2 recent surgeries likely cause. Stokes intact- recommend keeping in for at least 7 days- he may have TOV at rehab facility. Recommend restarting flomax. If he is unable to pass his TOV in 7 days also recommend starting finasteride. Unsure of his length of stay in rehab- our office will call to set up follow up for 2 weeks. Thanks for the consult. No further management at this time. Please recall prn.
[2016-08-02] MEDS ORDERED: VANCOMYCIN TROUGH SCH (15:30)
[2016-08-02] MEDS: SODIUM CHLORIDE 0.9% 1000ML 1,000 ML IV SCH (15:50)
[2016-08-02] MEDS: VANCOMYCIN INJ 1,500 MG in SODIUM CHLORIDE 0.9% 500ML 500 ML IV SCH (16:03)
--- NOTE | 2016-08-02 16:37 | Progress Note ---
Internal Med Progress Note Date of Service: Aug 02, 2016. Provider Documentation: SUBJECTIVE: The patient was seen and examined No more confusion and nausea and or vomiting Has had bradyarrhythmia with pauses 07/30/16 S/p Internal fixation of right femur 07/31/16 had to put back the catheter in OBJECTIVE: Vital Signs-as noted below Exam: General-no distress at rest Eyes-normal ENT-normal Neck-supple Lungs-Decreased breath sound bilaterally Heart-Regular,no murmur appreciated Abdomen-Benign,no masses,bowel sound present Extremities-Bilateral leg swelling Right more than the left Right leg redness with increased local temperature A few blisters at the distal end of the foot Neuro-AAOx3 Lab data as noted below. ASSESSMENT & PLAN: RIGHT FEMUR FRACTURE S/P Fall ,likely mechanical -significant comorbidities - ARF, acute DVT, cellulitis, anemia -obtain outpatient records - had preop clearance for surgery on 07/16 -Management as per Ortho -S/P internal fixation of the right femur 07/31/16 -management as per ortho -PT/OT as per ortho Bradyarrhythmia with Pauses Secondary to BB Appreciate Cardiology input No more episode and denies any symptoms Remains stable No more Beta Blockers Febrile episode Temp >38 Blood cultures-negative Zosyn added Catheter tip sent for C/S-negative Clinically better now No more fever -WCC niormalized Will discontinue Zosyn Coffee ground Vomiting with abdominal pain Appreciate GI input EGD::Multiple Duodenal Ulcers with red spots Esophagitis and gastritis No active bleeding No anticoagulation for 3 weeks PPI Can go for surgery tomorrow Repeat EGD in 3 weeks before starting any Anticoagulation and or Aspirin No more episodes Acute Delirium -completely resolved Received Ativan last night Condition got worse Likely has intolerance to Ativan Use Haldol instead of Ativan for any issue ACUTE RIGHT POPLITEAL DVT -per ortho can not have anticoagulation at this time due to acute fracture and anticipated surgery -vascular surgery consulted for IVC filter -s/p IVC filter placement 07/27/16 -no anticoagulation for 3 weeks ACUTE RENAL FAILURE on Chronic Renal Impairment -possibly multifactorial from recent surgery, NSAID use, poor po intake, infection, and other etiologies -Creatinine 4.3 on admission was 1.8 on 07/17 -gentle IVF hydration due to Edema of the legs -hold NSAIDs, Diuretics -avoid other nephrotoxins as able -Creatinine is improving and stable-resolved RLE CELLULITIS with Blisters on foot -leukocytosis resolved, afebrile -blood cultures obtained at [facility] -continue Vancomycin, pharmacy consulted for dosing HYPERKALEMIA -resolved, currently 4.9 -continue IVF hydration -repeat in AM -3.6 on 07/27/16 HYPERMAGNESEMIA Remains elevated Acute Blood Loss ANEMIA -hgb 8.5, possibly secondary to acute blood loss from recent TKA -no signs of active bleeding -check anemia profile -has low Iron -Hb dropped <8.0 -received 2 units of PRBC -Hb 8.8 08/02/16 HTN -soft BPs -continue BB with parameters -hold HCTZ, Lisinopril for JOHN GOUT -continue allopurinol RECENT RTKA -management per ortho CODE STATUS: FULL CODE DISPO:per ortho Will transfer to [place] Medically stable Vital Signs: Date Time Temp Pulse Resp B/P Pulse Ox O2 Delivery O2 Flow Rate FiO2 08/02/16 14:57 36.9 83 18 121/67 96 Room Air 08/02/16 11:47 37.1 62 17 138/76 97 Room Air 08/02/16 10:16 96 Room Air 08/02/16 07:55 Room Air 08/02/16 07:48 37.8 69 16 142/74 96 Room Air 08/02/16 03:09 37.2 64 18 155/77 96 Room Air 08/01/16 23:50 Room Air 08/01/16 23:02 36.7 64 18 117/87 98 Room Air 08/01/16 19:37 36.6 66 16 125/61 98 Room Air 08/01/16 17:00 Room Air Lab Results: Results Past 24 Hours Test 08/02/16 05:15 08/02/16 15:50 Range/Units White Blood Count 12.40 4.8-10.8 K/uL Red Blood Count 3.03 4.7-6.1 M/uL Hemoglobin 8.8 14.0-18.0 g/dL Hematocrit 25.5 42-52 % Mean Corpuscular Volume 84.2 80-100 fL Mean Corpuscular Hemoglobin 29.0 25-34 pg Mean Corpuscular Hemoglobin Concent 34.5 32-36 g/dl RDW Standard Deviation 45.3 36.4-46.3 fL RDW Coefficient of Variation 14.9 11.5-14.5 % Platelet Count 177 130-400 K/uL Mean Platelet Volume 8.6 7.4-10.4 fL Sodium Level 141 136-145 mmol/L Potassium Level 3.6 3.5-5.1 mmol/L Chloride Level 108 98-107 mmol/L Carbon Dioxide Level 24 21-32 mmol/L Anion Gap 9.0 3-11 mmol/L Blood Urea Nitrogen 22 7-18 mg/dl Creatinine 1.50 0.60-1.40 mg/dl Est Creatinine Clear Calc Drug Dose 59.4 ml/min Estimated GFR () 53.9 Estimated GFR (Non- 46.5 BUN/Creatinine Ratio 14.7 10-20 Random Glucose 102 70-99 mg/dl Calcium Level 7.3 8.5-10.1 mg/dl Vancomycin Level Trough 18.9 SEE COMMENT mcg/ml
[2016-08-02] MEDS ORDERED: ZOLPIDEM TARTRATE 5 MG TAB PO PRN (17:15)
[2016-08-02] MEDS ORDERED: NURSING VERBAL MED ORDER ONE (17:15)
[2016-08-03 02:40] VITALS: BP 134/86; PULSE 63; TEMP 37.7; O2SAT 96
[2016-08-03 05:45] LABS: HEMATOCRIT 24.7 % (42-52); MEAN CELL VOLUME 84.9 fL (80-100); MEAN CORPUSCULAR HEMOGLOBIN 29.6 pg (25-34); MEAN CORPUSCULAR HGB CONC 34.8 g/dl (32-36); MEAN PLATELET VOLUME 8.5 fL (7.4-10.4); PLATELET COUNT 179 K/uL (130-400); RED BLOOD COUNT 2.91 M/uL (4.7-6.1); WHITE BLOOD COUNT 13.42 K/uL (4.8-10.8)
[2016-08-03] MEDS: HYDROmorphone HCL 0.5MG/ML 50 ML CASSETTE IV PRN ×3 (06:57→23:01)
--- NOTE | 2016-08-03 07:12 | Orthopedic Progress Note ---
Orthopedic Progress Note Date of Service Aug 03, 2016. Subjective Post OP Day: 3 Reports: feeling well, pain controlled w PO medications, using HAND LOOM WEAVER, Denies: SOB , calf pain, chest pain, complaints, light headedness, nausea / vomiting Objective calves soft nontender, capillary refill less than 2 sec., dressing C/D/I, A&O x3 , toes mobile Date Time Temp Pulse Resp B/P Pulse Ox O2 Delivery O2 Flow Rate FiO2 08/03/16 02:40 37.7 63 16 134/86 96 Room Air 08/02/16 23:20 Room Air 08/02/16 23:10 37.5 71 20 143/67 97 Room Air 08/02/16 20:45 37.1 58 16 133/74 97 Room Air 08/02/16 15:15 Room Air 08/02/16 14:57 36.9 83 18 121/67 96 Room Air 08/02/16 11:47 37.1 62 17 138/76 97 Room Air 08/02/16 10:16 96 Room Air 08/02/16 07:55 Room Air 08/02/16 07:48 37.8 69 16 142/74 96 Room Air Laboratory Results 24 Hours: Test 08/03/16 05:20 Hematocrit 24.7 % Hemoglobin 8.6 g/dL Assessment & Plan Assessment: POD#3 sp ORIF right femur w retrograde nail/poly exchange ACUTE RIGHT POPLITEAL DVT - IVC filter placed ACUTE RENAL FAILURE on Chronic Renal Impairment - improving RLE CELLULITIS with Blisters on foot HYPERKALEMIA - resolved HYPERMAGNESEMIA Acute Blood Loss ANEMIA - Transfused 2 units - H/H today of 8.8 and 25.5 HTN GOUT urinary retention - catheter in place draining well. Plan: PREVENA X 7 DAYS TTWB WITH [facility]- TYLENOL. WILL ADD DEVIN PRN. DVT PROPH. - CURRENTLY ON HEPARIN AWAITING INSURANCE APPROVAL FOR [facility] - ONCE APPROVED SHOULD BE ABLE TO BE DISCHARGED Inhouse Planning Pain Management: Oxycontin, Dilaudid, Oxy IR DVT Prophylaxis: TEDs, SCDs, other (IVC filter) Discharge Planning Discharge Planning: retirement facility ([facility])
[2016-08-03 07:30] VITALS: BP 126/73; PULSE 77; TEMP 37.8; O2SAT 93
[2016-08-03] MEDS: ACETAMINOPHEN 325 MG TAB PO PRN (07:49)
[2016-08-03] MEDS: LIDOCAINE HCL 2% JELLY 30 ML TUBE EXT PRN ×2 (07:50→17:32)
[2016-08-03] MEDS: PANTOprazole SOD 40 MG TAB PO SCH ×2 (09:19→19:59)
[2016-08-03] MEDS: MULTIVITAMIN TAB PO SCH (09:19)
[2016-08-03] MEDS: TAMSULOSIN HCL 0.4 MG CAP PO SCH (09:19)
--- NOTE | 2016-08-03 10:35 | Pharmacy Progress Note ---
Pharmacy Progress Note Date of Service Aug 03, 2016. Progress Note Assessment 71 year old M receiving Vancomycin for treatment of RLE cellulitis, possible bacteremia? Cultures negative to date. Day # 9 of antimicrobial therapy. Plan Vancomycin o Trough level of 18.9 mcg/mL is therapeutic. o Continue dose of 1500 mg IV every 20 hours o Goal trough level: 15 to 20 mcg/mL o No further labs to be ordered as patient is approaching 10 day stop tomorrow. If therapy extended pharmacy will order appropriate labs. Thank you for engaging the clinical pharmacy consult service in the care of this patient.
[2016-08-03 11:02] VITALS: TEMP 37
[2016-08-03] MEDS: VANCOMYCIN INJ 1,500 MG in SODIUM CHLORIDE 0.9% 500ML 500 ML IV SCH (12:01)
[2016-08-03] MEDS ORDERED: NURSING VERBAL MED ORDER ONE (12:15)
[2016-08-03] MEDS: D5W AND 1/2NSS 1,000 ML IV SCH (13:20)
[2016-08-03] MEDS: CALCIUM CARBONATE 500 MG CHEWABLE PO PRN ×2 (14:16→19:53)
--- NOTE | 2016-08-03 15:34 | Progress Note ---
Medicine Progress Note Date & Time of Visit: Aug 03, 2016 at 14:44. Subjective Pt was seen and examined Lying in bed with no distress with brother at bedtime Pt said that he feels fine he said that this morning he had a low grade fever He said that he has been having watery diarrhea which seems to improved today denies any chest pain, sob and palpitation. Objective Last 8 Hrs Date Time Temp Pulse Resp B/P Pulse Ox O2 Delivery O2 Flow Rate FiO2 08/03/16 11:02 37.0 08/03/16 07:40 Room Air 08/03/16 07:30 37.8 77 18 126/73 93 Room Air Physical Exam: General- Obese, no acute distress Head- atraumatic Eyes- PERRL, EOMI ENT- oropharynx clear Neck- supple, no JVD Lungs- No wheezing, poor air entry Heart- regular rhythm; no murmur Abdomen- normal bowel sounds, soft Extremities- + edema, no calf tenderness, Right leg erythema improved as per pt Neuro- alert, oriented x 3; PERRL, EOMI Skin- warm & dry Laboratory Results: Last 24 Hours Test 08/02/16 15:50 08/03/16 05:20 Vancomycin Level Trough 18.9 mcg/ml White Blood Count 13.42 K/uL Red Blood Count 2.91 M/uL Hemoglobin 8.6 g/dL Hematocrit 24.7 % Mean Corpuscular Volume 84.9 fL Mean Corpuscular Hemoglobin 29.6 pg Mean Corpuscular Hemoglobin Concent 34.8 g/dl RDW Standard Deviation 46.6 fL RDW Coefficient of Variation 15.0 % Platelet Count 179 K/uL Mean Platelet Volume 8.5 fL Assessment & Plan RIGHT FEMUR FRACTURE S/P Fall ,likely mechanical -significant comorbidities - ARF, acute DVT, cellulitis, anemia -Had preop clearance done as an outpatient for surgery on 07/16 -Management as per Ortho -S/P internal fixation of the right femur 07/31/16 -management as per ortho -PT/OT eval -Waiting for placement to rehab Bradycardia Secondary to BB Appreciate Cardiology input No more episode and denies any symptoms Remains stable No Beta Blockers Febrile episode Temp >38 Blood cultures-negative Was on zosyn for 5 days, then d/salena Catheter tip sent for C/S-negative Clinically better now Had a low grade fever this morning Check stool for Cdiff (since he has diarrhea) Coffee ground Vomiting associated with abdominal pain Appreciate GI input EGD::Multiple Duodenal Ulcers with red spots Esophagitis and gastritis No active bleeding No anticoagulation for 3 weeks on PPI will need to repeat EGD in 3 weeks before starting any Anticoagulation and or Aspirin No more episodes H/H 8.6 Stable Acute Delirium Possible related to Benzo Use Haldol instead of Ativan for any issue Resolved ACUTE RIGHT POPLITEAL DVT -No anticoagulation due to the surgery and due to recent episode of coffee ground emesis (recent EGD showed large duodenal ulcer) -s/p IVC filter placement 07/27/[address] Sharma -no anticoagulation for 3 weeks ACUTE RENAL FAILURE on Chronic Renal Impairment -possibly multifactorial from recent surgery, NSAID use, poor po intake, infection, and other etiologies -Creatinine 4.3 on admission. - Creatine was 1.8 on 07/17 -Will D/C IVF -hold NSAIDs, Diuretics -avoid nephrotoxins agents -Creatinine is 1.5 today - Resolved RLE CELLULITIS with Blisters on foot -leukocytosis resolved -blood cultures no growth -continue Vancomycin, pharmacy consulted for dosing -improved DIARRHEA check stool for Cdiff HYPERKALEMIA -resolved HYPERMAGNESEMIA Remains elevated ANEMIA possible due to acute blood loss -no signs of active bleeding -Iron profile checked resulted with low Iron level -received 4 units of PRBC during the hospital course so far -Hb 8.6 today -Monitor h/h and transfuse if hgb drops below 8 HTN -continue BB with parameters -hold HCTZ, Lisinopril for JOHN -Stable GOUT -continue allopurinol RECENT RTKA -management per ortho CODE STATUS: FULL CODE Current Inpatient Medications: Current Inpatient Medications Medications (Trade) Dose Ordered Sig/Dwight Route Start Time Stop Time Status Last Admin Dose Admin Oxycodone HCl 10 mg 10 mg Q12 PO 07/26/16 21:00 08/09/16 20:59 Future Hold 07/27/16 08:48 10 MG Dextrose/Sodium Chloride (D5W And 1/2nss) 1,000 ml @ 75 mls/hr [id number] IV 07/26/16 19:00 08/25/16 18:59 08/03/16 13:20 75 MLS/HR Vancomycin HCl (Consult) 1 ea UD PRN N/A 07/26/16 19:00 08/25/16 18:59 Allopurinol (Zyloprim Tab) 150 mg QAM PO 07/27/16 09:00 08/26/16 08:59 Future Hold 07/27/16 08:45 150 MG Metoprolol Tartrate (Lopressor Tab) 12.5 mg BID PO 07/27/16 09:00 08/26/16 08:59 Future Hold 07/27/16 08:46 12.5 MG Trazodone HCl (Desyrel Tab) 100 mg HS PO 07/27/16 21:00 08/26/16 20:59 Future Hold Buspirone HCl (Buspar Tab) 10 mg HS PO 07/27/16 21:00 08/26/16 20:59 Future Hold Prazosin HCl (Prazosin) 2 mg HS PO 07/27/16 21:00 08/26/16 20:59 Future Hold Metoprolol Tartrate (Lopressor Iv) 2.5 mg Q6H IV. 07/28/16 02:00 08/27/16 01:59 Future Hold 07/30/16 07:55 2.5 MG Heparin Sodium (Porcine) 5 ml 5 ml PRN PRN FLUSH 07/29/16 00:30 08/28/16 00:29 Vancomycin HCl/ Sodium Chloride (Vancomycin Inj/ Nss 500ml) 530 ml @ 200 mls/hr Q20H IV 07/29/16 12:00 08/04/16 23:59 08/03/16 12:01 200 MLS/HR Hydralazine HCl (HydrALAZINE INJ) 10 mg Q6H PRN IV. 07/30/16 13:45 08/29/16 13:44 Magnesium Hydroxide (Milk Of Magnesia Susp) 30 ml Q6H PRN PO 07/31/16 11:30 08/30/16 11:29 Multivitamins (Multivitamin Tab) 1 tab QAM PO 08/01/16 09:00 08/31/16 08:59 08/03/16 09:19 1 TAB Ondansetron HCl (Zofran Inj) 4 mg Q6H PRN IV 07/31/16 11:30 08/30/16 11:29 08/02/16 12:52 4 MG Metoclopramide HCl (Reglan Inj) 10 mg Q6H PRN IV 07/31/16 11:30 08/30/16 11:29 Naloxone HCl (Narcan Inj) 0.1 mg Q5M PRN IV 07/31/16 16:00 08/30/16 15:59 Hydromorphone HCl 25 mg 25 mg PRN PRN IV 07/31/16 16:00 08/14/16 15:59 08/03/16 06:57 25 MG Sodium Chloride (Nss 1000ml) 1,000 ml @ 15 mls/hr Q24H IV 07/31/16 15:50 08/30/16 15:49 07/31/16 16:42 15 MLS/HR Acetaminophen (Tylenol Tab) 650 mg Q6H PRN PO 07/31/16 21:30 08/30/16 21:29 08/03/16 07:49 650 MG Lidocaine HCl (Xylocaine Jelly 2%) 1 ml Q4H PRN EXT 07/31/16 22:45 08/30/16 22:44 08/03/16 07:50 1 ML Oxycodone HCl (Roxicodone Immediate Rel Tab) 5 mg Q4 PRN PO 08/01/16 09:00 08/15/16 08:59 Pantoprazole Sodium (Protonix Tab) 40 mg BID PO 08/01/16 21:00 08/31/16 20:59 08/03/16 09:19 40 MG Tamsulosin HCl (Flomax Cap) 0.4 mg QAM PO 08/03/16 09:00 09/02/16 08:59 08/03/16 09:19 0.4 MG Zolpidem Tartrate (Ambien Tab) 5 mg HS PRN PO 08/02/16 17:15 09/01/16 17:14 08/02/16 23:06 5 MG Calcium Carbonate (Tums Chew Tab) 500-1,000 MG (1-2 TABS) Q6H PRN PO 08/03/16 12:30 09/02/16 12:29 08/03/16 14:16 1,000 MG
[2016-08-03 18:50] VITALS: BP 123/67; PULSE 82; TEMP 36.8; O2SAT 91
[2016-08-03] MEDS: SODIUM CHLORIDE 0.9% 1000ML 1,000 ML IV SCH (19:54)
[2016-08-03 23:26] VITALS: BP 134/72; PULSE 67; TEMP 37.9; O2SAT 98
[2016-08-04] VITALS (7 sets, daily range): BP systolic 126–150; BP diastolic 56–84; PULSE 60–71; TEMP 36.9–37.5; O2SAT 96–100
[2016-08-04] MEDS: ACETAMINOPHEN 325 MG TAB PO PRN (00:35)
[2016-08-04] MEDS: CALCIUM CARBONATE 500 MG CHEWABLE PO PRN ×2 (01:28→14:14)
[2016-08-04] MEDS: HYDROmorphone HCL 0.5MG/ML 50 ML CASSETTE IV PRN ×2 (06:53→11:09)
[2016-08-04 06:56] LABS: HEMATOCRIT 26.2 % (42-52); MEAN CORPUSCULAR HEMOGLOBIN 28.6 pg (25-34); MEAN CORPUSCULAR HGB CONC 32.8 g/dl (32-36); MEAN PLATELET VOLUME 8.4 fL (7.4-10.4); PLATELET COUNT 210 K/uL (130-400); RED BLOOD COUNT 3.01 M/uL (4.7-6.1); WHITE BLOOD COUNT 12.42 K/uL (4.8-10.8)
[2016-08-04 07:31] LABS: BUN/CREATININE RATIO 16.5 (10-20); CALCIUM 7.8 mg/dl (8.5-10.1); CREATININE 1.2 mg/dl (0.60-1.40); MAGNESIUM 1.6 mg/dl (1.8-2.4); POTASSIUM 3.8 mmol/L (3.5-5.1)
[2016-08-04] MEDS: MULTIVITAMIN TAB PO SCH (07:35)
[2016-08-04] MEDS: TAMSULOSIN HCL 0.4 MG CAP PO SCH (07:35)
[2016-08-04] MEDS: PANTOprazole SOD 40 MG TAB PO SCH ×2 (07:35→20:16)
[2016-08-04] MEDS: VANCOMYCIN INJ 1,500 MG in SODIUM CHLORIDE 0.9% 500ML 500 ML IV SCH (07:35)
[2016-08-04] MEDS ORDERED: ESZOPICLONE 1 MG TAB PO PRN (12:15)
[2016-08-04] MEDS ORDERED: HYDROmorphone INJ 1 MG/ML SYR IV PRN (12:15)
--- NOTE | 2016-08-04 12:15 | Orthopedic Progress Note ---
Orthopedic Progress Note Date of Service Aug 04, 2016. Subjective Post OP Day: 4 Reports: feeling well, using DELIVERER OUTSIDE, Denies: SOB, calf pain, chest pain, complaints , light headedness, nausea / vomiting Objective calves soft nontender, N/V intact, capillary refill less than 2 sec., dressing C /D/I, A&O x3, toes mobile Date Time Temp Pulse Resp B/P Pulse Ox O2 Delivery O2 Flow Rate FiO2 08/04/16 08:34 98 Room Air 08/04/16 08:10 37.4 65 20 130/78 98 Room Air 08/04/16 07:30 Room Air 08/04/16 03:30 36.9 61 18 150/75 98 Room Air 08/04/16 00:10 Room Air 08/03/16 23:26 37.9 67 16 134/72 98 Room Air 08/03/16 18:50 36.8 82 18 123/67 91 Room Air 08/03/16 16:00 Room Air Laboratory Results 24 Hours: Test 08/04/16 06:35 Hematocrit 26.2 % Hemoglobin 8.6 g/dL Assessment & Plan Assessment: POD #4 sp ORIF right femur w retrograde nail/poly exchange -awaiting rehab placement ACUTE RENAL FAILURE on Chronic Renal Impairment - improving RLE CELLULITIS with Blisters on foot Diarrhea- states BM slightly more formed today, medicine to check stool for Cdiff urinary retention - catheter in place draining well. Insomnia- didn't feel ambien worked, will d/c and try Lunesta Coffee ground Vomiting associated with abdominal pain EGD showing Multiple Duodenal Ulcers with red spots, no active bleeding, recommending no anticoagulants for 3 weeks -recommending repeat EGD in 3 weeks before starting any Anticoagulation and or Aspirin -H/H 8.6 ACUTE RIGHT POPLITEAL DVT -No anticoagulation due to the surgery and due to recent episode of coffee ground emesis (recent EGD showed large duodenal ulcer) -s/p IVC filter placement 07/27/[address] Sharma -no anticoagulation for 3 weeks ANEMIA possible due to acute blood loss -no signs of active bleeding -Has received 4 units of PRBC during the hospital course so far -Hb 8.6 today -Monitor h/h and transfuse if hgb drops below 8 HTN GOUT Plan: PREVENA X 7 DAYS TTWB WITH [facility] PAIN CONTROL- will d/c DELIVERER OUTSIDE and continue regimen otherwise, will add IV Dilaudid for break through pain AWAITING INSURANCE APPROVAL FOR [facility] Discharge Planning Discharge Planning: senior care facility ([facility])
[2016-08-04] MEDS: MAGNESIUM SULFATE 1GM / D5W 1 GM in PREMIXED IN D5W 100 ML IV SCH ×2 (12:33→13:52)
[2016-08-04] MEDS: OXYCODONE HCL IR 5 MG TAB (IMMEDIATE RELEASE) PO PRN ×2 (14:13→20:17)
--- NOTE | 2016-08-04 18:53 | Progress Note ---
Medicine Progress Note Date & Time of Visit: Aug 04, 2016 at 18:48. Subjective Pt was seen and examined lying in bed comfortable watching TV with brother at bedside Pt said that he feels fine he said that stool is getting form denies any chest pain, palpitation, dizziness and sob Objective Last 8 Hrs Date Time Temp Pulse Resp B/P Pulse Ox O2 Delivery O2 Flow Rate FiO2 08/04/16 18:18 36.9 08/04/16 15:20 37.2 71 17 128/56 96 Room Air 08/04/16 12:27 37.1 60 16 126/84 100 Room Air 08/04/16 12:00 Room Air Physical Exam: General- Obese, no acute distress Head- atraumatic Eyes- PERRL, EOMI ENT- oropharynx clear Neck- supple, no JVD Lungs- No wheezing, poor air entry Heart- regular rhythm; no murmur Abdomen- normal bowel sounds, soft Extremities- + edema, no calf tenderness, Right leg erythema improved as per pt Neuro- alert, oriented x 3; PERRL, EOMI Skin- warm & dry Laboratory Results: Last 24 Hours Test 08/04/16 06:35 White Blood Count 12.42 K/uL Red Blood Count 3.01 M/uL Hemoglobin 8.6 g/dL Hematocrit 26.2 % Mean Corpuscular Volume 87.0 fL Mean Corpuscular Hemoglobin 28.6 pg Mean Corpuscular Hemoglobin Concent 32.8 g/dl RDW Standard Deviation 48.3 fL RDW Coefficient of Variation 15.1 % Platelet Count 210 K/uL Mean Platelet Volume 8.4 fL Sodium Level 143 mmol/L Potassium Level 3.8 mmol/L Chloride Level 111 mmol/L Carbon Dioxide Level 24 mmol/L Anion Gap 8.0 mmol/L Blood Urea Nitrogen 20 mg/dl Creatinine 1.20 mg/dl Est Creatinine Clear Calc Drug Dose 74.3 ml/min Estimated GFR () 70.6 Estimated GFR (Non- 60.9 BUN/Creatinine Ratio 16.5 Random Glucose 92 mg/dl Calcium Level 7.8 mg/dl Magnesium Level 1.6 mg/dl Assessment & Plan RIGHT FEMUR FRACTURE S/P Fall ,likely mechanical -significant comorbidities - ARF, acute DVT, cellulitis, anemia -Had preop clearance done as an outpatient for surgery on 07/16 -Management as per Ortho -S/P internal fixation of the right femur 07/31/16 -management as per ortho -PT/OT eval -Waiting for placement to rehab Bradycardia Secondary to BB Appreciate Cardiology input No more episode and denies any symptoms No Beta Blockers Stable Febrile episode Temp >38 Blood cultures-negative Was on zosyn for 5 days, then d/salena Catheter tip sent for C/S-negative Clinically better now afebrile for 24hrs Coffee ground Vomiting associated with abdominal pain Appreciate GI input EGD::Multiple Duodenal Ulcers with red spots Esophagitis and gastritis No active bleeding No anticoagulation for 3 weeks on PPI will need to repeat EGD in 3 weeks before starting any Anticoagulation and or Aspirin No more episodes H/H 8.6 Stable Low Magnesium Mg replaced continue monitor Acute Delirium Possible related to Benzo Use Haldol instead of Ativan for any issue Resolved ACUTE RIGHT POPLITEAL DVT -No anticoagulation due to the surgery and due to recent episode of coffee ground emesis (recent EGD showed large duodenal ulcer) -s/p IVC filter placement 07/27/[address] Sharma -no anticoagulation for 3 weeks ACUTE RENAL FAILURE on Chronic Renal Impairment -possibly multifactorial from recent surgery, NSAID use, poor po intake, infection, and other etiologies -Creatinine 4.3 on admission. - Creatine was 1.8 on 07/17 -Will D/C IVF -hold NSAIDs, Diuretics -avoid nephrotoxins agents -Creatinine is 1.5 today - Resolved RLE CELLULITIS with Blisters on foot -leukocytosis resolved -blood cultures no growth -continue Vancomycin, pharmacy consulted for dosing -improved INSOMNIA Ambien D/C, Lunesta was started will resume the BuSpar as well DIARRHEA improved HYPERKALEMIA -resolved HYPERMAGNESEMIA resolved ANEMIA possible due to acute blood loss -no signs of active bleeding -Iron profile checked resulted with low Iron level -received 4 units of PRBC during the hospital course so far -Hb 8.6 today -Monitor h/h and transfuse if hgb drops below 8 HTN -continue BB with parameters -hold HCTZ, Lisinopril for JOHN -Stable GOUT -continue allopurinol RECENT RTKA -management per ortho CODE STATUS: FULL CODE Current Inpatient Medications: Current Inpatient Medications Medications (Trade) Dose Ordered Sig/Dwight Route Start Time Stop Time Status Last Admin Dose Admin Oxycodone HCl (Oxycontin Tab) 10 mg Q12 PO 07/26/16 21:00 08/09/16 20:59 Future Hold 07/27/16 08:48 10 MG Vancomycin HCl (Consult) 1 ea UD PRN N/A 07/26/16 19:00 08/25/16 18:59 Allopurinol (Zyloprim Tab) 150 mg QAM PO 07/27/16 09:00 08/26/16 08:59 Future Hold 07/27/16 08:45 150 MG Metoprolol Tartrate (Lopressor Tab) 12.5 mg BID PO 07/27/16 09:00 08/26/16 08:59 Future Hold 07/27/16 08:46 12.5 MG Trazodone HCl (Desyrel Tab) 100 mg HS PO 07/27/16 21:00 08/26/16 20:59 Future Hold Buspirone HCl (Buspar Tab) 10 mg HS PO 07/27/16 21:00 08/26/16 20:59 Future Hold Prazosin HCl (Prazosin) 2 mg HS PO 07/27/16 21:00 08/26/16 20:59 Future Hold Metoprolol Tartrate (Lopressor Iv) 2.5 mg Q6H IV. 07/28/16 02:00 08/27/16 01:59 Future Hold 07/30/16 07:55 2.5 MG Heparin Sodium (Porcine) 5 ml 5 ml PRN PRN FLUSH 07/29/16 00:30 08/28/16 00:29 Vancomycin HCl/ Sodium Chloride (Vancomycin Inj/ Nss 500ml) 530 ml @ 200 mls/hr Q20H IV 07/29/16 12:00 08/04/16 23:59 08/04/16 07:35 200 MLS/HR Hydralazine HCl (HydrALAZINE INJ) 10 mg Q6H PRN IV. 07/30/16 13:45 08/29/16 13:44 Magnesium Hydroxide (Milk Of Magnesia Susp) 30 ml Q6H PRN PO 07/31/16 11:30 08/30/16 11:29 Multivitamins (Multivitamin Tab) 1 tab QAM PO 08/01/16 09:00 08/31/16 08:59 08/04/16 07:35 1 TAB Ondansetron HCl (Zofran Inj) 4 mg Q6H PRN IV 07/31/16 11:30 08/30/16 11:29 08/02/16 12:52 4 MG Metoclopramide HCl (Reglan Inj) 10 mg Q6H PRN IV 07/31/16 11:30 08/30/16 11:29 Acetaminophen (Tylenol Tab) 650 mg Q6H PRN PO 07/31/16 21:30 08/30/16 21:29 08/04/16 00:35 650 MG Lidocaine HCl (Xylocaine Jelly 2%) 1 ml Q4H PRN EXT 07/31/16 22:45 08/30/16 22:44 08/03/16 17:32 1 ML Oxycodone HCl (Roxicodone Immediate Rel Tab) 5 mg Q4 PRN PO 08/01/16 09:00 08/15/16 08:59 08/04/16 14:13 5 MG Pantoprazole Sodium (Protonix Tab) 40 mg BID PO 08/01/16 21:00 08/31/16 20:59 08/04/16 07:35 40 MG Tamsulosin HCl (Flomax Cap) 0.4 mg QAM PO 08/03/16 09:00 09/02/16 08:59 08/04/16 07:35 0.4 MG Calcium Carbonate (Tums Chew Tab) 500-1,000 MG (1-2 TABS) Q6H PRN PO 08/03/16 12:30 09/02/16 12:29 08/04/16 14:14 1,000 MG Eszopiclone (Lunesta Tab) 1 mg HSZ PRN PO 08/04/16 12:15 09/03/16 12:14 Hydromorphone HCl (Dilaudid Inj) 1 mg Q2HWA PRN IV 08/04/16 12:15 08/18/16 12:14
[2016-08-05] MEDS: OXYCODONE HCL IR 5 MG TAB (IMMEDIATE RELEASE) PO PRN ×4 (00:02→13:35)
[2016-08-05] MEDS: ACETAMINOPHEN 325 MG TAB PO PRN (00:03)
[2016-08-05] MEDS: CALCIUM CARBONATE 500 MG CHEWABLE PO PRN (01:05)
[2016-08-05] MEDS ORDERED: DICLOFENAC SOD 1% GEL 100 GM TUBE EXT PRN (02:15)
[2016-08-05 07:08] VITALS: BP 122/68; PULSE 70; TEMP 37; O2SAT 97
--- NOTE | 2016-08-05 07:14 | Orthopedic Progress Note ---
Orthopedic Progress Note Date of Service Aug 05, 2016. Subjective Post OP Day: 5 Reports: pain controlled w PO medications, Denies: SOB, chest pain, complaints, light headedness, nausea / vomiting Additional Notes: Patient is still having difficulty sleeping. He was given a trial of Lunesta. That did not seem to work for him. Objective Date Time Temp Pulse Resp B/P Pulse Ox O2 Delivery O2 Flow Rate FiO2 08/05/16 01:10 Room Air 08/04/16 23:32 37.5 70 17 148/73 98 Room Air 08/04/16 18:18 36.9 08/04/16 15:20 37.2 71 17 128/56 96 Room Air 08/04/16 12:27 37.1 60 16 126/84 100 Room Air 08/04/16 12:00 Room Air 08/04/16 08:34 98 Room Air 08/04/16 08:10 37.4 65 20 130/78 98 Room Air 08/04/16 07:30 Room Air Laboratory Results 24 Hours: Test 08/05/16 04:44 Assessment & Plan Assessment: POD #5 sp ORIF right femur w retrograde nail/poly exchange -awaiting rehab placement - [facility] ACUTE RENAL FAILURE on Chronic Renal Impairment - improving RLE CELLULITIS with Blisters on foot Diarrhea- states BM slightly more formed today, medicine to check stool for Cdiff urinary retention - catheter in place draining well will be d/c 7 days after it was placed Insomnia- didn't feel ambien worked, will d/c and try Lunesta Coffee ground Vomiting associated with abdominal pain EGD showing Multiple Duodenal Ulcers with red spots, no active bleeding, recommending no anticoagulants for 3 weeks -recommending repeat EGD in 3 weeks before starting any Anticoagulation and or Aspirin -H/H 8.6 ACUTE RIGHT POPLITEAL DVT -No anticoagulation due to the surgery and due to recent episode of coffee ground emesis (recent EGD showed large duodenal ulcer) -s/p IVC filter placement 07/27/[address] 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 Will start Aspirin 81mg BID after 3 weeks (08/17/16)) Therapy: Physical Therapy
[2016-08-05] MEDS ORDERED: RXC5 PO (07:21)
[2016-08-05] MEDS ORDERED: OXYSR10 PO (07:21)
[2016-08-05] MEDS ORDERED: ASPEC81 PO (07:21)
--- NOTE | 2016-08-05 07:32 | Discharge Instructions ---
Discharge Instructions Date of Service Aug 05, 2016. Admission Reason for Admission: Rt Femar Fracture Discharge Discharge Diagnosis / Problem: S/P intramedullary gera of right femur fracture. Discharge Goals Goal(s): Decrease discomfort, Improve function Activity Recommendations Activity Limitations: per Instructions/Follow-up section . Instructions / Follow-Up Instructions / Follow-Up [facility] DISCHARGE INSTRUCTIONS: Femur Fracture SELF CARE INSTRUCTIONS: A. You are to ambulate with a walker for approximately 6 weeks. B. You are TOE TOUCH WEIGHT BEARING on your operative lower extremity for at least 6 weeks. C. Wear low heeled shoes with non-slip soles D. Be sure that your floors are free of things that could trip you throw rugs, electrical cords, and small objects. Avoid wet and waxed floors, especially with crutches/walker/cane. E. Try to walk several times a day with rest periods between. F. You may shower but DO NOT soak or submerge incision area in water. (No baths , swimming pools, hot tubs) G. You may have a large, band-aid like dressing over your incision (prevena). This will remain on your incision for 7 days (Tuesday08/07/16) , and then can be removed. You CAN shower with this on. If incision is leaking through the dressing, please call the office . H. Do NOT apply soap or any ointment/lotions directly over incision. I. You may use ice as needed to operative site. SPECIAL CARE INSTRUCTIONS: VERY IMPORTANT TO READ AND REVIEW A. You may be at risk for phlebitis or blood clots. a. Take ASPIRIN 81 mg twice daily. This will start on 08/17 due to IVC filter placed while in the hospital. b. If you are on Coumadin- you will have daily/weekly blood work to monitor your levels. This will be done by either your family physician/ sexologist (if you are on Coumadin chronically) versus your orthopedic surgeon. Expect a phone call the day of or the day after your blood work is drawn to adjust your dose accordingly. B. There are a few signs you need to watch for after you are home. Call [facility] at [phone] if you experience any of the following: a. If you have a temperature of 101 degrees or higher. b. Sudden increase in pain in your hip not relieved by rest or pain medication. c. Any fluid or drainage from the incision; redness of the incision. d. Shortness of breath or chest pain. B. Please call [facility] at [phone] if you have any questions or concerns about your operation or recovery. C. Call your physician if: a. Temperature is greater than 101 degrees (F). b. Pain is not relieved by prescribed pain medications. c. Increase drainage or redness from incision. d. Unanswered questions or concerns. D. Pain Medication: a. You will be prescribed pain medication upon discharge that should last till your first post-operative appointment. b. If you experience nausea and/or skin rash, discontinue this medication and contact our office for an alternative medication. c. Caution- narcotic pain medication can cause constipation. FOLLOW UP VISIT: Please call [facility] at [phone] to schedule a follow up appointment 10-14 days from the date of your surgery date. Current Hospital Diet Patient's current hospital diet: AHA Diet (Heart Healthy) Discharge Diet Recommended Diet: AHA Diet (Heart Healthy) Procedures Procedures Performed: Intramedullary Gera right femur Pending Studies Studies pending at discharge: no Laboratory Results Hemoglobin A1c Test 07/26/16 20:50 Range/Units Estimated Average Glucose 117 mg/dl Hemoglobin A1c 5.7 H 4.5-5.6 % Medical Emergencies . Who to Call and When: Medical Emergencies: If at any time you feel your situation is an emergency, please call 911 immediately. . Non-Emergent Contact Non-Emergency issues call your: Surgeon Call Non-Emergent contact if: temperature is above 101, your pain is worsening , wound has increased drainage, wound has increased redness . "Provider Documentation" section prepared by Moe Roberto. VTE Core Measure Inpt VTE Proph given/why not?: Other Anticoagulation (Aspirin 81 mg BID will be started 3 weeks after IVC filter was placed which will be 08/17/16) [place] Drug Monitoring Program Search Results: patient reviewed within database, no issues identified
[2016-08-05 08:05] LABS: MEAN CORPUSCULAR HEMOGLOBIN 29.6 pg (25-34); MEAN CORPUSCULAR HGB CONC 34.8 g/dl (32-36); MEAN PLATELET VOLUME 8.7 fL (7.4-10.4); PLATELET COUNT 231 K/uL (130-400); RED BLOOD COUNT 2.94 M/uL (4.7-6.1); WHITE BLOOD COUNT 11.95 K/uL (4.8-10.8)
[2016-08-05 08:09] LABS: BUN/CREATININE RATIO 17.5 (10-20); CALCIUM 8.4 mg/dl (8.5-10.1); CREATININE 1.1 mg/dl (0.60-1.40); MAGNESIUM 1.7 mg/dl (1.8-2.4); POTASSIUM 3.9 mmol/L (3.5-5.1)
[2016-08-05] MEDS: TAMSULOSIN HCL 0.4 MG CAP PO SCH (08:43)
[2016-08-05] MEDS: MULTIVITAMIN TAB PO SCH (08:43)
[2016-08-05] MEDS: MAGNESIUM SULFATE 1GM / D5W 1 GM in PREMIXED IN D5W 100 ML IV SCH ×2 (08:44→09:55)
[2016-08-05] MEDS: PANTOprazole SOD 40 MG TAB PO SCH (08:44)
[2016-08-05 11:25] VITALS: TEMP 36.8
[2016-08-05 13:18] VITALS: BP 122/68; PULSE 70; TEMP 36.8; O2SAT 97
--- NOTE | 2016-08-10 15:50 | DISCHARGE SUMMARY ---
DISCHARGE DIAGNOSIS: Right periprosthetic femur fracture. SECONDARY DIAGNOSES: Acute renal failure, acute blood loss anemia, and hyperkalemia CONSULTATIONS: Dr. Blake, Dr. Faulkner, Dr. Segura, Dr. Ortega, Dr. Quintanilla, Dr. Julian Meza and Dr. Sharma. COMPLICATIONS: None. PROCEDURE: The patient underwent an ORIF, right distal femur with Dr. Gomez on 07/28/2016. BRIEF HISTORY: Please see previously dictated history and physical. HOSPITAL SUMMARY: The patient was admitted on 07/26/2016 after falling and sustaining a distal femur fracture status post knee replacement on 07/27/2016 with no complaints. He was sleeping on arrival and family was spoken to about surgery. The patient was in good spirits, but was disappointed about his accident. He underwent IVC filter placement with Dr. Sharma. Vital signs were stable. He was afebrile. The patient had a knee immobilizer on the right lower extremity. Right foot was swollen with mild erythema. He had small blisters noted near the toes from swelling. He is neurovascularly intact and alert and oriented. Hemoglobin was 7.6 and later that day 8.2. The patient was made n.p.o. for IM nail the following day. On July 28, the patient was seen at the bedside. He was sleeping at the time of exam, NG tube was inserted, restraints were in place and RN states he was combative overnight. Vital signs were stable. He was afebrile. He has blisters noted on the right lower extremity at the distal end of the metatarsal. Mild erythema to the right knee joint. Hemoglobin was 9.5. Surgery was held, pending improvement of renal status. Hemoglobin was stable at 9.5. On July 29, the patient was lying in bed. He was oriented to person and place. He was on a one to one. He developed a temperature of 38.5. His central line was removed and sent for culture, blood cultures were sent around midnight and surgery was postponed. Vital signs currently stable with temperature of 37.8. Knee incision was actually improving, cellulitis was less. He has some erythema at the distal portion of the incision and slight erythema at the ankle. He does have skin blisters noted at the toes. Hemoglobin was 9.1, BUN and creatinine were 40 and 1.9. The patient was again made n.p.o. for ORIF the following day. On July 30, the patient was doing well. He had no new complaints. The patient was added on for ORIF. He was neurovascularly intact. Vital signs were stable. He had an immobilizer on the right lower extremity. Hemoglobin was 9.3. The patient underwent ORIF of the right femur on July 31. Procedure went without complication. The patient was taken back to his room in stable condition. On postop day #1, the patient was feeling well without complaints. He denied chest pain or shortness of breath. Vital signs were stable. He was afebrile. Prevena dressing was clean, dry and intact. Hemovac drained 150 mL per shift. Hemoglobin was 9.7. The patient began physical therapy was toe-touch weightbearing with a walker. He was placed on aspirin for DVT prophylaxis. Pain was being managed with Tylenol and Roxicodone p.r.n. Postop day #2, the patient was feeling well and had minimal pain at the knee. He was complaining of bladder fullness and inability to urinate. Vital signs were stable. He was afebrile. Hemoglobin was 8.8. The patient was transfused 2 more units, H\T\H was stable. Postop day #3, the patient was improving. He denied chest pain or shortness of breath. Vital signs were stable. He was afebrile. Dressing was clean, dry and intact. He was neurovascularly intact. Calves were soft and nontender. Hemoglobin was 8.6. The patient continued to improve. A referral is pending for [facility]. Postop day #4, the patient was improving. He continued to deny chest pain or shortness of breath. Vital signs were stable. He was afebrile. Dressing was clean, dry and intact. He was neurovascularly intact. Calves were soft and nontender. Hemoglobin was 8.6. The patient's EGD showed evidence of a large duodenal ulcer. He was recommended to have no anticoagulation for 3 weeks. For anemia, the patient received a total of 4 units PRBCs. Hemoglobin was 8.6 with a goal of hemoglobin above 8. Referral still pending for [facility]. Postop day #5, the patient was still having difficulty sleeping. He was given a trial of Lunesta, which did not help. Vital signs were stable. He was afebrile. Prevena was clean, dry and intact. He was neurovascularly intact. The patient was accepted at [facility] and he was transferred later that day in stable condition. For further review, please see the chart. Lab, x-ray data and discharge instructions as per chart.
== END 2016-08-05 14:27 | DRG 481 ==
LOC: ENRESERVDT → ENRESERVTM → C.3E 18:43 → C.MSICU 21:50 → C.2T 07-27 20:51 → C.3E 08-01 10:35
PROVIDERS: ADMIT Orthopaedic Surgery; ATTEND Orthopaedic Surgery
PROC: 06H03DZ Insertion of Intraluminal Device into Inferior Vena Cava, Percutaneous Approach (ICD-10-PCS; 2016-07-27)
PROC: 0DB68ZX Excision of Stomach, Via Natural or Artificial Opening Endoscopic, Diagnostic (ICD-10-PCS; 2016-07-28)
PROC: 0QSB06Z Reposition Right Lower Femur with Intramedullary Internal Fixation Device, Open Approach (ICD-10-PCS; principal; 2016-07-31 07:30)
DX: S72.401A Unspecified fracture of lower end of right femur, initial encounter for closed fracture (principal); I82.431 Acute embolism and thrombosis of right popliteal vein; L03.115 Cellulitis of right lower limb; N17.9 Acute kidney failure, unspecified; D62 Acute posthemorrhagic anemia; Z68.41 Body mass index [BMI] 40.0-44.9, adult; K21.0 Gastro-esophageal reflux disease with esophagitis; M10.9 Gout, unspecified; Z79.82 Long term (current) use of aspirin; Z79.899 Other long term (current) drug therapy; E87.5 Hyperkalemia; I12.9 Hypertensive chronic kidney disease with stage 1 through stage 4 chronic kidney disease, or unspecified chronic kidney disease; N18.9 Chronic kidney disease, unspecified; R00.1 Bradycardia, unspecified; R33.8 Other retention of urine; N40.1 Benign prostatic hyperplasia with lower urinary tract symptoms; K26.9 Duodenal ulcer, unspecified as acute or chronic, without hemorrhage or perforation; H91.90 Unspecified hearing loss, unspecified ear; K29.70 Gastritis, unspecified, without bleeding; E66.9 Obesity, unspecified; R19.7 Diarrhea, unspecified; G47.00 Insomnia, unspecified; D72.829 Elevated white blood cell count, unspecified; Z96.651 Presence of right artificial knee joint; E83.42 Hypomagnesemia; W18.11XA Fall from or off toilet without subsequent striking against object, initial encounter; Y93.E8 Activity, other personal hygiene; Y92.002 Bathroom of unspecified non-institutional (private) residence as the place of occurrence of the external cause; R41.0 Disorientation, unspecified; T44.7X5A Adverse effect of beta-adrenoreceptor antagonists, initial encounter

== ENCOUNTER → 2016-08-12 | Outpatient (CLI) | payer OTHER ==
[~2016-08-12] MED LIST changes: -ACET-1138 PO; -ASPITAB71 PO; -CLB200 PO; -OXYC1TAB3 PO; +TAMS0.4C38 PO
--- NOTE | 2016-08-12 12:34 | DIAGNOSTIC IMAGING REPORT ---
RIGHT KNEE 1 OR 2 VIEWS ROUTINE CLINICAL HISTORY: Status post open reduction internal fixation. COMPARISON: Right knee radiographs July 16, 2016 and July 26, 2016 and intraoperative fluoroscopic images of the right femur July 31, 2016.. FINDINGS: A total right knee arthroplasty is noted. Hardware is intact. An intramedullary dandy with distal screws within the right femur are partially imaged on this exam and fully depicted on the right femur radiographs which were performed today. The hardware is intact. Alignment of the oblique comminuted distal right femoral fracture is unchanged from intraoperative exam of August 12, 2016. There is a possible right knee joint effusion. IMPRESSION: Stable postoperative findings following total right knee arthroplasty and internal fixation of the comminuted, displaced right femoral fracture. Electronically signed by: Oswald Real M.D. 08/12/2016 12:32 PM Dictated Date/Time: 08/12/2016 12:30 PM
--- NOTE | 2016-08-12 12:43 | DIAGNOSTIC IMAGING REPORT ---
RIGHT FEMUR 2 VIEWS ROUTINE CLINICAL HISTORY: S/P ORIF Right COMPARISON STUDY: Right femur 07/31/2016. FINDINGS: There is again noted a comminuted and mildly displaced fracture within the distal right femoral shaft. The patient is status post internal fixation of the fracture with intramedullary dandy with proximal and distal interlocking screws. The hardware remains intact. There is 1 cm of lateral displacement and 12 mm of overlap of the distal femur. Right total knee arthroplasty is again noted. IMPRESSION: Internal fixation of a comminuted distal right femoral fracture. The hardware appears intact. The displaced fragments remain unchanged in alignment as described above. Electronically signed by: Kevin Lane M.D. 08/12/2016 12:42 PM Dictated Date/Time: 08/12/2016 12:39 PM
== END | disposition home or self-care (01) ==
LOC: C.RAD 11:29
PROVIDERS: ATTEND Orthopaedic Surgery
DX: Z96.7 Presence of other bone and tendon implants (principal); Z96.651 Presence of right artificial knee joint